=== PATIENT | female | born 1945 | race Caucasian/White ===

== ENCOUNTER 2019-06-29 14:08 | Outpatient (CLI) | payer OTHER, SELFPAY ==
--- NOTE | ~2019-06-29 | MM_ITS ---
EXAMINATION: MM screening ankit BI w alisia HISTORY: Screening mammogram TECHNIQUE: Craniocaudal and mediolateral oblique 3-D tomosynthesis images were obtained and synthetic 2-D images were generated. CAD analysis was submitted and interpreted. COMPARISON: 06/22/2018, 06/20/2017, 06/20/2016 bilateral digital screening mammogram examinations BREAST PARENCHYMAL COMPOSITION: The breasts are almost entirely fatty. FINDINGS: Occasional bilateral benign calcifications. There is no evidence of suspicious mass, calcif ication, or architectural distortion to suggest malignancy in either breast. There has been no suspic ious interval change. IMPRESSION: 1. No mammographic evidence of malignancy. 2. Recommend routine screening mammography in one year. BI-RADS Category 1: Negative Reviewed, dictated and finalized at location A. ETING CLERK
== END 2019-06-29 14:09 | disposition home or self-care (01) ==
PROVIDERS: PCP Internal Medicine; Visit Provider Obstetrics & Gynecology
DX: Z12.31 Encounter for screening mammogram for malignant neoplasm of breast (principal)
CPT/HCPCS: 77063; 77067

== ENCOUNTER 2019-11-02 15:13 | Outpatient (CLI) | payer OTHER, SELFPAY ==
[2019-11-02 15:29] LABS: Basophils Percent Auto 0.2 % (0.2-1.2); Eosinophils Absolute Auto 0.2 K/mm3 (0-0.3); Eosinophils Percent Auto 2.1 % (0-4.4); Hematocrit 37.5 % (37.0-47.0); Immature Granulocyte Absolute 0.04 K/mm3 (0.00-0.031); Immature Granulocyte Percent A 0.4 % (0-0.5); Lymphocytes Absolute Auto 2.04 K/mm3 (0.9-3.2); Lymphocytes Percent Auto 22.6 % (18.3-44.2); Mean Corpuscular Hemoglobin 31.2 pg (26-34); Mean Corpuscular Volume 97.4 fl (80-100); Mean Platelet Volume 9.9 fl (7.4-10.4); Monocytes Absolute Auto 0.6 K/mm3 (0.1-0.6); Monocytes Percent Auto 6.1 % (2.6-8.5); Neutrophils Absolute Auto 6.2 K/mm3 (1.3-6.7); Neutrophils Percent Auto 68.6 % (45.5-73.1); Platelet Count Result 246 k/mm3 (150-375); Red Blood Count 3.85 M/mm3 (4.2-5.4); Red Cell Distribution Width 12.4 % (11.5-14.5)
[2019-11-02 15:42] LABS: Blood Urea Nitrogen 18 mg/dL (7-17); Calcium 10.6 mg/dL (8.4-10.2); Carbon Dioxide 30 mmol/L (22-30); Chloride 101 mmol/L (98-107); Cholesterol 143 mg/dL (0-200); Estimated Glomerular Filt Rate 40; Glucose 100 mg/dL (65-105); HDL Direct 57 mg/dL; Potassium 4.7 mmol/L (3.4-5.0); Sodium 139 mmol/L (137-145); Triglycerides 192 mg/dL (<150)
[2019-11-02 15:53] LABS: LDL Cholesterol Direct 47 mg/dL
[2019-11-02 16:13] LABS: Thyroid Stimulating Hormone 0.069 uIU/mL (0.465-4.680)
[2019-11-02 16:50] LABS: Free T4 Free Thyroxine 1.29 ng/mL (0.78-2.19)
== END 2019-11-02 15:14 | disposition home or self-care (01) ==
PROVIDERS: PCP Internal Medicine; Visit Provider Internal Medicine
DX: E78.2 Mixed hyperlipidemia (principal); E03.9 Hypothyroidism, unspecified; I10 Essential (primary) hypertension
CPT/HCPCS: 36415; 80048; 80061; 84439; 84443; 85025

== ENCOUNTER 2020-03-03 08:06 | Outpatient (CLI) | payer OTHER, SELFPAY ==
[2020-03-03 08:58] LABS: Appearance Urine Clear (Clear); Bilirubin Urine Negative (Negative); Blood Urine Negative (Negative); Color Urine Yellow (Yellow); Glucose Urine UA Negative (Negative); Ketones Urine Negative (Negative); Leukocyte Esterase Ur 1+ LEU/UL (NEGATIVE); Nitrate Urine Negative (Negative); Protein Urine Negative (Negative); Urobilinogen Urine 0.2 mg/dL (<2.0)
[2020-03-03 09:00] LABS: Alanine Aminotransferase 12 U/L (4-35); Albumin Level 4.5 g/dL (3.5-5.1); Alkaline Phosphatase 80 U/L (38-126); Anion Gap 8 mmol/L (8-16); Aspartate Amino Transferase 27 U/L (14-36); Bilirubin,Total 0.6 mg/dL (0.2-1.3); Blood Urea Nitrogen 15 mg/dL (7-17); Calcium 10.1 mg/dL (8.4-10.2); Carbon Dioxide 31 mmol/L (22-30); Chloride 102 mmol/L (98-107); Estimated Glomerular Filt Rate 44; Glucose 117 mg/dL (65-105); Potassium 4.4 mmol/L (3.4-5.0); Sodium 141 mmol/L (137-145)
[2020-03-03 09:11] LABS: RBC Urine 0-2 /hpf (0-2); WBC Urine 0-3 /hpf (0-3)
[2020-03-03 09:29] LABS: Add Urine Microscopic? YES
[2020-03-03 09:30] LABS: Thyroid Stimulating Hormone 0.238 uIU/mL (0.465-4.680)
[2020-03-03 09:38] LABS: Free T4 Free Thyroxine 1.33 ng/mL (0.78-2.19)
[2020-03-03 09:55] LABS: Hemoglobin A1C 5.5 % (<5.7)
== END 2020-03-03 08:07 | disposition home or self-care (01) ==
PROVIDERS: PCP Internal Medicine; Visit Provider Internal Medicine
DX: R73.09 Other abnormal glucose (principal); Z79.899 Other long term (current) drug therapy; I10 Essential (primary) hypertension; E03.9 Hypothyroidism, unspecified
CPT/HCPCS: 36415; 80053; 81001; 83036; 84439; 84443

== ENCOUNTER 2020-07-06 14:27 | Outpatient (CLI) | payer OTHER, SELFPAY ==
--- NOTE | ~2020-07-06 | MM_ITS ---
EXAMINATION: MM screening [facility] BI w alisia HISTORY: Screening mammogram TECHNIQUE: Craniocaudal and mediolateral oblique 3-D tomosynthesis images were obtained and synthetic 2-D images were generated. CAD analysis was submitted and interpreted. COMPARISON: 06/29/2019, 06/22/2018, 06/20/2017 BREAST PARENCHYMAL COMPOSITION: The breasts are almost entirely fatty. FINDINGS: Scattered benign-appearing calcifications are present. There is no evidence of suspicious m ass, calcification, or architectural distortion to suggest malignancy in either breast. There has bee n no suspicious interval change. IMPRESSION: 1. No mammographic evidence of malignancy. 2. Recommend routine screening mammography in one year. BI-RADS Category 2: Benign finding(s). Reviewed, dictated and finalized at location A. FICIAL MARBLE WORKER
== END 2020-07-06 14:28 | disposition home or self-care (01) ==
LOC: ANHIMG 14:29
PROVIDERS: PCP Internal Medicine; Visit Provider Obstetrics & Gynecology
DX: Z12.31 Encounter for screening mammogram for malignant neoplasm of breast (principal)
CPT/HCPCS: 77063; 77067

== ENCOUNTER 2020-07-13 07:45 | Outpatient (CLI) | payer OTHER, SELFPAY ==
[2020-07-13 08:12] LABS: Basophils Percent Auto 0.2 % (0.2-1.2); Eosinophils Absolute Auto 0.2 K/mm3 (0-0.3); Eosinophils Percent Auto 2.1 % (0-4.4); Hematocrit 39.1 % (37.0-47.0); Hemoglobin 12.4 g/dL (12.0-15.0); Immature Granulocyte Absolute 0.03 K/mm3 (0.00-0.031); Immature Granulocyte Percent A 0.3 % (0-0.5); Lymphocytes Absolute Auto 1.72 K/mm3 (0.9-3.2); Lymphocytes Percent Auto 18.5 % (18.3-44.2); Mean Corpuscular HGB Conc 31.7 g/dl (32-36); Mean Corpuscular Hemoglobin 31.1 pg (26-34); Mean Platelet Volume 9.9 fl (7.4-10.4); Monocytes Absolute Auto 0.5 K/mm3 (0.1-0.6); Monocytes Percent Auto 5.8 % (2.6-8.5); Neutrophils Absolute Auto 6.8 K/mm3 (1.3-6.7); Neutrophils Percent Auto 73.1 % (45.5-73.1); Platelet Count Result 217 k/mm3 (150-375); Red Blood Count 3.99 M/mm3 (4.2-5.4); Red Cell Distribution Width 12.4 % (11.5-14.5); White Blood Count 9.3 K/mm3 (4.5-10.0)
[2020-07-13 08:20] LABS: Hemoglobin A1C 5.5 % (<5.7)
[2020-07-13 08:22] LABS: Cholesterol 147 mg/dL (0-200); HDL Direct 65 mg/dL; Triglycerides 140 mg/dL (<150)
[2020-07-13 08:33] LABS: LDL Cholesterol Direct 46 mg/dL
[2020-07-13 08:53] LABS: Thyroid Stimulating Hormone 0.124 uIU/mL (0.465-4.680)
[2020-07-13 10:13] LABS: Free T4 Free Thyroxine 1.28 ng/mL (0.78-2.19); Vitamin D 25 Hydroxy 51.1 ng/mL
== END 2020-07-13 07:46 | disposition home or self-care (01) ==
LOC: ANHLAB 07:47
PROVIDERS: PCP Internal Medicine; Visit Provider Internal Medicine
DX: R73.9 Hyperglycemia, unspecified (principal); D50.9 Iron deficiency anemia, unspecified; Z79.899 Other long term (current) drug therapy; E78.2 Mixed hyperlipidemia; E55.9 Vitamin D deficiency, unspecified; E03.9 Hypothyroidism, unspecified
CPT/HCPCS: 36415; 80061; 82306; 83036; 84439; 84443; 85025

== ENCOUNTER 2020-08-04 08:14 | Outpatient (CLI) | payer OTHER, SELFPAY | END 2020-08-04 08:15 | disposition home or self-care (01) | LOC: ANHCOVIDVC 08:14 | PROVIDERS: PCP Internal Medicine | DX: Z23 Encounter for immunization (principal) | CPT/HCPCS: 0001A; 91300 ==

== ENCOUNTER 2020-08-25 08:14 | Outpatient (CLI) | payer OTHER, SELFPAY | END 2020-08-25 08:15 | LOC: ANHCOVIDVC 08:15 | PROVIDERS: PCP Internal Medicine | DX: Z23 Encounter for immunization (principal) | CPT/HCPCS: 0002A; 91300 ==

== ENCOUNTER 2020-09-18 09:24 | Outpatient (CLI) | payer OTHER, SELFPAY ==
--- NOTE | ~2020-09-18 | NM_ITS ---
EXAMINATION: NM german stress w perfusion DATE: 09/18/2020 12:11 INDICATION: Dyspnea on exertion. TECHNIQUE: Rest images were obtained following intravenous administration of 9.31 mCi Tc99m tetrofosm in (Myoview). The patient was infused intravenously with Lexiscan (regadenoson). Then, 29.4 mCi Tc99m tetrofosmin (Myoview) was administered intravenously, and stress images were obtained. Data was eileen nstructed into short axis and horizontal and vertical long axis SPECT images. Gated SPECT images were also obtained. COMPARISON: Myocardial perfusion imaging 06/30/2017 FINDINGS: There is no definite reversible or fixed perfusion abnormality to suggest ischemia or infar ction. There is no segmental wall motion abnormality. Left ventricular ejection fraction measures 7 0%. IMPRESSION: 1. No definite ischemia or infarct. 2. Normal left ventricular ejection fraction measuring 70%. Reviewed, dictated and finalized at location B.
--- NOTE | 2020-09-18 09:48 | EST_ITS ---
Patient Info Name: Renay Collado Age: 74 years : 1945 Gender: Female Ht: 60 in Wt: 130 lbs BSA: 1.59 m2 Exam Date: 09/18/2020 10:33 AM Exam Location: [facility] Exam Room: [facility] Patient Status: Outpatient Admit Date: 09/18/2020 Staff Ordering Physician: Juan Adamson MD Attending Provider: Exercise Technologist: Merlene Douglas CT Exercise Physician: Beka Esquivel DO Exam Type: CA stress german w NM Study Info A nuclear stress test was performed. Summary 1. 1. Negative lexiscan stress test for ischemic ST changes by ECG criteria. 2. 2. Baseline hypertension. 3. 3. Nuclear scan to follow and will be reported separately. Please correlate with it. 4. 4. Patient informed of the above results. Protocol: Lexiscan Stress ECG Details Stage: REST Duration (min): 1 min : 33 sec HR (bpm): 95 SBP (mmHg): 167 DBP (mmHg): 93 Stage: REST Duration (min): 9 min : 54 sec HR (bpm): 94 SBP (mmHg): 167 DBP (mmHg): 93 Stage: STAGE 1 Duration (min): 0 min : 59 sec HR (bpm): 110 SBP (mmHg): 189 DBP (mmHg): 103 Stage: RECOVERY Duration (min): 1 min : 0 sec HR (bpm): 113 SBP (mmHg): 189 DBP (mmHg): 103 Stage: RECOVERY Duration (min): 2 min : 0 sec HR (bpm): 112 SBP (mmHg): 157 DBP (mmHg): 80 Stage: RECOVERY Duration (min): 2 min : 8 sec HR (bpm): 113 SBP (mmHg): 157 DBP (mmHg): 80 Rest HR: 94 bpm Peak HR: 114 bpm Rest Sys BP: 167 mmHg Peak Sys BP: 189 mmHg Max Pred HR: 148 bpm % Max Pred HR: 77 % Target HR: 126 bpm Max RPP: 21,546 bpm*mmHg Termination Reason: Completed protocol Cardiac Symptoms: Shortness of breath Total Time: 1 min : 0 sec Rest Lemos BP: 93 mmHg Peak Lemos BP: 103 mmHg Total Dose: 0.4 mg Resting ECG Sinus rhythm, RBBB, low voltage in precordial leads. Stress ECG No ST changes. Arrhythmias None. Report Signatures
== END 2020-09-18 09:25 | disposition home or self-care (01) ==
PROVIDERS: PCP Internal Medicine; Visit Provider Internal Medicine
DX: R06.02 Shortness of breath (principal); R79.9 Abnormal finding of blood chemistry, unspecified
CPT/HCPCS: 78452; 93017; A9502; J2785

== ENCOUNTER 2021-01-09 07:40 | Outpatient (CLI) | payer OTHER, SELFPAY ==
[2021-01-09 08:14] LABS: Add Urine Microscopic? YES; Appearance Urine Clear (Clear); Bilirubin Urine Negative (Negative); Blood Urine Negative (Negative); Color Urine Straw (Yellow); Glucose Urine UA Negative (Negative); Ketones Urine Negative (Negative); Leukocyte Esterase Ur 1+ LEU/UL (NEGATIVE); Nitrate Urine Negative (Negative); Protein Urine Negative (Negative); RBC Urine 0-2 /hpf (0-2); Specific Grav Ur 1.009 (1.001-1.035); Urobilinogen Urine Negative mg/dL (<2.0)
[2021-01-09 08:17] LABS: Alanine Aminotransferase 15 U/L (4-35); Albumin Level 4.4 g/dL (3.5-5.1); Alkaline Phosphatase 70 U/L (38-126); Anion Gap 8 mmol/L (8-16); Aspartate Amino Transferase 28 U/L (14-36); Bilirubin,Total 0.6 mg/dL (0.2-1.3); Blood Urea Nitrogen 25 mg/dL (7-17); Carbon Dioxide 28 mmol/L (22-30); Chloride 102 mmol/L (98-107); Cholesterol 146 mg/dL (0-200); Estimated Glomerular Filt Rate 37; Glucose 99 mg/dL (65-110); HDL Direct 56 mg/dL; Potassium 4.3 mmol/L (3.4-5.0); Sodium 138 mmol/L (137-145); Triglycerides 216 mg/dL (<150)
[2021-01-09 08:28] LABS: LDL Cholesterol Direct 52 mg/dL
[2021-01-09 09:30] LABS: Thyroid Stimulating Hormone 0.034 uIU/mL (0.465-4.680)
[2021-01-09 09:38] LABS: Hemoglobin A1C 5.6 % (<5.7)
[2021-01-09 10:17] LABS: Free T4 Free Thyroxine 1.26 ng/mL (0.78-2.19)
== END 2021-01-09 07:41 | disposition home or self-care (01) ==
LOC: ANHLAB 07:43
PROVIDERS: PCP Internal Medicine; Visit Provider Internal Medicine
DX: R73.09 Other abnormal glucose (principal); Z79.899 Other long term (current) drug therapy; I10 Essential (primary) hypertension; E03.9 Hypothyroidism, unspecified; E78.2 Mixed hyperlipidemia
CPT/HCPCS: 36415; 80053; 80061; 81001; 83036; 84439; 84443

== ENCOUNTER 2021-05-22 07:01 | Outpatient (CLI) | payer OTHER, SELFPAY ==
[2021-05-22 07:38] LABS: Hemoglobin A1C 5.7 % (<5.7)
[2021-05-22 07:41] LABS: Basophils Percent Auto 0.1 % (0.2-1.2); Eosinophils Absolute Auto 0.3 K/mm3 (0-0.3); Eosinophils Percent Auto 3.4 % (0-4.4); Hematocrit 38.8 % (37.0-47.0); Hemoglobin 12.5 g/dL (12.0-15.0); Immature Granulocyte Absolute 0.03 K/mm3 (0.00-0.031); Immature Granulocyte Percent A 0.3 % (0-0.5); Lymphocytes Absolute Auto 1.89 K/mm3 (0.9-3.2); Lymphocytes Percent Auto 20.6 % (18.3-44.2); Mean Corpuscular HGB Conc 32.2 g/dl (32-36); Mean Corpuscular Hemoglobin 31.1 pg (26-34); Mean Corpuscular Volume 96.5 fl (80-100); Mean Platelet Volume 10.2 fl (7.4-10.4); Monocytes Absolute Auto 0.6 K/mm3 (0.1-0.6); Monocytes Percent Auto 6.9 % (2.6-8.5); Neutrophils Absolute Auto 6.3 K/mm3 (1.3-6.7); Neutrophils Percent Auto 68.7 % (45.5-73.1); Platelet Count Result 191 k/mm3 (150-375); Red Blood Count 4.02 M/mm3 (4.2-5.4); Red Cell Distribution Width 12.5 % (11.5-14.5); White Blood Count 9.2 K/mm3 (4.5-10.0)
[2021-05-22 07:42] LABS: Alanine Aminotransferase 20 U/L (4-35); Albumin Level 4.8 g/dL (3.5-5.1); Alkaline Phosphatase 77 U/L (38-126); Anion Gap 10 mmol/L (8-16); Aspartate Amino Transferase 42 U/L (14-36); Bilirubin,Total 1.2 mg/dL (0.2-1.3); Blood Urea Nitrogen 17 mg/dL (7-17); Calcium 9.8 mg/dL (8.4-10.2); Carbon Dioxide 25 mmol/L (22-30); Chloride 102 mmol/L (98-107); Cholesterol 162 mg/dL (0-200); Estimated Glomerular Filt Rate 40; Glucose 117 mg/dL (65-110); HDL Direct 59 mg/dL; Potassium 4.6 mmol/L (3.4-5.0); Sodium 137 mmol/L (137-145); Triglycerides 219 mg/dL (<150)
[2021-05-22 07:45] LABS: LDL Cholesterol Direct 55 mg/dL
[2021-05-22 08:03] LABS: Thyroid Stimulating Hormone 0.056 uIU/mL (0.465-4.680)
[2021-05-22 11:22] LABS: Free T4 Free Thyroxine 1.45 ng/mL (0.78-2.19)
== END 2021-05-22 07:02 | disposition home or self-care (01) ==
LOC: ANHLAB 07:03
PROVIDERS: PCP Internal Medicine; Visit Provider Internal Medicine
DX: E03.9 Hypothyroidism, unspecified (principal); E78.2 Mixed hyperlipidemia; I10 Essential (primary) hypertension; Z79.899 Other long term (current) drug therapy; D50.9 Iron deficiency anemia, unspecified; I45.10 Unspecified right bundle-branch block; K21.9 Gastro-esophageal reflux disease without esophagitis
CPT/HCPCS: 36415; 80053; 80061; 82306; 83036; 84439; 84443; 85025

== ENCOUNTER 2021-05-31 11:32 | Outpatient (CLI) | payer OTHER, SELFPAY ==
[2021-06-05 19:59] LABS: Albumin 4.2 g/dL (3.8-4.8); Alpha 1 Globulin 0.4 g/dL (0.2-0.3); Alpha 2 Globulin 1.1 g/dL (0.5-0.9); Beta 1 Globulin 0.5 g/dL (0.4-0.6); Gamma Globulin 1.4 g/dL (0.8-1.7); Protein, Total 7.9 g/dL (6.1-8.1)
[2021-06-07 07:31] LABS: Creatinine, Random Urine 61 mg/dL (20-275); Total Protein/Creatinine Ratio 115 mg/g creat (21-161)
== END 2021-05-31 11:33 | disposition home or self-care (01) ==
LOC: ANHLAB 11:33
PROVIDERS: PCP Internal Medicine; Visit Provider Internal Medicine
DX: R77.9 Abnormality of plasma protein, unspecified (principal)
CPT/HCPCS: 36415; 82570; 84155; 84156; 84165; 84166

== ENCOUNTER 2021-07-10 09:23 | Outpatient (CLI) | payer OTHER, SELFPAY ==
--- NOTE | ~2021-07-10 | MM_ITS ---
EXAMINATION: MM screening ankit BI w alisia HISTORY: Screening TECHNIQUE: Craniocaudal and mediolateral oblique 3-D tomosynthesis images were obtained and synthetic 2-D images were generated. CAD analysis was submitted and interpreted. COMPARISON: Comparison to multiple prior studies sequentially, with oldest reviewed study dated 05/03. BREAST PARENCHYMAL COMPOSITION: There are scattered areas of fibroglandular density. FINDINGS: There is no evidence of suspicious mass, calcification, or architectural distortion to sugg est malignancy in either breast. There has been no suspicious interval change. IMPRESSION: 1. No mammographic evidence of malignancy. 2. Recommend routine screening mammography in one year. BI-RADS Category 1: Negative Reviewed, dictated and finalized at location A. HER THEATER ARTS
== END 2021-07-10 09:24 | disposition home or self-care (01) ==
LOC: ANHIMG 09:25
PROVIDERS: PCP Internal Medicine; Visit Provider Obstetrics & Gynecology
DX: Z12.31 Encounter for screening mammogram for malignant neoplasm of breast (principal)
CPT/HCPCS: 77063; 77067

== ENCOUNTER 2021-10-01 07:18 | Outpatient (CLI) | payer OTHER, SELFPAY ==
[2021-10-01 07:49] LABS: Basophils Percent Auto 0.1 % (0.2-1.2); Eosinophils Absolute Auto 0.2 K/mm3 (0-0.3); Eosinophils Percent Auto 2.4 % (0-4.4); Hematocrit 39.5 % (37.0-47.0); Hemoglobin 12.2 g/dL (12.0-15.0); Immature Granulocyte Absolute 0.04 K/mm3 (0.00-0.031); Immature Granulocyte Percent A 0.5 % (0-0.5); Lymphocytes Absolute Auto 1.91 K/mm3 (0.9-3.2); Lymphocytes Percent Auto 21.9 % (18.3-44.2); Mean Corpuscular HGB Conc 30.9 g/dl (32-36); Mean Corpuscular Hemoglobin 30.5 pg (26-34); Mean Corpuscular Volume 98.8 fl (80-100); Mean Platelet Volume 10.1 fl (7.4-10.4); Monocytes Absolute Auto 0.5 K/mm3 (0.1-0.6); Monocytes Percent Auto 6.2 % (2.6-8.5); Neutrophils Percent Auto 68.9 % (45.5-73.1); Platelet Count Result 177 k/mm3 (150-375); Red Cell Distribution Width 12.6 % (11.5-14.5); White Blood Count 8.7 K/mm3 (4.5-10.0)
[2021-10-01 07:59] LABS: Alanine Aminotransferase 20 U/L (4-35); Albumin Level 4.9 g/dL (3.5-5.1); Alkaline Phosphatase 86 U/L (38-126); Anion Gap 8 mmol/L (8-16); Aspartate Amino Transferase 35 U/L (14-36); Bilirubin,Total 1.2 mg/dL (0.2-1.3); Blood Urea Nitrogen 17 mg/dL (7-17); Calcium 9.7 mg/dL (8.4-10.2); Carbon Dioxide 26 mmol/L (22-30); Chloride 103 mmol/L (98-107); Cholesterol 162 mg/dL (0-200); Estimated Glomerular Filt Rate 40; Glucose 113 mg/dL (65-110); HDL Direct 66 mg/dL; Potassium 4.4 mmol/L (3.4-5.0); Sodium 137 mmol/L (137-145); Triglycerides 154 mg/dL (<150)
[2021-10-01 08:05] LABS: Hemoglobin A1C 5.6 % (<5.7)
[2021-10-01 08:10] LABS: LDL Cholesterol Direct 48 mg/dL
[2021-10-01 08:20] LABS: Free T4 Free Thyroxine 1.61 ng/mL (0.78-2.19)
[2021-10-01 08:28] LABS: Thyroid Stimulating Hormone < 0.015 uIU/mL (0.465-4.680)
== END 2021-10-01 07:19 | disposition home or self-care (01) ==
LOC: ANHLAB 07:20
PROVIDERS: PCP Internal Medicine; Visit Provider Internal Medicine
DX: R73.09 Other abnormal glucose (principal); I10 Essential (primary) hypertension; E03.9 Hypothyroidism, unspecified; E78.2 Mixed hyperlipidemia
CPT/HCPCS: 36415; 80053; 80061; 83036; 84439; 84443; 85025

== ENCOUNTER 2022-01-16 10:08 | Outpatient (CLI) | payer OTHER, SELFPAY ==
--- NOTE | ~2022-01-16 | XR_ITS ---
EXAMINATION: XR sinus min 3V INDICATION: Chronic sinus pain TECHNIQUE: Five views of the paranasal sinuses are obtained. COMPARISON: None available FINDINGS: The frontal sinuses are hypoplastic. The visualized paranasal sinuses appear to be well aer ated. The facial bones are unremarkable. Moderate to severe cervical spondylosis is noted. IMPRESSION: 1. Unremarkable sinus radiographs. If there is high clinical suspicion for sinus disease, consider si nus CT. Reviewed, dictated and finalized at location A. IMPRESSION: 1. Unremarkable sinus radiographs. If there is high clinical suspicion for sinu s disease, consider sinus CT.
== END 2022-01-16 10:09 | disposition home or self-care (01) ==
LOC: ANHIMG 10:12
PROVIDERS: PCP Internal Medicine; Visit Provider Internal Medicine
DX: R51.9 Headache, unspecified (principal); J34.89 Other specified disorders of nose and nasal sinuses
CPT/HCPCS: 70220

== ENCOUNTER 2022-01-29 13:45 | Outpatient (CLI) | payer OTHER, SELFPAY ==
--- NOTE | ~2022-01-29 | CT_ITS ---
EXAMINATION: CT sinus wo con DATE: 01/29/2022 14:05 INDICATION: Chronic sinus pain TECHNIQUE: Computed tomography (CT) of the paranasal sinuses was performed without contrast. Iterativ e reconstruction technique was employed. Exam dose: 272.65 mGy-cm total exam DLP. COMPARISON: 01/16/2022 sinuses FINDINGS: Midline nasal septum. Moderate symmetric prominence of the nasal turbinates. The ostiomeatal units are patent bilaterally. There is mild mucoperiosteal thickening of the lower aspect of the right sphenoid sinus but the paran anna sinuses and mastoid air cells are otherwise normally developed and aerated. IMPRESSION: Mild mucoperiosteal thickening of the lower aspect of the right sphenoid sinus; otherwis e patent paranasal sinuses, ostiomeatal units and paranasal sinuses Reviewed, dictated and finalized at Location A. Reviewed, dictated and finalized at location B. IMPRESSION: Mild mucoperiosteal thickening of the lower aspect of the right sp henoid sinus; otherwise patent paranasal sinuses, ostiomeatal units and paranas al sinuses
== END 2022-01-29 13:46 | disposition home or self-care (01) ==
PROVIDERS: PCP Internal Medicine; Visit Provider Internal Medicine
DX: R44.8 Other symptoms and signs involving general sensations and perceptions (principal); J34.89 Other specified disorders of nose and nasal sinuses
CPT/HCPCS: 70486

== ENCOUNTER 2022-02-26 07:31 | Outpatient (CLI) | payer OTHER, SELFPAY ==
[2022-02-26 08:00] LABS: Anion Gap 15 mmol/L (8-16); Blood Urea Nitrogen 19 mg/dL (7-17); Calcium 9.7 mg/dL (8.4-10.2); Carbon Dioxide 26 mmol/L (22-30); Chloride 100 mmol/L (98-107); Cholesterol 158 mg/dL (0-200); Estimated Glomerular Filt Rate 44; Glucose 131 mg/dL (65-110); HDL Direct 71 mg/dL; Potassium 3.9 mmol/L (3.4-5.0); Sodium 141 mmol/L (137-145); Triglycerides 128 mg/dL (<150)
[2022-02-26 08:05] LABS: Hemoglobin A1C 5.5 % (<5.7)
[2022-02-26 08:11] LABS: LDL Cholesterol Direct 46 mg/dL
[2022-02-26 08:21] LABS: Basophils Percent Auto 0.2 % (0.2-1.2); Eosinophils Absolute Auto 0.1 K/mm3 (0-0.3); Eosinophils Percent Auto 1.3 % (0-4.4); Hematocrit 38.6 % (37.0-47.0); Hemoglobin 11.9 g/dL (12.0-15.0); Immature Granulocyte Absolute 0.05 K/mm3 (0.00-0.031); Immature Granulocyte Percent A 0.5 % (0-0.5); Mean Corpuscular HGB Conc 30.8 g/dl (32-36); Mean Corpuscular Hemoglobin 30.4 pg (26-34); Mean Corpuscular Volume 98.7 fl (80-100); Mean Platelet Volume 10.1 fl (7.4-10.4); Monocytes Absolute Auto 0.6 K/mm3 (0.1-0.6); Monocytes Percent Auto 6.3 % (2.6-8.5); Neutrophils Absolute Auto 5.9 K/mm3 (1.3-6.7); Neutrophils Percent Auto 63.7 % (45.5-73.1); Platelet Count Result 229 k/mm3 (150-375); Red Blood Count 3.91 M/mm3 (4.2-5.4); Red Cell Distribution Width 13.2 % (11.5-14.5); White Blood Count 9.3 K/mm3 (4.5-10.0)
[2022-02-26 08:31] LABS: Thyroid Stimulating Hormone < 0.015 uIU/mL (0.465-4.680)
== END 2022-02-26 07:32 | disposition home or self-care (01) ==
LOC: ANHLAB 07:33
PROVIDERS: PCP Internal Medicine; Visit Provider Internal Medicine
DX: I10 Essential (primary) hypertension (principal); R73.09 Other abnormal glucose; E78.2 Mixed hyperlipidemia; E03.9 Hypothyroidism, unspecified
CPT/HCPCS: 36415; 80048; 80061; 83036; 84439; 84443; 85025

== ENCOUNTER 2022-05-06 10:07 | Outpatient (CLI) | payer OTHER, SELFPAY ==
--- NOTE | 2022-05-06 10:25 | ECG_ITS ---
Measurements Intervals [place] Rate: 90 P: -7 ID: [id number] QRS: -28 QRSD: 121 T: -5 QT: 345 QTc: 424 Interpretive Statements SINUS RHYTHM BASELINE ARTIFACT PRESENT RIGHT BUNDLE BRANCH BLOCK [120+ ms QRS DURATION, UPRIGHT V1, 40+ ms S IN I/aVL/V4/V5/V6] POSSIBLE ANTERIOR MYOCARDIAL INFARCTION [30 ms Q WAVE IN V3/V4, OR R < 0.2 mV IN V4], OF INDETERMINATE AGE NO PREVIOUS ECG AVAILABLE FOR COMPARISON Electronically Signed On 05-06-2022 11:26:53 BITUMASTIC APPLIER by Vladislav Hernandez M.D.
[2022-05-06 10:52] LABS: Hematocrit 37.4 % (37.0-47.0); Hemoglobin 11.7 g/dL (12.0-15.0)
[2022-05-06 11:03] LABS: Anion Gap 9 mmol/L (8-16); Blood Urea Nitrogen 20 mg/dL (7-17); Calcium 9.7 mg/dL (8.4-10.2); Carbon Dioxide 26 mmol/L (22-30); Chloride 100 mmol/L (98-107); Estimated Glomerular Filt Rate 49; Glucose 119 mg/dL (65-110); Potassium 4.3 mmol/L (3.4-5.0); Prothrombin Time 12.7 Seconds (11.1-14.7); Sodium 135 mmol/L (137-145)
[2022-05-06 11:04] LABS: Partial Thromboplastin Time 27.1 SECONDS (22.3-36.8)
== END 2022-05-06 10:08 | disposition home or self-care (01) ==
PROVIDERS: Anesthesiology; PCP Internal Medicine; Visit Provider Otolaryngology
DX: Z01.818 Encounter for other preprocedural examination (principal); D50.9 Iron deficiency anemia, unspecified; I12.9 Hypertensive chronic kidney disease with stage 1 through stage 4 chronic kidney disease, or unspecified chronic kidney disease; R94.31 Abnormal electrocardiogram [ECG] [EKG]; I45.10 Unspecified right bundle-branch block
CPT/HCPCS: 36415; 80048; 85014; 85018; 85610; 85730; 93005

== ENCOUNTER 2022-05-10 01:01 | Day surgery (SDC) | payer OTHER, SELFPAY ==
--- NOTE | 2022-05-02 13:29 | PC.NURSE ---
Report to the Outpatient Waiting Room, entrance under the green pavilion located off [facility], at time ___10:15AM____ on date __05/10/22 . Planned Procedure Time: __12:15PM . Time changes happen often and if your time is changed the preop area will call you the afternoon before. - You and your visitor will be asked to self-screen and do not enter if you have any COVID symptoms. - Only one visitor is requested with a max of two and NO children visitors are allowed at this time. - The patient visitor may be requested to leave or wait in car when not with patient due to distancing restrictions. - A mask is optional within the hospital. Patients may have clear liquids (water, carbonated beverages, clear teas, apple juice) until 3 hours prior to surgery with a maximum of 20 ounces. - No food from midnight until time of surgery ed. Take the following medications with a SIP of water the morning of surgery: ____LEVOTHYROXINE Medications to discontinue per physician HOLD ALL VITAMINS/SUPPLEMENTS 3 DAYS PRE-OP Date to take last dose 05/06/22 Please no make-up, nail beninese, hairspray, perfume, deodorant, or body powder the day of surgery. No jewelry (including any body piercings) or valuables the day of surgery, leave them at home. Please take a shower or bath the night before, or the morning of, surgery with an antibacterial soap. Wear comfortable, loose fitting clothing. Children are encouraged to wear pajamas. - Jewelry must be removed prior to entering the operating room. Rings and piercings that are not removed may be cut off. - The hospital will not accept responsibility for valuables. - Please leave all valuables, including medications, at home the day of surgery. If you are going home after surgery, a licensed backhaul driver must drive you home. - NO public transportation without another adult if you receive anesthesia. - We recommend that an adult stay with you for 24 hours following discharge. - We also recommend that you do not drive, make important decision, drink alcoholic beverages, or take any drugs that were not prescribed by your health care provider for at least 24 hours after your discharge time. Follow any additional instructions given to you from your surgeon. If you or anyone in your household have experienced Covid symptoms in the past week, please notify your surgeon or the nurse liaison at the phone number below for possible testing. Telephone instructions given to __PATIENT and asked if any additional questions and then verbalized understanding. Patient advised to call surgeon office or pre surgery nurse liaison [phone] if any additional questions.
[2022-05-02 13:30] VITALS: BMI 23.6
--- NOTE | 2022-05-09 12:55 | PM.IMHP ---
H&P: HPI History of Present Illness Date/Time: 05/09/22 12:55 Chief Complaint: chronic sinusitis fungal sinusitis facial pain postnasal drainage [facility] Past Medical History Medical History Abnormal EKG Abnormal finding of blood chemistry, unspecified Acute maxillary sinusitis Anemia of chronic renal failure, stage 4 (severe) Benign essential hypertension BMI 23.0-23.9, adult BMI 24.0-24.9, adult BMI 25.0-25.9,adult Cellulitis of sidewall of nose Chronic sinusitis CKD (chronic kidney disease) Clogged ear JUAREZ (dyspnea on exertion) Elevated glucose Elevated serum protein level Encounter for Medicare annual wellness exam Encounter for preventive health examination Encounter for routine adult health examination without abnormal findings Fever and chills FHx: diabetes mellitus GERD (gastroesophageal reflux disease) Hearing loss Hospital discharge follow-up Hyperlipidemia Hypertension Hypothyroidism (acquired) Impaired glucose tolerance (oral) Intestinal malabsorption Iron deficiency anemia Need for shingles vaccine 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 Persistent cough RBBB (right bundle branch block) Reactive airway disease Seasonal allergies Sinus pain SOB (shortness of breath) Unintentional weight loss Surgical History Surgical History History of hysteroscopy 05/27/03 hscope d&c/polypectomy--postmenopausal bleeding-benign History of ovarian cystectomy 1991 History of tonsillectomy 1975 Status post anal fissurectomy 1973 Family History Family History Father Diabetes mellitus Family history of cardiovascular disease Family history of diabetes mellitus in first degree relative Family history of heart disease in male family member before age 55 Cancer Hypertension Cerebrovascular accident Mother Family history of Alzheimer's disease Diabetes mellitus Hypertension Social History Social History (Updated 05/01/22 @ 08:07 by Nurys Hedrick CMA) Smoking status: Never smoker Second hand tobacco smoke exposure: No Alcohol intake: never Substance use: never Substance use type: does not use Lack of Transportation: No Lack of Food: Never True Current Housing: I Have Housing Concerned About Future Housing: No Difficulty Paying Gas/Electric Bills: No Difficulty Paying for Meds: No Currently Unemployed: No Education: Bachelor's Degree Difficulty w/ Childcare or Family Care: No Additional living arrangements comments: single 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 Gender identity (if verbalized by the patient): Female Sexual Orientation (if Verbalized by the Patient): Straight or Heterosexual Spiritual care concerns: No Meds Home Medications and Allergies Home Medications Medication Instructions Recorded Confirmed Type [id number]-[id number]-Y-Mn-boron 1 tablet PO BID 03/19/19 05/02/22 History 750 mg-600 mg-30 mg-1mg-1.5mg tablet iron polysaccharide complex-iron 1 tablet PO BID 03/19/19 05/02/22 History heme polypeptide 28 mg tablet lutein 25 mg-zeaxanthin 5 mg 1 cap PO DAILY 03/19/19 05/02/22 History capsule multivitamin 1 tablet PO DAILY 03/19/19 05/02/22 History mecobalamin (vitamin B12) 1,000 1,000 mcg sublingual DAILY 06/29/19 05/02/22 History mcg disintegrating tablet,sublingual omega-3 fatty acids 1,000 mg 1,000 mg PO DAILY 03/08/20 05/02/22 History capsule (Fish Oil Concentrate) niacin 500 mg tablet,extended 500 mg PO QAM 09/01/20 05/02/22 History release (Slo-Niacin) fluticasone propionate 50 2 spray intranasal DAILY 01/16/22 05/02/22 History mcg/actuation nasal spray,suspension azelastine 137 mcg (0.1 %) nasal See Rx Instructions .Route 03/07/22 05/02/22 Rx spray aerosol .COMPLEX #90 mL mupirocin 2 % topical ointment 1 applic topi
[2022-05-10] VITALS (8 sets, daily range): BP systolic 126–176; BP diastolic 50–92; PULSE 65–99; RESP 14–22; TEMP 36.8–36.9; O2SAT 100
--- NOTE | 2022-05-10 07:16 | WPDHPUPDATE1 ---
History and Physical Update Update Date/Time: 05/10/22 07:16 History and Physical has been reviewed, including an updated exam of the patient. There are NO changes in the patient's condition. Risks, benefits, and alternatives have been discussed and questions answered. Patient agrees to proceed with procedure.
[2022-05-10] MEDS: ACETAMINOPHEN 500 MG TABLET 1000 MG PO (09:58)
--- NOTE | 2022-05-10 10:07 | WPDANESEPPF ---
Anes - Initial Pre Proc Eval Procedure: Operation Date: 05/10/22 11:15 Proposed Procedures p Image Guided Right Sphenoidotomy with Tissue Removal, Right Frontal Sinusotomy, Right Endoscopic Total Ethmoidectomy, Right Maxillary Antrostomy without Tissue Removal - Jass Velásquez MD s Endoscopic Septoplasty - Jass Velásquez MD Date/Time: 05/10/22 10:07 Surgeon: Jass Velásquez MD Pre Op Diagnosis: Chronic Sinusitis Patient Data Age: 76 Gender: F Height: 1.52 m Weight: 52 kg Last Vital Signs Temp 36.9 C 05/10/22 09:54 Pulse 99 05/10/22 09:54 Resp 14 05/10/22 09:54 BP 126/76 05/10/22 09:54 Allergies Allergy/AdvReac Type Severity Reaction Status Date / Time Sulfa (Sulfonamide Allergy Unknown Unknown Verified 05/10/22 10:01 Antibiotics) Home Medications Medication Instructions Recorded Confirmed Type ujblatmgdtn-schfzxowf-K-Mn-boron 1 tablet PO BID 03/19/19 05/02/22 History 750 mg-600 mg-30 mg-1mg-1.5mg tablet iron polysaccharide complex-iron 1 tablet PO BID 03/19/19 05/02/22 History heme polypeptide 28 mg tablet lutein 25 mg-zeaxanthin 5 mg 1 cap PO DAILY 03/19/19 05/02/22 History capsule multivitamin 1 tablet PO DAILY 03/19/19 05/02/22 History mecobalamin (vitamin B12) 1,000 1,000 mcg sublingual DAILY 06/29/19 05/02/22 History mcg disintegrating tablet,sublingual omega-3 fatty acids 1,000 mg 1,000 mg PO DAILY 03/08/20 05/02/22 History capsule (Fish Oil Concentrate) niacin 500 mg tablet,extended 500 mg PO QAM 09/01/20 05/02/22 History release (Slo-Niacin) fluticasone propionate 50 2 spray intranasal DAILY 01/16/22 05/02/22 History mcg/actuation nasal spray,suspension azelastine 137 mcg (0.1 %) nasal See Rx Instructions .Route 03/07/22 05/02/22 Rx spray aerosol .COMPLEX #90 mL mupirocin 2 % topical ointment 1 applic topical BID #22 grams 05/01/22 05/02/22 Rx biotin 5,000 mcg disintegrating 5,000 mcg PO DAILY 05/02/22 05/02/22 History tablet folic acid 1 mg tablet 1 mcg PO DAILY 05/02/22 05/02/22 History levothyroxine 75 mcg tablet 75 mcg PO QAM 05/02/22 05/02/22 History lisinopril 20 mg tablet 20 mg PO QAM 05/02/22 05/02/22 History simvastatin 40 mg tablet 40 mg PO DAILY 05/02/22 05/02/22 History Patient hx anesthesia problems: none Family hx anesthesia problems: none Results Review: All pre-operative results and documents have been reviewed as part of the pre-operative evaluation. [facility] Past Medical History Medical History Abnormal EKG Abnormal finding of blood chemistry, unspecified Acute maxillary sinusitis Anemia of chronic renal failure, stage 4 (severe) Benign essential hypertension BMI 23.0-23.9, adult BMI 24.0-24.9, adult BMI 25.0-25.9,adult Cellulitis of sidewall of nose Chronic sinusitis CKD (chronic kidney disease) Clogged ear JUAREZ (dyspnea on exertion) Elevated glucose Elevated serum protein level Encounter for Medicare annual wellness exam Encounter for preventive health examination Encounter for routine adult health examination without abnormal findings Fever and chills FHx: diabetes mellitus GERD (gastroesophageal reflux disease) Hearing loss Hospital discharge follow-up Hyperlipidemia Hypertension Hypothyroidism (acquired) Impaired glucose tolerance (oral) Intestinal malabsorption Iron deficiency anemia Need for shingles vaccine 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
--- NOTE | 2022-05-10 11:19 | SUR.PREOP ---
MODIFIED CONSENT FORM. DR, RN AND PT ALL INITIALED.
[2022-05-10] MEDS: LACTATED RINGERS 1,000 ML 30 ML IV CONT ×2 (11:21→12:19)
[2022-05-10] MEDS: ceFAZolin 2 GM/D5W 50 ML 2 GM/50 ML BAG IVPB (11:22)
[2022-05-10] MEDS: OXYMETAZOLINE HCL 0.05% NAS 15 ML BTL (*BKC) 1 SPRAY NASAL (11:41)
--- NOTE | 2022-05-10 12:37 | P.OP_ITS ---
Procedure Note - Detailed Date of Procedure 05/10/22 Pre-op Diagnosis Chronic Sinusitis,fungal sinusitis, facial pain Post-op Diagnosis Same Procedure Performed image guided right-sided sphenoidotomy with tissue removal, right-sided frontal sinusotomy, right-sided anterior ethmoidectomy Surgeon Jass Velásquez MD Anesthesia General Indications see above Findings diseased tissue within the operated sinus fungal debris in the right sphenoid Description of Procedure patient identified consent verified. Patient brought operating. Time-out performed. General anesthesia induced endotracheal tube secured. Patient prepped draped image guidance confirmed. Second time-out performed. Afrin- soaked pledgets placed in the right side removed after 5 minutes. 0 degree endoscope utilized transnasal sphenoidotomy performed image guidance utilized right middle turbinate lateralized superior turbinate trimmed to the bottom 3rd sphenoid sinus located with image guidance opened with 1 Kerrison as well as sphenoid punch as well as microdebrider to remove mucosa. Fungal tissue irrigated out and suctioned out. Sphenoid sinus was clean after procedure. Middle turbinate medialized. Anterior ethmoids removed combination Kerrison microdebrider. Frontal sinus frontal sinusotomy performed using image guidance frontal sinus suction and Cobra. Was opened widely. Bleeding was controlled with the intermittent application of Afrin-soaked pledgets. Nova pack placed against both sinuses following the procedure. Blood loss only about 10 cc. I performed all dictated portions the procedure. There were no immediate complications. Patient taken to PACU. Estimated Blood Loss 10 Drains No Packing Yes (Novapak) Pathology None sent Complications No immediate complications Condition Stable Disposition PACU
== END 2022-05-10 14:07 | disposition home or self-care (01) ==
PROVIDERS: PCP Internal Medicine; Visit Provider Otolaryngology
PROC: (CPT 31254; principal; 2022-05-10 11:15)
DX: J32.9 Chronic sinusitis, unspecified (principal); B48.8 Other specified mycoses; R51.9 Headache, unspecified; L73.9 Follicular disorder, unspecified; R09.82 Postnasal drip; I12.9 Hypertensive chronic kidney disease with stage 1 through stage 4 chronic kidney disease, or unspecified chronic kidney disease; N18.4 Chronic kidney disease, stage 4 (severe); D63.1 Anemia in chronic kidney disease; K21.9 Gastro-esophageal reflux disease without esophagitis; E78.5 Hyperlipidemia, unspecified; E03.9 Hypothyroidism, unspecified
CPT/HCPCS: 31254; 31288; 31276; 61782; A9270; J0330; J0690; J1100; J2405; J2704; J3010; J7120

== ENCOUNTER 2022-07-16 07:01 | Outpatient (CLI) | payer OTHER, SELFPAY ==
[2022-07-16 07:29] LABS: Anion Gap 8 mmol/L (8-16); Blood Urea Nitrogen 15 mg/dL (7-17); Calcium 9.6 mg/dL (8.4-10.2); Carbon Dioxide 28 mmol/L (22-30); Chloride 101 mmol/L (98-107); Cholesterol 238 mg/dL (0-200); Estimated Glomerular Filt Rate 54; Glucose 144 mg/dL (65-110); HDL Direct 75 mg/dL; Potassium 3.8 mmol/L (3.4-5.0); Sodium 137 mmol/L (137-145); Triglycerides 134 mg/dL (<150)
[2022-07-16 07:30] LABS: Basophils Percent Auto 0.1 % (0.2-1.2); Eosinophils Absolute Auto 0.1 K/mm3 (0-0.3); Eosinophils Percent Auto 0.5 % (0-4.4); Hemoglobin 11.9 g/dL (12.0-15.0); Immature Granulocyte Absolute 0.06 K/mm3 (0.00-0.031); Immature Granulocyte Percent A 0.4 % (0-0.5); Lymphocytes Absolute Auto 1.64 K/mm3 (0.9-3.2); Lymphocytes Percent Auto 12.3 % (18.3-44.2); Mean Corpuscular HGB Conc 32.2 g/dl (32-36); Mean Corpuscular Hemoglobin 31.7 pg (26-34); Mean Corpuscular Volume 98.7 fl (80-100); Mean Platelet Volume 9.9 fl (7.4-10.4); Monocytes Percent Auto 7.3 % (2.6-8.5); Neutrophils Absolute Auto 10.6 K/mm3 (1.3-6.7); Neutrophils Percent Auto 79.4 % (45.5-73.1); Platelet Count Result 312 k/mm3 (150-375); Red Blood Count 3.75 M/mm3 (4.2-5.4); Red Cell Distribution Width 13.2 % (11.5-14.5); White Blood Count 13.3 K/mm3 (4.5-10.0)
[2022-07-16 07:40] LABS: LDL Cholesterol Direct 98 mg/dL
[2022-07-16 07:58] LABS: Iron 28 ug/dL (37-170)
[2022-07-16 08:00] LABS: Thyroid Stimulating Hormone < 0.015 uIU/mL (0.465-4.680)
[2022-07-16 08:08] LABS: Percent Iron Saturation 15 % (20-50)
[2022-07-16 08:16] LABS: Free T4 Free Thyroxine 1.77 ng/mL (0.78-2.19)
[2022-07-16 08:21] LABS: Hemoglobin A1C 5.4 % (<5.7)
== END 2022-07-16 07:02 | disposition home or self-care (01) ==
LOC: ANHLAB 07:02
PROVIDERS: PCP Internal Medicine; Visit Provider Internal Medicine
DX: D50.9 Iron deficiency anemia, unspecified (principal); R73.09 Other abnormal glucose; E78.2 Mixed hyperlipidemia; I10 Essential (primary) hypertension; E03.9 Hypothyroidism, unspecified
CPT/HCPCS: 36415; 80048; 80061; 82728; 83036; 83540; 83550; 84439; 84443; 85025

== ENCOUNTER 2022-08-02 10:23 | Observation (INO) | payer OTHER, SELFPAY ==
--- NOTE | ~2022-08-02 | MR_ITS ---
EXAMINATION: MR brain/brain stem wo/w con DATE: 08/04/2022 09:02 INDICATION: Delirium. TECHNIQUE: Magnetic resonance imaging (MRI) of the brain and brainstem was performed without and with 10 mL MultiHance intravenous contrast. COMPARISON: Head CT 08/02/2022 FINDINGS: There is no acute ischemic infarct. There is a 2.4 x 0.7 cm enhancing mass in the fourth ve ntricle and left foramen of Luschka that demonstrates decreased T2*weighted signal intensity suggesti ng internal blood products. There is increased T2-weighted signal intensity in the adjacent left cere bellum and left middle cerebellar peduncle. There is a enhancing mass involving the sella, suprasella r cistern, and prepontine cistern. The mass measures 2.8 x 0.8 x 2.0 cm. There is no acute ischemic i nfarct. There are scattered areas of nonspecific increased T2-weighted signal intensity in the cerebr al white matter, which is within normal limits for the patient's age. The ventricles are normal in si ze. The orbits are normal. There is mild mucosal thickening in the paranasal sinuses. The mastoid air cells are normal. IMPRESSION: 1. 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 The differential diagnosis includes metasta tic disease and hemangioblastoma. 2. Mass involving the sella, suprasellar cistern, and prepontine cistern. The differential diagnosis includes metastatic disease, meningioma, and pituitary macroadenoma. 3. Consider chest CT to screen for a primary malignancy. Reviewed, dictated and finalized at location A. MOTIVE SALES EXECUTIVE IMPRESSION: 1. 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 The differential diagnosis includes metastatic disease and hemangioblastoma. 2. Mass involving the sella, suprasellar cistern, and prepontine cistern. The d ifferential diagnosis includes metastatic disease, meningioma, and pituitary ma croadenoma. 3. Consider chest CT to screen for a primary malignancy.
--- NOTE | ~2022-08-02 | CT_ITS ---
EXAMINATION: CT abdomen pelvis w con DATE: 08/03/2022 09:12 INDICATION: Decreased appetite. TECHNIQUE: Computed tomography (CT) of the abdomen and pelvis was performed with 100 mL Omnipaque 350 intravenous contrast. Automated exposure control and iterative reconstruction technique were employe d. The dose-length product was 284.71 mGy-cm. COMPARISON: CT abdomen and pelvis 11/21/2017 FINDINGS: The visualized portions of the lung bases demonstrate mild atelectasis. No pleural effusion . The heart size is normal. No pericardial effusion. The liver demonstrates focal steatosis adjacent to the falciform ligament. There are gallstones in the gallbladder, which is normal in size. The sple en and pancreas are normal. There is chronic thickening of the adrenal glands, likely benign. There a re cysts in the kidneys measuring up to 1.9 cm on the right. There is cortical thinning of the kidney s. There is a left inguinal hernia containing fat. There are no dilated loops of bowel. The appendix is not visualized. There is calcified atherosclerosis of the aorta and many of the other arteries. Th ere are no pathologically enlarged lymph nodes. There is no free intraperitoneal fluid. There is a ch ronic compression fracture of L2. There is a hemangioma in T12 vertebral body. IMPRESSION: 1. Left inguinal hernia containing fat. 2. Cholelithiasis. No evidence of acute cholecystitis. Reviewed, dictated and finalized at location A. ETIZER
--- NOTE | ~2022-08-02 | CT_ITS ---
EXAMINATION: CT diagnostic chest w con DATE: 08/04/2022 18:20 INDICATION: Intracranial masses TECHNIQUE: Transaxial computed tomographic images of the chest were obtained after the administration of 75 cc of Omnipaque 350 intravenous contrast. The dose-length product (DLP) was 133.74 mGy-cm. Ite rative reconstruction was used. COMPARISON: None FINDINGS: There is mild dependent atelectasis. No pleural effusion or pneumothorax. No pathologically enlarged thoracic lymph nodes are identified. The heart size is normal. There is mild thoracic spond ylosis. There is severe lower cervical spondylosis. There are multiple areas of cortical scarring of the kidneys. There is focal hypoattenuation of the liver adjacent to the ligamentum teres, likely foc al fatty infiltration. IMPRESSION: 1. Mild atelectasis. No source for intracranial masses identified. Reviewed, dictated and finalized at location F. REEL OPERATOR
--- NOTE | ~2022-08-02 | CT_ITS ---
EXAMINATION: CT brain wo con DATE: 08/02/2022 12:27 INDICATION: Weakness. Falls. TECHNIQUE: Computed tomography (CT) of the head was performed without intravenous contrast. The mA wa s adjusted according to patient size. Iterative reconstruction technique was employed. The dose-lengt h product was 605.33 mGy-cm. COMPARISON: None FINDINGS: There are scattered areas of low attenuation in the cerebral white matter, which is within normal limits for the patient's age. There is no intracranial hemorrhage, acute infarction, or abnorm al intracranial mass lesion. The ventricles are normal in size. There is left posterior scalp soft ti ssue swelling. There is mucosal thickening in the paranasal sinuses. There is sclerosis of the lucero of right sphenoid sinus, consistent with chronic sinusitis. The orbits are normal. The mastoid air ce lls are normal. IMPRESSION: 1. Normal aging brain. Reviewed, dictated and finalized at location A. LE CLEANER IMPRESSION: 1. Normal aging brain.
--- NOTE | ~2022-08-02 | XR_ITS ---
EXAMINATION: XR humerus RT INDICATION: Right arm pain TECHNIQUE: Two views of the right humerus are obtained. COMPARISON: None available FINDINGS: There is cranial migration of the humeral head with respect to the glenoid, suggestive of r otator cuff tear. There is moderate osteoarthritis of the acromioclavicular joint. There is remodelin g of the undersurface of the acromion related to impingement by the humeral head. No fracture is iden tified. The soft tissues are unremarkable. IMPRESSION: 1. No acute osseous abnormality. Probable chronic rotator cuff tear. Reviewed, dictated and finalized at location F. ING ASSOC
--- NOTE | ~2022-08-02 | US_ITS ---
EXAMINATION: US carotid duplex BI DATE: 08/03/2022 14:51 INDICATION: Syncope and collapse. TECHNIQUE: Grayscale, color Doppler, and pulsed Doppler images of the cervical carotid arteries were obtained. The degree of vessel stenosis is placed in one of the following categories: normal, <50%, 5 0-69%, >=70% but less than near-occlusion, near-occlusion, or total occlusion. Note that percent sten osis relative to normal distal artery lumen diameter is indirectly measured from velocity measurement s as described by Khalif, et al. Radiology 2003; 229:340-346. COMPARISON: None. FINDINGS: RIGHT: The right common carotid artery (CCA) peak systolic velocity (PSV) is 70 cm/s. The right internal car otid artery (ICA) PSV is 113 cm/s. The right ICA end-diastolic velocity (EDV) is 18 cm/s. The right I CA/CCA PSV ratio is 1.6. Grayscale and color Doppler images yield an estimate of <50% diameter reduct ion from plaque in the ICA. There is antegrade flow in the right vertebral artery. LEFT: The left CCA PSV is 51 cm/s. The left ICA PSV is 75 cm/s. The left ICA EDV is 18 cm/s. The left ICA/C CA PSV ratio is 1.5. Grayscale and color Doppler images yield an estimate of <50% diameter reduction from plaque in the ICA. There is antegrade flow in the left vertebral artery. IMPRESSION: 1. <50% stenosis in the right internal carotid artery. 2. <50% stenosis in the left internal carotid artery. Reviewed, dictated and finalized at location A. LING MACHINE RUNNER
--- NOTE | ~2022-08-02 | XR_ITS ---
EXAMINATION: XR chest 2V 08/02/2022 11:42 INDICATION: Weakness. Dyspnea. PROCEDURE: 2 view chest COMPARISON: 05/09/2017 FINDINGS: The lungs are clear. The cardiomediastinal silhouette is within normal limits. There are no pleural effusions. There is no pneumothorax suspected. IMPRESSION: 1: NO ACUTE CARDIOPULMONARY DISEASE. Reviewed, dictated and finalized at location B. ABILITY TECHNOLOGIST
[2022-08-02 10:44] VITALS: BP 108/91; PULSE 100; RESP 15; TEMP 36.7; O2SAT 100
--- NOTE | 2022-08-02 10:48 | ECG_ITS ---
Measurements Intervals [place] Rate: 93 P: 3 AL: 162 QRS: -45 QRSD: 125 T: -9 QT: 348 QTc: 433 Interpretive Statements SINUS RHYTHM LEFT AXIS DEVIATION RIGHT BUNDLE BRANCH BLOCK INFERIOR INFARCT, AGE INDETERMINATE ABNORMAL ECG COMPARED TO ECG 05/06/2022 10:48:56 NO SIGNIFICANT CHANGES Electronically Signed On 08-02-2022 11:13:36 ESCALATOR SERVICE MECHANIC by Beka Esquivel D.O.
[2022-08-02 11:17] LABS: Basophils Percent Auto 0.2 % (0.2-1.2); Eosinophils Percent Auto 0.3 % (0-4.4); Hematocrit 37.7 % (37.0-47.0); Hemoglobin 12.3 g/dL (12.0-15.0); Immature Granulocyte Absolute 0.06 K/mm3 (0.00-0.031); Immature Granulocyte Percent A 0.6 % (0-0.5); Lymphocytes Absolute Auto 0.98 K/mm3 (0.9-3.2); Mean Corpuscular HGB Conc 32.6 g/dl (32-36); Mean Corpuscular Hemoglobin 31.6 pg (26-34); Mean Corpuscular Volume 96.9 fl (80-100); Mean Platelet Volume 9.9 fl (7.4-10.4); Monocytes Absolute Auto 0.6 K/mm3 (0.1-0.6); Monocytes Percent Auto 5.8 % (2.6-8.5); Neutrophils Absolute Auto 8.1 K/mm3 (1.3-6.7); Neutrophils Percent Auto 83.1 % (45.5-73.1); Platelet Count Result 371 k/mm3 (150-375); Red Blood Count 3.89 M/mm3 (4.2-5.4); Red Cell Distribution Width 13.1 % (11.5-14.5); White Blood Count 9.8 K/mm3 (4.5-10.0)
[2022-08-02 11:22] LABS: Alanine Aminotransferase 27 U/L (6-35); Albumin Level 4.6 g/dL (3.5-5.1); Alkaline Phosphatase 88 U/L (38-126); Anion Gap 6 mmol/L (8-16); Aspartate Amino Transferase 40 U/L (14-36); Bilirubin,Total 1.1 mg/dL (0.2-1.3); Blood Urea Nitrogen 17 mg/dL (7-17); Calcium 9.6 mg/dL (8.4-10.2); Carbon Dioxide 27 mmol/L (22-30); Chloride 95 mmol/L (98-107); Estimated CRCL calculation 34 ml/min; Estimated Glomerular Filt Rate 54; Glucose 140 mg/dL (65-110); Potassium 4.3 mmol/L (3.4-5.0); Sodium 128 mmol/L (137-145)
[2022-08-02 11:26] LABS: Appearance Urine Clear (Clear); Bilirubin Urine Negative (Negative); Blood Urine Trace-intact (Negative); Color Urine Yellow (Yellow); Glucose Urine UA Negative (Negative); Ketones Urine Negative (Negative); Leukocyte Esterase Ur Negative LEU/UL (Negative); Nitrate Urine Negative (Negative); Protein Urine Negative (Negative); Specific Grav Ur 1.015 (1.001-1.035); Urobilinogen Urine 0.2 mg/dL (<2.0)
[2022-08-02 11:32] LABS: Bacteria Urine None Seen /hpf; Non Pathogenic Casts 0-2; Squamous Epithelial Cell Urine None seen /hpf (Few); WBC Urine 0-5 /hpf
[2022-08-02 11:34] LABS: Add Urine Microscopic? YES
--- NOTE | 2022-08-02 12:15 | ED.WEAKNESS ---
HPI - Weakness General Chief complaint: Weakness Stated complaint: WEAKNESS,NEAR SYNCOPE Time Seen by Provider: 08/02/22 12:07 History of Present Illness HPI Narrative: Patient is a 76-year-old female with a history of hypothyroidism, hypertension, hyperlipidemia presenting with generalized weakness. Patient lives alone. Her neighbor is at bedside and helps with the history. Sounds like she has been having multiple falls over the last week or 2. Today she did not show up to [employer] as expected so her neighbor went to check on her and found her on the ground by her bed. The patient was too weak to get into bed so they called EMS. Patient states that she has not been eating or drinking much due to poor appetite. States her PCP has tried to get her to drink 2 boosts per day. She denies any pain. No fevers or chills, headache, numbness or weakness, chest pain, shortness of breath, cough, abdominal pain, vomiting, diarrhea, dysuria, leg swelling. Related Data Home Medications Medication Instructions Recorded Confirmed hixnyuojxih-[id number]-C-Mn-boron 1 tablet PO BID 03/19/19 07/23/22 750 mg-600 mg-30 mg-1mg-1.5mg tablet iron polysaccharide complex-iron 1 tablet PO BID 03/19/19 07/23/22 heme polypeptide 28 mg tablet lutein 25 mg-zeaxanthin 5 mg 1 cap PO DAILY 03/19/19 07/23/22 capsule multivitamin 1 tablet PO DAILY 03/19/19 07/23/22 mecobalamin (vitamin B12) 1,000 1,000 mcg sublingual DAILY 06/29/19 07/23/22 mcg disintegrating tablet,sublingual omega-3 fatty acids 1,000 mg 1,000 mg PO DAILY 03/08/20 07/23/22 capsule (Fish Oil Concentrate) niacin 500 mg tablet,extended 500 mg PO QAM 09/01/20 07/23/22 release (Slo-Niacin) fluticasone propionate 50 2 spray intranasal DAILY 01/16/22 07/23/22 mcg/actuation nasal spray,suspension biotin 5,000 mcg disintegrating 5,000 mcg PO DAILY 05/02/22 07/23/22 tablet folic acid 1 mg tablet 1 mcg PO DAILY 05/02/22 08/02/22 lisinopril 20 mg tablet 20 mg PO QAM 05/02/22 08/02/22 Allergies Allergy/AdvReac Type Severity Reaction Status Date / Time Sulfa (Sulfonamide Allergy Unknown Unknown Verified 08/02/22 15:07 Antibiotics) Review of Systems Review of Systems: All systems reviewed & are unremarkable except as noted in HPI and below PMFSH Past Medical History Medical History Abnormal EKG Abnormal finding of blood chemistry, unspecified Acute maxillary sinusitis Anemia of chronic renal failure, stage 4 (severe) Benign essential hypertension BMI 21.0-21.9, adult BMI 23.0-23.9, adult BMI 24.0-24.9, adult BMI 25.0-25.9,adult Cellulitis of sidewall of nose Chronic sinusitis CKD (chronic kidney disease) Clogged ear JUAREZ (dyspnea on exertion) Elevated glucose Elevated serum protein level Encounter for Medicare annual wellness exam Encounter for preventive health examination Encounter for routine adult health examination without abnormal findings Fever and chills FHx: diabetes mellitus GERD (gastroesophageal reflux disease) Hearing loss Hospital discharge follow-up Hyperlipidemia Hypertension Hypothyroidism (acquired) Impaired glucose tolerance (oral) Intestinal malabsorption Iron deficiency anemia Need for shingles vaccine On preflight 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
[2022-08-02] MEDS: SODIUM CHLORIDE 0.9% IV 1,000 ML 999 ML IV CONT (12:54)
[2022-08-02 12:58] VITALS: PULSE 82
[2022-08-02 13:31] LABS: Creatine Kinase 124 U/L (30-135)
--- NOTE | 2022-08-02 15:12 | ADMGEN ---
This patient, Renay Collado, was admitted to [facility] Surg Room 322-01. Patient/family oriented to hospital policies and general routines including ID bracelet, bed and alarms, visiting hours, pain management, procedures, bathroom and other care routines, personal items, smoking policy, room service/diet, and visiting hours. Information on how to activate the Rapid Response Team has been discussed. Patient/Family are encouraged to report perceived risks to care and to ask questions if they do not understand what they are told or what they should do.
[2022-08-02 15:15] VITALS: BMI 20.1
--- NOTE | 2022-08-02 15:22 | PC.NURSE ---
Patient states that her POA paperwork is at a lock box at a bank. Patient gave verbal consent to share medical information with her friend that is with her. Patient is A & O x2. Will call pharmacy to get med list.
--- NOTE | 2022-08-02 15:43 | PCDIET ---
Brief nutrition note: Screened for MST 4. Per review of EMR pt lost -11 lb/6 months, 9%/6 months weight loss. Not quite meeting criteria for malnutrition. Ordering Ensure Enlive TID. Pt is still in the process of being admitted. Further assessment to follow. Jessica Arias RD LDN
[2022-08-02 19:47] VITALS: BP 146/66; PULSE 80; RESP 16; TEMP 36.7; O2SAT 100
--- NOTE | 2022-08-02 20:52 | PM.IMHP ---
H&P: HPI History of Present Illness Date/Time: 08/02/22 20:52 Chief Complaint: weakness Narrative: this is a 76-year-old female patient who resides home alone. She has a history of hypothyroidism, hypertension and hyperlipidemia. The patient came to the emergency room complaining of generalized weakness. The patient has been having multiple falls over the last week or 2. 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 Her neighbor went to check on her and found her on the ground by her bed. The patient had been too weak to call EMS herself. The patient stated she is not having much appetite and has not been eating or drinking very well. Her primary care doctor told her to drink 2 beers per day. Patient has no discomfort. She has no fever chills. Her head CT shows normal aging brain. Chest x-ray shows no acute cardiopulmonary disease. Her white count is normal. Her sodium is 123. She is not on any diuretics however the patient has decreased appetite. The patient is being admitted to observation status on the date of service of 08/02/2022 Review of Systems Review of Systems: see HPI All systems reviewed & are unremarkable except as noted in HPI and below Constitutional: Constitutional: Reports as per HPI and Reports no additional constitutional complaints Eyes: Eyes: Reports as per HPI and Reports no additional eye complaints ENT: Reports system reviewed and no additional complaints, except as documented and Reports Normal hearing present Cardiovascular: Cardiovascular: Reports no additional cardiovascular complaints Respiratory: Respiratory: Reports no additional respiratory complaints and Reports no additional respiratory complaints Gastrointestinal: Gastrointestinal: Reports as per HPI and Reports no additional gastrointestinal complaints Musculoskeletal: Musculoskeletal: Reports no additional musculoskeletal complaints Integumentary/Breasts: Skin/Breast: Reports system reviewed and no additional complaints, except as docu and Reports as per HPI Neurologic: Reports system reviewed and no additional complaints, except as documented, Reports as per HPI and Reports Normal hearing present Psychiatric: Psychiatric: Reports no additional psychiatric complaints and Reports as per HPI Endocrine: Endocrine: Reports no additional endocrine complaints Hematologic/Lymphatic: Hematologic/Lymphatic: Reports no additional hematologic/lymphatic complaints Allergic/Immunologic: Allergic/Immunologic: Reports no additional allergic/immunologic complaints PMFSH Past Medical History Medical History Abnormal EKG Abnormal finding of blood chemistry, unspecified Acute maxillary sinusitis Anemia of chronic renal failure, stage 4 (severe) Benign essential hypertension BMI 21.0-21.9, adult BMI 23.0-23.9, adult BMI 24.0-24.9, adult BMI 25.0-25.9,adult Cellulitis of sidewall of nose Chronic sinusitis CKD (chronic kidney disease) Clogged ear JUAREZ (dyspnea on exertion) Elevated glucose Elevated serum protein level Encounter for Medicare annual wellness exam Encounter for preventive health examination Encounter for routine adult health examination without abnormal findings Fever and chills FHx: diabetes mellitus GERD (gastroesophageal reflux disease) Hearing loss Hospital discharge follow-up Hyperlipidemia Hypertension Hypothyroidism (acquired) Impaired glucose tolerance (oral) Intestinal malabsorption Iron deficiency anemia Need for shingles vaccine On manager terminal drug therapy Persistent cough RBBB (right bundle branch block) Reactive airway disease Seasonal allergies Sinus pain SOB (shortness of breath) Unintentional weight loss Unintentional weight loss Surgical History Surgical History History of hysteroscopy 05/27/03 hscope d&c/polypectomy--postmenopausal bleeding
--- NOTE | 2022-08-03 | ECHO_ITS ---
Patient Info Name: Renay Collado Age: 76 years : 1945 Gender: Female Ht: 62 in Wt: 110 lbs BSA: 1.48 m2 HR: 75 bpm BP: 111 / 46 mmHg Technical Quality: Fair Exam Date: 08/03/2022 1:04 PM Exam Location: [facility] Patient Status: Inpatient Admit Date: 08/02/2022 Staff Ordering Physician: Callie Hopkins PA-C Personal Financial Representative: Lilia Asher RDCS Attending Provider: Babs Guerra MD Referring Physician: Sandeep ZAIDI; Exam Type: CA echo dop bubble study w con Study Info Complete two-dimentional, color flow and Doppler transthoracic echocardiogram is performed with agitated saline and with contrast to opacify the left ventricle and to improve the delineation of the left ventricle endocardial borders. Complete two-dimensional, color flow and Doppler transthoracic echocardiogram is performed with agitated saline. Contrast/Agitated Saline Contrast/Ag. Saline: Agitated Saline Amount: 4.00 ml Amount: 10.00 ml Summary 1. Left ventricular chamber dimension is normal. 2. Definity contrast administered improved wall motion interpretation. 3. Left ventricular systolic function is mildly reduced, estimated at 45-50%. 4. The left ventricular diastolic function is grade I diastolic dysfunction. 5. E/e' 10 is mildly elevated. 6. There is mild aortic valve sclerosis. 7. There is mild to moderate aortic valve regurgitation. 8. The mitral valve has mildly calcified annulus. 9. No pulmonary hypertension, estimated pulmonary arterial systolic pressure is 15 mmHg. 10. There is mild pulmonic regurgitation. Left Ventricle Definity contrast administered improved wall motion interpretation. E/e' 10 is mildly elevated. Left ventricular chamber dimension is normal. Left ventricular systolic function is mildly reduced, estimated at 45-50%. The left ventricular diastolic function is grade I diastolic dysfunction. Right Ventricle Right ventricular chamber dimension is normal. Right ventricular systolic function is normal. Left Atria Left atrial chamber dimension is normal. Right Atria Right atrial chamber dimension is normal. Atrial Septum Agitated saline injection with and without valsalva maneuver opacified right side cardiac chambers without shunt to left side cardiac chambers. Intact interatrial septum visualized by 2D and agitated saline imaging. Aortic Valve The aortic valve is trileaflet. There is mild aortic valve sclerosis. There is no aortic valve stenosis. There is mild to moderate aortic valve regurgitation. Pulmonic Valve There is mild pulmonic regurgitation. Mitral Valve The mitral valve has mildly calcified annulus. There is no mitral valve stenosis. There is no mitral valve regurgitation. Tricuspid Valve There is no tricuspid valve regurgitation. No pulmonary hypertension, estimated pulmonary arterial systolic pressure is 15 mmHg. Pericardium/Pleural There is no pericardial effusion. Inferior Vena Cava Normal inferior vena cava with >50% collapse upon inspiration consistent with normal right atrial pressure, 5 mmHg. Aorta The aortic root size at the sinus of Valsalva is normal. Left Ventricular Outflow Tract Name Value Normal LVOT 2D
[2022-08-03] MEDS: SODIUM CHLORIDE 0.9% IV 1,000 ML 100 ML IV CONT ×3 (01:31→22:46)
[2022-08-03 02:49] LABS: Anion Gap 9 mmol/L (8-16); Blood Urea Nitrogen 12 mg/dL (7-17); Calcium 9.1 mg/dL (8.4-10.2); Carbon Dioxide 23 mmol/L (22-30); Chloride 97 mmol/L (98-107); Estimated CRCL calculation 38 ml/min; Estimated Glomerular Filt Rate > 60; Glucose 85 mg/dL (65-110); Sodium 129 mmol/L (137-145)
[2022-08-03 06:00] VITALS: BP 111/46; PULSE 97; RESP 20; TEMP 35.8; O2SAT 98
[2022-08-03] MEDS: LEVOTHYROXINE SODIUM 50 MCG TABLET BY MOUTH (06:14)
[2022-08-03 07:08] LABS: Basophils Percent Auto 0.3 % (0.2-1.2); Eosinophils Absolute Auto 0.1 K/mm3 (0-0.3); Eosinophils Percent Auto 1.4 % (0-4.4); Hematocrit 32.3 % (37.0-47.0); Hemoglobin 10.4 g/dL (12.0-15.0); Immature Granulocyte Absolute 0.05 K/mm3 (0.00-0.031); Immature Granulocyte Percent A 0.7 % (0-0.5); Lymphocytes Absolute Auto 1.18 K/mm3 (0.9-3.2); Lymphocytes Percent Auto 16.6 % (18.3-44.2); Mean Corpuscular HGB Conc 32.2 g/dl (32-36); Mean Corpuscular Hemoglobin 31.5 pg (26-34); Mean Corpuscular Volume 97.9 fl (80-100); Mean Platelet Volume 10.1 fl (7.4-10.4); Monocytes Absolute Auto 0.5 K/mm3 (0.1-0.6); Monocytes Percent Auto 7.5 % (2.6-8.5); Neutrophils Absolute Auto 5.2 K/mm3 (1.3-6.7); Neutrophils Percent Auto 73.5 % (45.5-73.1); Platelet Count Result 282 k/mm3 (150-375); Red Cell Distribution Width 13.1 % (11.5-14.5); White Blood Count 7.1 K/mm3 (4.5-10.0)
[2022-08-03 07:22] LABS: Lactic Acid Reflex 0.9 mmol/L (0.7-2.0)
[2022-08-03 07:25] LABS: Alanine Aminotransferase 21 U/L (6-35); Albumin Level 3.7 g/dL (3.5-5.1); Alkaline Phosphatase 71 U/L (38-126); Anion Gap 6 mmol/L (8-16); Aspartate Amino Transferase 34 U/L (14-36); Bilirubin,Total 1.1 mg/dL (0.2-1.3); Blood Urea Nitrogen 11 mg/dL (7-17); Calcium 8.7 mg/dL (8.4-10.2); Carbon Dioxide 22 mmol/L (22-30); Chloride 99 mmol/L (98-107); Estimated CRCL calculation 42 ml/min; Estimated Glomerular Filt Rate > 60; Glucose 83 mg/dL (65-110); Lipase 147 U/L (23-300); Magnesium 1.8 mg/dL (1.6-2.3); Potassium 4.2 mmol/L (3.4-5.0); Sodium 127 mmol/L (137-145)
[2022-08-03 08:59] LABS: Thyroid Stimulating Hormone Reflex 0.138 uIU/mL (0.465-4.68)
[2022-08-03] MEDS: lisinopriL 20 MG TABLET PO (09:38)
[2022-08-03] MEDS: PANTOPRAZOLE SODIUM IV 40 MG VIAL IV PUSH ×2 (09:38→20:40)
[2022-08-03 10:17] LABS: Creatine Kinase 206 U/L (30-135)
[2022-08-03 11:17] LABS: Iron 32 ug/dL (37-170)
[2022-08-03 11:27] LABS: Percent Iron Saturation 17 % (20-50)
[2022-08-03 12:05] LABS: Transferrin 127 mg/dL (206-381)
[2022-08-03 12:07] LABS: Free T4 Free Thyroxine Reflex 0.68 ng/dL (0.78-2.19)
[2022-08-03 13:02] LABS: Folic Acid > 20.0 ng/mL (2.76->20)
[2022-08-03] MEDS: PERFLUTREN LIPID MICROSPHERES 1.5 ML VIAL DILUTED TO 10 ML TOTAL VOLUME IV PUSH (13:04)
[2022-08-03 14:00] VITALS: BP 119/66; BP 119/70; BP 138/65; PULSE 75; RESP 18; TEMP 36.6; O2SAT 99
--- NOTE | 2022-08-03 14:18 | P.PNIM_ITS ---
Progress Note: A&P Assessment and Plan (1) Delirium: Code(s): R41.0 - Disorientation, unspecified Status: Acute Assessment and Plan: Patient presented to ED on 08/02/2022 with complaints of generalized weakness. Patient has a multiple falls over the last week or 2. When seeing patient patient was alert oriented to self, situation and place but unable to answer the year. Patient cannot recall the events leading up to the fall she was only able to state that her neighbor found her on the ground. It was difficult to decipher what the patient actually new verses what she has been told by [employer] friends. * CT head negative for acute intracranial process * CT abdomen pelvis normal * UA revealed no acute infection * B12 and folate normal * Patient does have anemia and given ferrous sulfate b.i.d. * MRI Ordered * Echocardiogram ordered * Ammonia level, CRP, ESR, tox screen and vitamin-D ordered (2) Dehydration: Code(s): E86.0 - Dehydration Status: Acute Assessment and Plan: Patient found to have a sodium of 128 in the ED. * The patient has had a poor oral intake with early satiety, possible malnutrition and weight loss. * Dietary supplements have been ordered * Dietary consulted * Patient receiving IV fluids (3) Hyponatremia: Code(s): E87.1 - Hypo-osmolality and hyponatremia Status: Acute Assessment and Plan: * Continue to gently hydrate. Continue to monitor sodium. * Urine osmolality and urine sodium (4) Falls: Code(s): W19.XXXA - Unspecified fall, initial encounter Status: Acute Assessment and Plan: * PT OT evaluation * May be related to her hyponatremia and weight loss. She is also dehydrated in frail * severity of illness coordinator has been consulted for possible rehab (5) Unintentional weight loss: Code(s): R63.4 - Abnormal weight loss Status: Acute Assessment and Plan: * The patient will need nutritional supplement. * CT of the abdomen has been ordered. Patient has no complaints of any discomfort but is very frail and has poor oral intake. * Dietary seeing patient. (6) Gastroesophageal reflux disease without esophagitis: Code(s): K21.9 - Gastro-esophageal reflux disease without esophagitis Status: Acute Assessment and Plan: Protonix IV (7) CKD (chronic kidney disease): Qualifiers: Chronic kidney disease stage: stage 2 (mild) Qualified Code(s): N18.2 - Chronic kidney disease, stage 2 (mild) Code(s): N18.9 - Chronic kidney disease, unspecified Status: Acute Assessment and Plan: She has had a baseline (8) Thyroid disorder: Code(s): E07.9 - Disorder of thyroid, unspecified Status: Acute Assessment and Plan: Continue with Synthroid Check thyroid level (9) Benign essential hypertension: Code(s): I10 - Essential (primary) hypertension Status: Acute Assessment and Plan: Continue lisinopril Subjective Date/time seen: 08/03/22 14:18 Interval history: Patient in chair with taoist friends around her. Patient gave permission to call talk freely in front of her friends. She is alert to person, place and situation but unable to answer the year or president. patient unable to tell me why she had fallen. Patient st
--- NOTE | 2022-08-03 14:18 | PM.IMPN ---
Progress Note: A&P Assessment and Plan (1) Delirium: Code(s): R41.0 - Disorientation, unspecified Status: Acute Assessment and Plan: Patient presented to ED on 08/02/2022 with complaints of generalized weakness. Patient has a multiple falls over the last week or 2. When seeing patient patient was alert oriented to self, situation and place but unable to answer the year. Patient cannot recall the events leading up to the fall she was only able to state that her neighbor found her on the ground. It was difficult to decipher what the patient actually new verses what she has been told by [employer] friends. CT head negative for acute intracranial process CT abdomen pelvis normal UA revealed no acute infection B12 and folate normal Patient does have anemia and given ferrous sulfate b.i.d. MRI Ordered Echocardiogram ordered Ammonia level, CRP, ESR, tox screen and vitamin-D ordered (2) Dehydration: Code(s): E86.0 - Dehydration Status: Acute Assessment and Plan: Patient found to have a sodium of 128 in the ED. The patient has had a poor oral intake with early satiety, possible malnutrition and weight loss. Dietary supplements have been ordered Dietary consulted Patient receiving IV fluids (3) Hyponatremia: Code(s): E87.1 - Hypo-osmolality and hyponatremia Status: Acute Assessment and Plan: Continue to gently hydrate. Continue to monitor sodium. Urine osmolality and urine sodium (4) Falls: Code(s): W19.XXXA - Unspecified fall, initial encounter Status: Acute Assessment and Plan: PT OT evaluation May be related to her hyponatremia and weight loss. She is also dehydrated in frail tutor coordinator has been consulted for possible rehab (5) Unintentional weight loss: Code(s): R63.4 - Abnormal weight loss Status: Acute Assessment and Plan: The patient will need nutritional supplement. CT of the abdomen has been ordered. Patient has no complaints of any discomfort but is very frail and has poor oral intake. Dietary seeing patient. (6) Gastroesophageal reflux disease without esophagitis: Code(s): K21.9 - Gastro-esophageal reflux disease without esophagitis Status: Acute Assessment and Plan: Protonix IV (7) CKD (chronic kidney disease): Qualifiers: Chronic kidney disease stage: stage 2 (mild) Qualified Code(s): N18.2 - Chronic kidney disease, stage 2 (mild) Code(s): N18.9 - Chronic kidney disease, unspecified Status: Acute Assessment and Plan: She has had a baseline (8) Thyroid disorder: Code(s): E07.9 - Disorder of thyroid, unspecified Status: Acute Assessment and Plan: Continue with Synthroid Check thyroid level (9) Benign essential hypertension: Code(s): I10 - Essential (primary) hypertension Status: Acute Assessment and Plan: Continue lisinopril Subjective Date/time seen: 08/03/22 14:18 Interval history: Patient in chair with adventism friends around her. Patient gave permission to call talk freely in front of her friends. She is alert to person, place and situation but unable to answer the year or president. patient unable to tell me why she had fallen. Patient states that she has been more fatigued and weak over past 3 months with a unintentional weight loss. Along with unintentional weight loss patient has early satiety. Patient having difficulty recalling certain things such as who is her power of personal injury attorney. She denies headache, dizziness, chest pain, shortness a breath, fever, chills, body aches, nausea, vomiting and diarrhea. Review of Systems Review of Systems: All systems reviewed & are unremarkable except as noted in HPI and below Exam Narrative: GENERAL: Comfortable, no acute distress HENMT: moist mucous m
[2022-08-03 16:31] LABS: Ammonia < 9 umol/L (9-30)
[2022-08-03 16:44] LABS: CRP 14.3 mg/dL (<1.0)
[2022-08-03 16:47] LABS: Vitamin D 25 Hydroxy 46.7 ng/mL
[2022-08-03 16:50] LABS: Erythrocyte Sedimentation Rate 138 mm/hr (0-20)
[2022-08-03] MEDS: FERROUS SULFATE 324 MG TABLET PO (16:56)
[2022-08-03 18:20] LABS: Lactate Dehydrogenase 204 U/L (120-246)
[2022-08-03 18:23] LABS: Rheumatoid Factor 12.4 IU/ML (<12)
[2022-08-03 20:00] VITALS: BP 119/66; PULSE 75; RESP 18; TEMP 36.6; O2SAT 99
[2022-08-03 21:33] VITALS: BP 111/68; PULSE 69; RESP 20; TEMP 36.1; O2SAT 99
[2022-08-03 21:35] VITALS: BP 103/54; BP 105/57; PULSE 75; PULSE 79; RESP 20; O2SAT 100
[2022-08-03 22:00] VITALS: BP 111/68; PULSE 69; RESP 20; TEMP 36.1; O2SAT 99
[2022-08-04] VITALS (9 sets, daily range): BP systolic 109–143; BP diastolic 43–75; PULSE 59–81; RESP 14–18; TEMP 35.8–36.6; O2SAT 100
[2022-08-04] MEDS: LEVOTHYROXINE SODIUM 50 MCG TABLET BY MOUTH (05:42)
[2022-08-04 06:16] LABS: Basophils Percent Auto 0.2 % (0.2-1.2); Eosinophils Absolute Auto 0.2 K/mm3 (0-0.3); Eosinophils Percent Auto 2.9 % (0-4.4); Hematocrit 28.4 % (37.0-47.0); Hemoglobin 9.1 g/dL (12.0-15.0); Immature Granulocyte Absolute 0.03 K/mm3 (0.00-0.031); Immature Granulocyte Percent A 0.6 % (0-0.5); Lymphocytes Absolute Auto 0.81 K/mm3 (0.9-3.2); Lymphocytes Percent Auto 15.6 % (18.3-44.2); Mean Corpuscular Hemoglobin 31.8 pg (26-34); Mean Corpuscular Volume 99.3 fl (80-100); Mean Platelet Volume 10.1 fl (7.4-10.4); Monocytes Absolute Auto 0.4 K/mm3 (0.1-0.6); Monocytes Percent Auto 6.9 % (2.6-8.5); Neutrophils Absolute Auto 3.8 K/mm3 (1.3-6.7); Neutrophils Percent Auto 73.8 % (45.5-73.1); Platelet Count Result 254 k/mm3 (150-375); Red Blood Count 2.86 M/mm3 (4.2-5.4); Red Cell Distribution Width 13.2 % (11.5-14.5); White Blood Count 5.2 K/mm3 (4.5-10.0)
[2022-08-04 06:29] LABS: Alanine Aminotransferase 18 U/L (6-35); Albumin Level 3.3 g/dL (3.5-5.1); Alkaline Phosphatase 56 U/L (38-126); Anion Gap 2 mmol/L (8-16); Aspartate Amino Transferase 27 U/L (14-36); Bilirubin,Total 0.8 mg/dL (0.2-1.3); Blood Urea Nitrogen 8 mg/dL (7-17); CRP 6.7 mg/dL (<1.0); Calcium 8.5 mg/dL (8.4-10.2); Carbon Dioxide 23 mmol/L (22-30); Chloride 108 mmol/L (98-107); Estimated CRCL calculation 38 ml/min; Estimated Glomerular Filt Rate > 60; Glucose 83 mg/dL (65-110); Potassium 4.3 mmol/L (3.4-5.0); Sodium 133 mmol/L (137-145)
[2022-08-04] MEDS: PANTOPRAZOLE SODIUM IV 40 MG VIAL IV PUSH ×2 (09:34→20:22)
[2022-08-04] MEDS: CYANOCOBALAMIN 1,000 MCG TABLET 1000 MCG PO (09:34)
[2022-08-04] MEDS: lisinopriL 20 MG TABLET PO (09:34)
[2022-08-04] MEDS: FERROUS SULFATE 324 MG TABLET PO ×2 (09:34→16:43)
[2022-08-04] MEDS: SODIUM CHLORIDE 0.9% IV 1,000 ML 100 ML IV CONT (09:37)
--- NOTE | 2022-08-04 14:26 | P.PNIM_ITS ---
Progress Note: A&P Assessment and Plan (1) Delirium: Code(s): R41.0 - Disorientation, unspecified Status: Acute Assessment and Plan: Patient presented to ED on 08/02/2022 with complaints of generalized weakness. Patient has a multiple falls over the last week or 2. When seeing patient patient was alert oriented to self, situation and place but unable to answer the year. Patient cannot recall the events leading up to the fall she was only able to state that her neighbor found her on the ground. It was difficult to decipher what the patient actually new verses what she has been told by Pent[employer] friends. * CT head negative for acute intracranial process * CT abdomen pelvis normal * UA revealed no acute infection * B12 and folate normal * Patient does have anemia and given ferrous sulfate b.i.d. * MRI suspicious for metastatic disease. There is a mass the in the 4th ventricle with differential of metastatic disease and hemangioblastoma. Mass involving the sella, suprasellar cistern and prepontine cistern with differential of metastatic disease, meningioma and pituitary macroadenoma. There was recommendation for CT chest to screen for primary malignancy. * CT Chest ordered. * Echocardiogram ordered * Ammonia level, tox screen and vitamin-D normal * ESR and CRP elevated. (2) Dehydration: Code(s): E86.0 - Dehydration Status: Acute Assessment and Plan: Patient found to have a sodium of 128 in the ED. * The patient has had a poor oral intake with early satiety, possible malnutrition and weight loss. * Dietary supplements have been ordered * Dietary consulted * Patient receiving IV fluids (3) Hyponatremia: Code(s): E87.1 - Hypo-osmolality and hyponatremia Status: Acute Assessment and Plan: * Continue to gently hydrate. Continue to monitor sodium. * Urine osmolality and urine sodium (4) Falls: Code(s): W19.XXXA - Unspecified fall, initial encounter Status: Acute Assessment and Plan: * PT OT evaluation * May be related to her hyponatremia and weight loss. She is also dehydrated in frail * mission coordinator has been consulted for possible rehab (5) Unintentional weight loss: Code(s): R63.4 - Abnormal weight loss Status: Acute Assessment and Plan: * The patient will need nutritional supplement. * CT of the abdomen has been ordered. Patient has no complaints of any discomfort but is very frail and has poor oral intake. * Dietary seeing patient. (6) Gastroesophageal reflux disease without esophagitis: Code(s): K21.9 - Gastro-esophageal reflux disease without esophagitis Status: Acute Assessment and Plan: Protonix IV (7) CKD (chronic kidney disease): Qualifiers: Chronic kidney disease stage: stage 2 (mild) Qualified Code(s): N18.2 - Chronic kidney disease, stage 2 (mild) Code(s): N18.9 - Chronic kidney disease, unspecified Status: Acute Assessment and Plan: She has had a baseline (8) Thyroid disorder: Code(s): E07.9 - Disorder of thyroid, unspecified Status: Acute Assessment and Plan: Continue with Synthroid Check thyroid level (9) Benign essential hypertension: Code(s): I10 - Essential (primary) hypertension Status: Acute Assessment and Plan: Continue l
--- NOTE | 2022-08-04 14:26 | PM.IMPN ---
Progress Note: A&P Assessment and Plan (1) Delirium: Code(s): R41.0 - Disorientation, unspecified Status: Acute Assessment and Plan: Patient presented to ED on 08/02/2022 with complaints of generalized weakness. Patient has a multiple falls over the last week or 2. When seeing patient patient was alert oriented to self, situation and place but unable to answer the year. Patient cannot recall the events leading up to the fall she was only able to state that her neighbor found her on the ground. It was difficult to decipher what the patient actually new verses what she has been told by [employer] friends. CT head negative for acute intracranial process CT abdomen pelvis normal UA revealed no acute infection B12 and folate normal Patient does have anemia and given ferrous sulfate b.i.d. MRI suspicious for metastatic disease. There is a mass the in the 4th ventricle with differential of metastatic disease and hemangioblastoma. Mass involving the sella, suprasellar cistern and prepontine cistern with differential of metastatic disease, meningioma and pituitary macroadenoma. There was recommendation for CT chest to screen for primary malignancy. CT Chest ordered. Echocardiogram ordered Ammonia level, tox screen and vitamin-D normal ESR and CRP elevated. (2) Dehydration: Code(s): E86.0 - Dehydration Status: Acute Assessment and Plan: Patient found to have a sodium of 128 in the ED. The patient has had a poor oral intake with early satiety, possible malnutrition and weight loss. Dietary supplements have been ordered Dietary consulted Patient receiving IV fluids (3) Hyponatremia: Code(s): E87.1 - Hypo-osmolality and hyponatremia Status: Acute Assessment and Plan: Continue to gently hydrate. Continue to monitor sodium. Urine osmolality and urine sodium (4) Falls: Code(s): W19.XXXA - Unspecified fall, initial encounter Status: Acute Assessment and Plan: PT OT evaluation May be related to her hyponatremia and weight loss. She is also dehydrated in frail nursing staffing coordinator has been consulted for possible rehab (5) Unintentional weight loss: Code(s): R63.4 - Abnormal weight loss Status: Acute Assessment and Plan: The patient will need nutritional supplement. CT of the abdomen has been ordered. Patient has no complaints of any discomfort but is very frail and has poor oral intake. Dietary seeing patient. (6) Gastroesophageal reflux disease without esophagitis: Code(s): K21.9 - Gastro-esophageal reflux disease without esophagitis Status: Acute Assessment and Plan: Protonix IV (7) CKD (chronic kidney disease): Qualifiers: Chronic kidney disease stage: stage 2 (mild) Qualified Code(s): N18.2 - Chronic kidney disease, stage 2 (mild) Code(s): N18.9 - Chronic kidney disease, unspecified Status: Acute Assessment and Plan: She has had a baseline (8) Thyroid disorder: Code(s): E07.9 - Disorder of thyroid, unspecified Status: Acute Assessment and Plan: Continue with Synthroid Check thyroid level (9) Benign essential hypertension: Code(s): I10 - Essential (primary) hypertension Status: Acute Assessment and Plan: Continue lisinopril Subjective Date/time seen: 08/04/22 14:26 Interval history: Patient sitting on side of the bed having lunch. I had had discussion with the patient today about having 2 different masses in her brain and we are unsure if they are primary or secondary cancer. Discussed with patient the importance of appointing a POA. Discussed code status with her and she does not wish to have lifesaving measures done to her and gave me permission to change her code status to DNR. Patient has had unintentional weight loss of 20 l
[2022-08-05 05:37] VITALS: BP 110/56; PULSE 67; RESP 18; TEMP 37.2; O2SAT 100
[2022-08-05] MEDS: LEVOTHYROXINE SODIUM 50 MCG TABLET BY MOUTH (06:07)
[2022-08-05 06:31] LABS: Basophils Percent Auto 0.3 % (0.2-1.2); Eosinophils Absolute Auto 0.2 K/mm3 (0-0.3); Eosinophils Percent Auto 3.2 % (0-4.4); Hematocrit 29.9 % (37.0-47.0); Hemoglobin 9.3 g/dL (12.0-15.0); Immature Granulocyte Absolute 0.03 K/mm3 (0.00-0.031); Immature Granulocyte Percent A 0.5 % (0-0.5); Lymphocytes Absolute Auto 1.37 K/mm3 (0.9-3.2); Mean Corpuscular HGB Conc 31.1 g/dl (32-36); Mean Corpuscular Hemoglobin 31.5 pg (26-34); Mean Corpuscular Volume 101.4 fl (80-100); Mean Platelet Volume 10.1 fl (7.4-10.4); Monocytes Absolute Auto 0.5 K/mm3 (0.1-0.6); Monocytes Percent Auto 8.4 % (2.6-8.5); Neutrophils Absolute Auto 3.8 K/mm3 (1.3-6.7); Neutrophils Percent Auto 64.6 % (45.5-73.1); Platelet Count Result 263 k/mm3 (150-375); Red Blood Count 2.95 M/mm3 (4.2-5.4); Red Cell Distribution Width 13.5 % (11.5-14.5)
[2022-08-05 06:47] LABS: Alanine Aminotransferase 19 U/L (6-35); Albumin Level 3.4 g/dL (3.5-5.1); Alkaline Phosphatase 58 U/L (38-126); Anion Gap 4 mmol/L (8-16); Aspartate Amino Transferase 27 U/L (14-36); Bilirubin,Total 0.6 mg/dL (0.2-1.3); Blood Urea Nitrogen 7 mg/dL (7-17); Carbon Dioxide 24 mmol/L (22-30); Chloride 106 mmol/L (98-107); Estimated CRCL calculation 38 ml/min; Estimated Glomerular Filt Rate > 60; Glucose 78 mg/dL (65-110); Potassium 4.1 mmol/L (3.4-5.0); Sodium 134 mmol/L (137-145)
[2022-08-05] MEDS: lisinopriL 20 MG TABLET PO (09:35)
[2022-08-05] MEDS: CYANOCOBALAMIN 1,000 MCG TABLET 1000 MCG PO (09:35)
[2022-08-05] MEDS: PANTOPRAZOLE SODIUM IV 40 MG VIAL IV PUSH ×2 (09:35→21:33)
[2022-08-05] MEDS: FERROUS SULFATE 324 MG TABLET PO ×2 (09:35→18:16)
--- NOTE | 2022-08-05 12:54 | PDONCCN ---
HPI - Date of Consult Date/Time: 08/05/22 12:54 Requesting Physician: Babs Guerra MD Primary Care Provider: Juan Adamosn MD - Consult Narrative Reason for consult: Brain mass Narrative: Renay Collado is a 76 year old female with history of anemia chronic kidney disease, hypothyroidism, hypertension and hyperlipidemia came into the ER with generalized weakness. Patient had recent recurrent falls. She denies any previous history of malignancy. Denies any history of smoking. There is a family history of colon cancer in the grandparents. Patient was last seen in the office on July 02 for anemia of chronic kidney disease. Patient had brain MRI done on August 02 that showed enhancing mass in the 4th ventricle and differential diagnosis include metastatic disease and hemangioblastoma. There was a mass involving the sella, suprasellar cistern and prepontine cistern. Differential diagnosis include metastatic disease, meningioma and pituitary macroadenoma. CT chest showed no evidence of malignancy. CT abdomen and pelvis also showed no evidence of malignancy other than left inguinal hernia and cholelithiasis without acute cholecystitis. She denies any recent weight loss. There is no history of smoking. Her last colonoscopy was almost 10 years ago. She denies any melena hematochezia. Review of Systems - Review of Systems All systems reviewed & are unremarkable except as noted in HPI and bel - Neurologic Reports system reviewed and no additional complaints, except as documented, Reports hearing normal [facility] Medical History: Medical History (Last Reviewed 08/03/22 @ 01:15 by Katheryn Corrales NP) Abnormal EKG Abnormal finding of blood chemistry, unspecified Acute maxillary sinusitis Anemia of chronic renal failure, stage 4 (severe) Benign essential hypertension BMI 21.0-21.9, adult BMI 23.0-23.9, adult BMI 24.0-24.9, adult BMI 25.0-25.9,adult Cellulitis of sidewall of nose Chronic sinusitis CKD (chronic kidney disease) Clogged ear JUAREZ (dyspnea on exertion) Elevated glucose Elevated serum protein level Encounter for Medicare annual wellness exam Encounter for preventive health examination Encounter for routine adult health examination without abnormal findings Fever and chills FHx: diabetes mellitus GERD (gastroesophageal reflux disease) Hearing loss Hospital discharge follow-up Hyperlipidemia Hypertension Hypothyroidism (acquired) Impaired glucose tolerance (oral) Intestinal malabsorption Iron deficiency anemia Need for shingles vaccine On fci drug therapy Persistent cough RBBB (right bundle branch block) Reactive airway disease Seasonal allergies Sinus pain SOB (shortness of breath) Unintentional weight loss Unintentional weight loss Surgical History: Surgical History (Last Reviewed 08/03/22 @ 01:15 by Katheryn Corrales NP) History of hysteroscopy 05/27/03 hscope d&c/polypectomy--postmenopausal bleeding-benign History of ovarian cystectomy 1991 History of tonsillectomy 1975 Status post anal fissurectomy 1973 Family History: Family History (Last Reviewed 08/03/22 @ 01:15 by Katheryn Corrales NP) Father Diabetes mellitus Family history of cardiovascular disease Family history of diabetes mellitus in first degree relative Family history of heart disease in male family member before age 55 Cancer Hypertension Cerebrovascular accident Mother Family history of Alzheimer's disease Diabetes mellitus Hypertension - Social History Social History: Social History (Last Updated 08/03/22 @ 01:16 by Katheryn Corrales NP) Gender Identity: Gender identity (if verbalized by the patient): Female Sexual Orientation: Sexual Orientation (if Verbalized by the Patient): Straight or Heterosexual Alcohol Use: Alcohol intake: never Substance Use: Substance use: never Substance use type: does not use Others: Spiritual care concerns
[2022-08-05 14:00] VITALS: BP 121/52; PULSE 81; RESP 16; TEMP 36.3; O2SAT 100
--- NOTE | 2022-08-05 14:19 | P.PNIM_ITS ---
Progress Note: A&P Assessment and Plan (1) Delirium: Code(s): R41.0 - Disorientation, unspecified Status: Acute Assessment and Plan: Patient presented to ED on 08/02/2022 with complaints of generalized weakness. Patient has a multiple falls over the last week or 2. When seeing patient patient was alert oriented to self, situation and place but unable to answer the year. Patient cannot recall the events leading up to the fall she was only able to state that her neighbor found her on the ground. It was difficult to decipher what the patient actually new verses what she has been told by Christian friends. * CT head negative for acute intracranial process * CT abdomen pelvis normal * UA revealed no acute infection * B12 and folate normal * Patient does have anemia and given ferrous sulfate b.i.d. * MRI suspicious for metastatic disease. There is a mass the in the 4th ventricle with differential of metastatic disease and hemangioblastoma. Mass involving the sella, suprasellar cistern and prepontine cistern with differential of metastatic disease, meningioma and pituitary macroadenoma. There was recommendation for CT chest to screen for primary malignancy. * CT Chest negative for acute process and malignancy * Echocardiogram with EF of 45-50%, mild valvular disease, no pulmonary hypertension, grade 1 diastolic dysfunction; EF is the same as it was in 2020 but valve disease and diastolic dysfunction are new. * Ammonia level, tox screen and vitamin-D normal * ESR and CRP elevated. Delirium most likely related to dehydration and fall likely related to brain mass. (2) Brain mass: Code(s): G93.89 - Other specified disorders of brain Status: Acute Assessment and Plan: Patient underwent MRI on 08/04/2022. MRI suspicious for metastatic disease. There is a mass the in the 4th ventricle with differential of metastatic disease and hemangioblastoma. Mass involving the sella, suprasellar cistern and prepontine cistern with differential of metastatic disease, meningioma and pituitary macroadenoma. There was recommendation for CT chest to screen for primary malignancy. * Patient with history of 20 lb unintentional weight loss in the past 3 months, progressive weakness, diplopia, and disequilibrium * CT chest negative for malignancy. * CT abdomen and pelvis no evidence of metastatic disease. * Oncology consulted and plans to follow patient in the office * Oncology recommended neuro surgery consultation for workup of possible biopsy. * Neurosurgery consulted (3) Dehydration: Code(s): E86.0 - Dehydration Status: Acute Assessment and Plan: Patient found to have a sodium of 128 in the ED. * The patient has had a poor oral intake with early satiety, possible malnutrit ion and weight loss. * Dietary supplements have been ordered * Dietary consulted * Patient receiving IV fluids (4) Hyponatremia: Code(s): E87.1 - Hypo-osmolality and hyponatremia Status: Acute Assessment and Plan: * Continue to gently hydrate. Continue to monitor sodium. * Urine osmolality and urine sodium (5) Falls: Code(s): W19.XXXA - Unspecified fall, initial encounter Status: Acute Assessment and Plan: * PT OT evaluation * May be related to her hyponatremia and weight loss. She is also dehydrated in frail * brand marketing coordinator has been consulted for possible rehab (6) Unintentional weight loss: Code(s): R63.4 - Abnormal
--- NOTE | 2022-08-05 14:19 | PM.IMPN ---
Progress Note: A&P Assessment and Plan (1) Delirium: Code(s): R41.0 - Disorientation, unspecified Status: Acute Assessment and Plan: Patient presented to ED on 08/02/2022 with complaints of generalized weakness. Patient has a multiple falls over the last week or 2. When seeing patient patient was alert oriented to self, situation and place but unable to answer the year. Patient cannot recall the events leading up to the fall she was only able to state that her neighbor found her on the ground. It was difficult to decipher what the patient actually new verses what she has been told by [employer] friends. CT head negative for acute intracranial process CT abdomen pelvis normal UA revealed no acute infection B12 and folate normal Patient does have anemia and given ferrous sulfate b.i.d. MRI suspicious for metastatic disease. There is a mass the in the 4th ventricle with differential of metastatic disease and hemangioblastoma. Mass involving the sella, suprasellar cistern and prepontine cistern with differential of metastatic disease, meningioma and pituitary macroadenoma. There was recommendation for CT chest to screen for primary malignancy. CT Chest negative for acute process and malignancy Echocardiogram with EF of 45-50%, mild valvular disease, no pulmonary hypertension, grade 1 diastolic dysfunction; EF is the same as it was in 2020 but valve disease and diastolic dysfunction are new. Ammonia level, tox screen and vitamin-D normal ESR and CRP elevated. Delirium most likely related to dehydration and fall likely related to brain mass. (2) Brain mass: Code(s): G93.89 - Other specified disorders of brain Status: Acute Assessment and Plan: Patient underwent MRI on 08/04/2022. MRI suspicious for metastatic disease. There is a mass the in the 4th ventricle with differential of metastatic disease and hemangioblastoma. Mass involving the sella, suprasellar cistern and prepontine cistern with differential of metastatic disease, meningioma and pituitary macroadenoma. There was recommendation for CT chest to screen for primary malignancy. Patient with history of 20 lb unintentional weight loss in the past 3 months, progressive weakness, diplopia, and disequilibrium CT chest negative for malignancy. CT abdomen and pelvis no evidence of metastatic disease. Oncology consulted and plans to follow patient in the office Oncology recommended neuro surgery consultation for workup of possible biopsy. Neurosurgery consulted (3) Dehydration: Code(s): E86.0 - Dehydration Status: Acute Assessment and Plan: Patient found to have a sodium of 128 in the ED. The patient has had a poor oral intake with early satiety, possible malnutrition and weight loss. Dietary supplements have been ordered Dietary consulted Patient receiving IV fluids (4) Hyponatremia: Code(s): E87.1 - Hypo-osmolality and hyponatremia Status: Acute Assessment and Plan: Continue to gently hydrate. Continue to monitor sodium. Urine osmolality and urine sodium (5) Falls: Code(s): W19.XXXA - Unspecified fall, initial encounter Status: Acute Assessment and Plan: PT OT evaluation May be related to her hyponatremia and weight loss. She is also dehydrated in frail faculty support coordinator has been consulted for possible rehab (6) Unintentional weight loss: Code(s): R63.4 - Abnormal weight loss Status: Acute Assessment and Plan: The patient will need nutritional supplement. CT of the abdomen has been ordered. Patient has no complaints of any discomfort but is very frail and has poor oral intake. Dietary seeing patient. (7) Gastroesophageal reflux disease without esophagitis: Code(s): K21.9 - Gastro-esophageal reflux disease without esophagitis Status: Acute Assessment and Plan
[2022-08-05 14:22] VITALS: BMI 20.1
--- NOTE | 2022-08-05 17:23 | PM.TDS ---
Transfer Discharge Sum: Prov Provider Date of admission: 08/02/22 12:25 Primary care physician: Juan Adamson MD Admitting clinician: Babs Guerra MD Attending physician on admission: Babs Guerra Consults: 08/03/22 Care Coordination Consult Routine Comment: Reason for Consult:: Acute Rehab Consult Consult to Dietitian Routine Reason for Consult:: weight loss 08/04/22 13:21 Consult to Physician Routine Comment: Spoke to 3..23 @1533---/us Consulting Provider: Davy Pruitt call center trainer/MD group to consult: Oncology Reason for consultation: 2 Brain masses Has provider been notified: Yes 08/05/22 14:20 Consult to Physician Routine Comment: Spoke w/office 08/05 [id number] (, [place]) Consulting Provider: Heidi Hawkins call center trainer/MD group to consult: neurosurgery Reason for consultation: Brain Mass Has provider been notified: Yes Attending physician on discharge: Inocencio Mcdaniels Discharging clinician: Callie Hopkins Anticipated date of transfer: 08/05/22 Receiving physician/facility: [facility] DS: Admitting Diagnosis Discharge Date 08/05/22 Admitting Diagnosis Weakness, fall DS: Discharge Diagnosis Discharge Diagnosis (1) Delirium: Code(s): R41.0 - Disorientation, unspecified Status: Acute Assessment and Plan: Patient presented to ED on 08/02/2022 with complaints of generalized weakness. Patient has a multiple falls over the last week or 2. When seeing patient patient was alert oriented to self, situation and place but unable to answer the year. Patient cannot recall the events leading up to the fall she was only able to state that her neighbor found her on the ground. It was difficult to decipher what the patient actually new verses what she has been told by Scientologist friends. CT head negative for acute intracranial process CT abdomen pelvis normal UA revealed no acute infection B12 and folate normal Patient does have anemia and given ferrous sulfate b.i.d. MRI suspicious for metastatic disease. There is a mass the in the 4th ventricle with differential of metastatic disease and hemangioblastoma. Mass involving the sella, suprasellar cistern and prepontine cistern with differential of metastatic disease, meningioma and pituitary macroadenoma. There was recommendation for CT chest to screen for primary malignancy. CT Chest negative for acute process and malignancy Echocardiogram with EF of 45-50%, mild valvular disease, no pulmonary hypertension, grade 1 diastolic dysfunction; EF is the same as it was in 2020 but valve disease and diastolic dysfunction are new. Ammonia level, tox screen and vitamin-D normal ESR and CRP elevated. Delirium most likely related to dehydration and fall likely related to brain mass. (2) Brain mass: Code(s): G93.89 - Other specified disorders of brain Status: Acute Assessment and Plan: Patient underwent MRI on 08/04/2022. MRI suspicious for metastatic disease. There is a mass the in the 4th ventricle with differential of metastatic disease and hemangioblastoma. Mass involving the sella, suprasellar cistern and prepontine cistern with differential of metastatic disease, meningioma and pituitary macroadenoma. There was recommendation for CT chest to screen for primary malignancy. Patient with history of 20 lb unintentional weight loss in the past 3 months, progressive weakness, diplopia, and disequilibrium CT chest negative for malignancy. CT abdomen and pelvis no evidence of metastatic disease. Oncology consulted and plans to follow patient in the office Oncology recommended neuro surgery consultation for workup of possible biopsy. Neurosurgery consulted And recommended patient be transferred due to the complexity of the case and inability to perform cranial procedures at [facility]. (3) Dehydration: Code(s): E86.0 - Dehydration Status: Acute Assessmen
[2022-08-05 20:00] VITALS: BP 115/76; PULSE 86; RESP 21; TEMP 36.3; O2SAT 100
[2022-08-05 20:05] VITALS: BP 162/71; PULSE 84; RESP 21; TEMP 36.4; O2SAT 100
[2022-08-05 20:10] VITALS: BP 164/70; PULSE 87; RESP 21; TEMP 36.2; O2SAT 100
[2022-08-05 20:43] VITALS: BP 115/76; PULSE 86; RESP 21; TEMP 36.3; O2SAT 100
[2022-08-07 14:14] LABS: Anti Nuclear Antibody Pattern Nuclear, Nucleolar
== END 2022-08-05 23:53 | disposition short-term general hospital (02) ==
LOC: ANHED 12:16 → ANH3MEDSUR 15:44
PROVIDERS: Emergency Medicine; Nurse Practitioner; Admitting Provider Hospitalist; Emergency Provider Emergency Medicine; PCP Internal Medicine; Visit Provider Internal Medicine Critical Care Medicine
DX: R41.0 Disorientation, unspecified (principal); G93.9 Disorder of brain, unspecified; E86.0 Dehydration; E87.1 Hypo-osmolality and hyponatremia; W19.XXXA Unspecified fall, initial encounter; R63.4 Abnormal weight loss; Z68.20 Body mass index [BMI] 20.0-20.9, adult; K21.9 Gastro-esophageal reflux disease without esophagitis; I12.9 Hypertensive chronic kidney disease with stage 1 through stage 4 chronic kidney disease, or unspecified chronic kidney disease; N18.4 Chronic kidney disease, stage 4 (severe); D63.1 Anemia in chronic kidney disease; E46 Unspecified protein-calorie malnutrition; E07.9 Disorder of thyroid, unspecified; R53.1 Weakness; R29.6 Repeated falls; R63.0 Anorexia; E03.9 Hypothyroidism, unspecified; J01.00 Acute maxillary sinusitis, unspecified; E78.5 Hyperlipidemia, unspecified; K80.20 Calculus of gallbladder without cholecystitis without obstruction; I08.3 Combined rheumatic disorders of mitral, aortic and tricuspid valves; R94.31 Abnormal electrocardiogram [ECG] [EKG]; H91.90 Unspecified hearing loss, unspecified ear; I45.10 Unspecified right bundle-branch block; J98.11 Atelectasis; K40.90 Unilateral inguinal hernia, without obstruction or gangrene, not specified as recurrent; Z79.899 Other long term (current) drug therapy; Z82.49 Family history of ischemic heart disease and other diseases of the circulatory system
CPT/HCPCS: 36415; 70450; 70551; 70553; 71046; 71260; 73060; 74177; 80048; 80053; 81001; 82140; 82306; 82533; 82550; 82607; 82728; 82746; 83540; 83550; 83605; 83615; 83690; 83735; 84439; 84443; 84466; 85025; 85652; 86038; 86039; 86140; 86430; 93005; 93880; 96360; 96361; 96374; 96375; 96376; 97116; 97161; 97165; 97530; 97535; 99285; A9270; A9577; C8929; C9113; G0378; J7030; Q9957; Q9967

== ENCOUNTER 2022-10-01 12:14 | Outpatient (CLI) | payer OTHER, SELFPAY ==
[2022-10-01 13:54] LABS: Free T4 Free Thyroxine 1.03 ng/mL (0.78-2.19)
== END 2022-10-01 12:15 | disposition home or self-care (01) ==
PROVIDERS: PCP Internal Medicine; Visit Provider Internal Medicine
DX: E07.9 Disorder of thyroid, unspecified (principal); E03.9 Hypothyroidism, unspecified
CPT/HCPCS: 36415; 84439; 84443

== ENCOUNTER 2023-04-07 05:54 | Observation (INO) | payer OTHER, SELFPAY ==
[2023-04-07] VITALS (24 sets, daily range): BP systolic 80–113; BP diastolic 42–67; PULSE 70–87; RESP 12–22; TEMP 36.6–37.1; O2SAT 91–100; BMI 19.5
--- NOTE | ~2023-04-07 | US_ITS ---
EXAMINATION: US renal BI DATE: 04/07/2023 20:53 INDICATION: acute kidney injury TECHNIQUE: Multiple grayscale and Doppler ultrasound images of the kidneys were obtained. COMPARISON: CT abdomen pelvis 08/03/2022 FINDINGS: The right kidney measures 8.0 x 3.8 x 3.6 cm. The left kidney measures 8.4 x 4.6 x 4.3 cm. The kidney s demonstrate normal parenchymal echogenicity. Bilateral simple cysts. There is no hydronephrosis. Th e bladder is decompressed by Olmedo catheter. IMPRESSION: Unremarkable renal sonogram findings. Reviewed, dictated and finalized at location [facility]
--- NOTE | ~2023-04-07 | XR_ITS ---
Clinical Indication: Weakness AP and lateral views of the chest: Comparison: 08/02/2022 Findings: The lungs are clear, without evidence of focal consolidation or pleural effusion. Cardiome diastinal silhouette is within normal limits. Bones and soft tissues are unremarkable. Impression: Normal chest. Reviewed, dictated and finalized at [facility]. RDS ASSISTANT Impression: Normal chest.
--- NOTE | ~2023-04-07 | CT_ITS ---
Non-contrast Head CT History: Weakness, mass COMPARISON: 08/02/2022 Technique: Axial non-contrast imaging of the brain was performed. Dose reduction technique was used on this scan by utilizing automated exposure control and iterative reconstruction technique. The dose -length product (DLP) was 605.33 mGy-cm. Findings: Probable small hyperdense mass present at the left cerebellopontine angle with extension to the fourth ventricle, similar appearance to prior exam. Probable streak artifact resulting in areas of hyperdensity in the superior frontal lobes. The ventricles and subarachnoid spaces are normal in s ize. The calvarium appears normal. The visualized paranasal sinuses and mastoid air cells are clear . Impression: Mass lesion at the fourth ventricle extending to the left CP angle region, similar to prior exam. Reviewed, dictated and finalized at location . [facility] MBA Impression: Mass lesion at the fourth ventricle extending to the left CP angle region, meseret lar to prior exam.
[2023-04-07 06:01] LABS: Glucose Point of Care 118 mg/dl (65-105)
--- NOTE | 2023-04-07 06:03 | ECG_ITS ---
Measurements Intervals [place] Rate: 78 P: 8 [place]: 135 QRS: -30 QRSD: 134 T: 35 QT: 364 QTc: 417 Interpretive Statements SINUS RHYTHM LEFT AXIS DEVIATION RIGHT BUNDLE BRANCH BLOCK LOW VOLTAGE- PRECORDIAL LEADS CONSIDER INFERIOR INFARCT, AGE INDETERMINATE BASELINE ARTIFACT- I, II, III, AVR, AVL, AVF, V1-V6 ABNORMAL ECG COMPARED TO ECG 08/02/2022 10:55:02 NO SIGNIFICANT CHANGES Electronically Signed On 04-07-2023 6:56:55 TABLE SETTER by Beka Esquivel D.O.
[2023-04-07 06:24] LABS: Basophils Percent Auto 0.3 % (0.2-1.2); Eosinophils Absolute Auto 0.3 K/mm3 (0-0.3); Eosinophils Percent Auto 2.7 % (0-4.4); Hematocrit 37.7 % (37.0-47.0); Hemoglobin 11.9 g/dL (12.0-15.0); Immature Granulocyte Absolute 0.04 K/mm3 (0.00-0.031); Immature Granulocyte Percent A 0.3 % (0-0.5); Lymphocytes Absolute Auto 1.65 K/mm3 (0.9-3.2); Lymphocytes Percent Auto 14.1 % (18.3-44.2); Mean Corpuscular HGB Conc 31.6 g/dl (32-36); Mean Corpuscular Hemoglobin 30.9 pg (26-34); Mean Corpuscular Volume 97.9 fl (80-100); Mean Platelet Volume 11.4 fl (7.4-10.4); Monocytes Absolute Auto 0.6 K/mm3 (0.1-0.6); Neutrophils Absolute Auto 9.1 K/mm3 (1.3-6.7); Neutrophils Percent Auto 77.6 % (45.5-73.1); Platelet Count Result 277 k/mm3 (150-375); Red Blood Count 3.85 M/mm3 (4.2-5.4); Red Cell Distribution Width 15.2 % (11.5-14.5); White Blood Count 11.7 K/mm3 (4.5-10.0)
--- NOTE | 2023-04-07 06:43 | ED.GENADULT ---
HPI - General Adult General Chief complaint: Weakness Stated complaint: weakness Time Seen by Provider: 04/07/23 06:05 History of Present Illness HPI narrative: Patient brought to the emergency department by her neighbor. Concern for increasing weakness. She was diagnosed with brain masses in July 2022. Since then she has had intermittent episodes of weakness. Her neighbor states that over the past week she has been persistently weak and at times falling out of her chair. Neighbor states that every morning she was a check on her and she is laying on the ground. Patient denies any particular complaints currently. Related Data Home Medications Medication Instructions Recorded Confirmed cpktujocxgm-lydzfutbc-M-Mn-boron 1 tablet PO BID 03/19/19 04/07/23 750 mg-600 mg-30 mg-1mg-1.5mg tablet lutein 25 mg-zeaxanthin 5 mg 1 cap PO DAILY 03/19/19 04/07/23 capsule multivitamin 1 tablet PO DAILY 03/19/19 04/07/23 omega-3 fatty acids 1,000 mg 1,000 mg PO DAILY 03/08/20 04/07/23 capsule (Fish Oil Concentrate) levothyroxine 50 mcg tablet 50 mcg PO DAILY 04/07/23 04/07/23 Allergies Allergy/AdvReac Type Severity Reaction Status Date / Time Sulfa (Sulfonamide Allergy Unknown Unknown Verified 04/07/23 10:45 Antibiotics) Review of Systems Constitutional: Comments: Negative except for what is documented in the HPI [facility] Past Medical History Medical History (Updated 04/14/23 @ 19:53 by India Greer MD) Benign essential hypertension Chronic anemia Chronic kidney disease Chronic sinusitis Gastroesophageal reflux disease Hearing loss Hyperlipidemia Hypertension Hypothyroidism Impaired glucose tolerance (oral) Iron deficiency anemia Osteoarthritis Reactive airway disease Seasonal allergies Surgical History Surgical History (Updated 04/07/23 @ 14:10 by Gracie Salomon PA-C) History of colonoscopy with polypectomy History of hysteroscopy (05/2003) With D&C and polypectomy for postmenopausal bleeding, pathology benign. History of ovarian cystectomy (1991) History of tonsillectomy (1974) Status post anal fissurectomy (1972) Family History Family History Father Diabetes mellitus Family history of cardiovascular disease Family history of diabetes mellitus in first degree relative Family history of heart disease in male family member before age 55 Cancer Hypertension Cerebrovascular accident Mother Family history of Alzheimer's disease Diabetes mellitus Hypertension Social History Social History (Updated 04/07/23 @ 23:36 by Gracie Salomon PA-C) Social History: Healthcare power of insurance defense attorney: Cathy Gray, friend. Code status: Full code. Smoking status: Never smoker Second hand tobacco smoke exposure: No Alcohol intake: never Substance use: never Substance use type: does not use Lack of Transportation: No Lack of Food: Never True Current Housing: I Have Housing Concerned About Future Housing: No Difficulty Paying Gas/Electric Bills: No Difficulty Paying for Meds: No Currently Unemployed: No Education: Bachelor's Degree Difficulty w/ Childcare or Family Care: No Living arrangements: alone Additional living arrangements comments: Single, never with no children. [place]. 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 Spiritual care concerns: No Exam Narrative: GENERAL: Well-appearing, well-nourished, and in no acute distress. Patient lays with eyes closed HEAD: Normocephalic, atraumatic. EYES: PERRLA and EOMI. ENT: Nares clear, no rhinorrhea or epistaxis. Mucous membranes moist. NECK: Supple. CHEST: Clear to auscultation. No respiratory distress. HEART: Regular rate and rhythm. ABDOMEN: Soft, nontender, nondistended. EXTREMITIES: Normal range of motion. No edema. SKIN: Warm, dry,
[2023-04-07 07:25] LABS: Alanine Aminotransferase 22 U/L (6-35); Albumin Level 3.8 g/dL (3.5-5.1); Alkaline Phosphatase 64 U/L (38-126); Anion Gap 9 mmol/L (8-16); Aspartate Amino Transferase 37 U/L (14-36); Bilirubin,Total 0.6 mg/dL (0.2-1.3); Blood Urea Nitrogen 36 mg/dL (7-17); Calcium 9.7 mg/dL (8.4-10.2); Carbon Dioxide 25 mmol/L (22-30); Chloride 98 mmol/L (98-107); Estimated CRCL calculation 11 ml/min; Estimated Glomerular Filt Rate 14; Glucose 97 mg/dL (65-110); Potassium 3.7 mmol/L (3.4-5.0); Sodium 132 mmol/L (137-145)
[2023-04-07] MEDS: SODIUM CHLORIDE 0.9% IV 1,000 ML 999 ML IV CONT ×2 (07:48→11:12)
[2023-04-07 07:58] LABS: Appearance Urine Cloudy (Clear); Bilirubin Urine 1+ (Negative); Blood Urine Negative (Negative); Color Urine Dark Yellow (Yellow); Glucose Urine UA Negative (Negative); Ketones Urine Trace mg/dL (Negative); Leukocyte Esterase Ur Trace LEU/UL (Negative); Nitrate Urine Negative (Negative); Protein Urine Trace mg/dL (Negative); Specific Grav Ur 1.017 (1.001-1.035)
[2023-04-07 08:20] LABS: Add Urine Microscopic? YES; RBC Urine 0-2 /hpf (0-2)
[2023-04-07 08:21] LABS: Squamous Epithelial Cell Urine Few /hpf (Few)
[2023-04-07 08:29] LABS: Bacteria Urine 1+ /hpf
--- NOTE | 2023-04-07 08:51 | PC.NURSE ---
Pt had total of 1500ml of IV fluids infused per EDP order.
--- NOTE | 2023-04-07 09:50 | ADMGEN ---
This patient, Renay Collado, was admitted to [facility] Surg Room 321-01. Patient/family oriented to hospital policies and general routines including ID bracelet, bed and alarms, visiting hours, pain management, procedures, bathroom and other care routines, personal items, smoking policy, room service/diet, and visiting hours. Information on how to activate the Rapid Response Team has been discussed. Patient/Family are encouraged to report perceived risks to care and to ask questions if they do not understand what they are told or what they should do.
[2023-04-07] MEDS: SODIUM CHLORIDE 0.9% IV 1,000 ML 125 ML IV CONT (11:13)
--- NOTE | 2023-04-07 14:06 | PM.IMHP ---
H&P: HPI History of Present Illness Date/Time: 04/07/23 14:45 Chief Complaint: Frequent falls and weakness. Narrative: This is a 77-year-old female with hypertension, hyperlipidemia, and hypothyroidism who presented to the emergency department via EMS for evaluation of frequent falls and weakness. The patient provides the following history. She was diagnosed with a brain mass in July 2022 and was referred to [facility] at that time. She cannot unable tell me what was done at that facility and she has no knowledge as to a working diagnosis. Since that time however she tells me she has intermittent episodes of weakness which has been much worse the past 7 to 10 days. She has difficulties getting out of her chair and has had several falls and she believes that she had brief syncope on a couple of occasions with reports of lightheadedness and dizziness upon standing. Her neighbors check on her daily and they frequently find her on the ground. This morning EMS was called for lift assist and she was brought in for evaluation. Blood pressure was as low as 80/53 in the ED but it has responded to IV fluids. Her labs were significant for a WBC count of 11.7, stable anemia, and acute kidney injury with a creatinine of 3.20. Urine is positive for trace ketones, trace leukocyte esterase, 4 to 6 WBC, and 1+ bacteria. Brain CT showed a mass lesion at the 4th ventricle extending to the left CP angle region which is similar to prior exam. Chest x-ray was normal. EKG did not show any acute changes compared to prior tracings. She received a 30 mL/kg bolus of normal saline and 1 g ceftriaxone and she is being admitted in this setting for further treatment and evaluation of acute on chronic kidney injury. At the time my evaluation she is somnolent but arousable. She does not put much effort into answering my questions are participating the exam however and tells me that she just wants to sleep. She denies fever, chills, sweats, headache, sinus congestion, sore throat, cough, chest pain, shortness a breath, abdominal pain, nausea, vomiting, diarrhea, and dysuria. Review of Systems Review of Systems: Unable to obtain accurately as she does not participate much as detailed above. [facility] Past Medical History Medical History (Updated 04/07/23 @ 14:15 by Gracie Salomon PA-C) Benign essential hypertension Chronic anemia Chronic kidney disease Chronic sinusitis Gastroesophageal reflux disease Hearing loss Hyperlipidemia Hypertension Hypothyroidism Impaired glucose tolerance (oral) Iron deficiency anemia Osteoarthritis Reactive airway disease Seasonal allergies Surgical History Surgical History (Updated 04/07/23 @ 14:10 by Gracie Salomon PA-C) History of colonoscopy with polypectomy History of hysteroscopy (05/2003) With D&C and polypectomy for postmenopausal bleeding, pathology benign. History of ovarian cystectomy (1991) History of tonsillectomy (1974) Status post anal fissurectomy (1972) Family History Family History Father Diabetes mellitus Family history of cardiovascular disease Family history of diabetes mellitus in first degree relative Family history of heart disease in male family member before age 55 Cancer Hypertension Cerebrovascular accident Mother Family history of Alzheimer's disease Diabetes mellitus Hypertension Social History Social History (Updated 04/07/23 @ 23:36 by Gracie Salomon PA-C) Social History: Healthcare power of assistant prosecuting attorney: Cathy Gray, friend. Code status: Full code. Smoking status: Never smoker Second hand tobacco smoke exposure: No Alcohol intake: never Substance use: never Substance use type: does not use Lack of Transportation: No Lack of Food: Never True Current Housing: I Have Housing Concerned About Future Housing: No Difficulty Paying Gas/Electric Bills: No Difficulty Paying for Me
[2023-04-07] MEDS: SODIUM CHLORIDE 0.9% IV 1,000 ML 100 ML IV CONT (20:48)
[2023-04-08 06:00] VITALS: BP 107/50; PULSE 73; RESP 16; TEMP 36.4; O2SAT 99
[2023-04-08] MEDS: LEVOTHYROXINE SODIUM 50 MCG TABLET PO (06:26)
[2023-04-08] MEDS: SODIUM CHLORIDE 0.9% IV 1,000 ML 100 ML IV CONT ×2 (06:28→23:25)
[2023-04-08 07:15] LABS: Hematocrit 32.7 % (37.0-47.0); Hemoglobin 9.9 g/dL (12.0-15.0); Mean Corpuscular HGB Conc 30.3 g/dl (32-36); Mean Corpuscular Hemoglobin 30.7 pg (26-34); Mean Corpuscular Volume 101.6 fl (80-100); Platelet Count Result 234 k/mm3 (150-375); Red Blood Count 3.22 M/mm3 (4.2-5.4); Red Cell Distribution Width 15.6 % (11.5-14.5); White Blood Count 6.7 K/mm3 (4.5-10.0)
[2023-04-08 07:32] LABS: Alanine Aminotransferase 16 U/L (6-35); Albumin Level 2.8 g/dL (3.5-5.1); Alkaline Phosphatase 58 U/L (38-126); Anion Gap 6 mmol/L (8-16); Aspartate Amino Transferase 38 U/L (14-36); Bilirubin,Total 0.5 mg/dL (0.2-1.3); Blood Urea Nitrogen 21 mg/dL (7-17); Calcium 8.2 mg/dL (8.4-10.2); Carbon Dioxide 17 mmol/L (22-30); Chloride 113 mmol/L (98-107); Estimated CRCL calculation 18 ml/min; Estimated Glomerular Filt Rate 27; Magnesium 1.5 mg/dL (1.6-2.3); Potassium 3.7 mmol/L (3.4-5.0); Sodium 136 mmol/L (137-145)
[2023-04-08 07:40] LABS: Creatine Kinase 290 U/L (30-135); Glucose 61 mg/dL (65-110)
[2023-04-08 10:21] LABS: Free T4 Free Thyroxine Reflex 0.19 ng/dL (0.78-2.19)
[2023-04-08] MEDS: FOLIC ACID 1 MG TABLET BY MOUTH (10:39)
[2023-04-08] MEDS: MULTIVITAMINS THERAPEUTIC TAB (*BKC) 1 TABLET PO (10:39)
[2023-04-08] MEDS: OMEGA 3 POLYUNSAT FATTY ACIDS 1 GM CAP PO (10:39)
[2023-04-08 10:50] VITALS: BMI 20.6
--- NOTE | 2023-04-08 12:25 | PM.IMPN ---
Progress Note: A&P Assessment and Plan (1) Acute kidney injury superimposed on chronic kidney disease: Code(s): N17.9 - Acute kidney failure, unspecified; N18.9 - Chronic kidney disease, unspecified Status: Acute Assessment and Plan: Improving with IV fluids, continue this, anticipate discharge home soon (2) Frequent falls: Code(s): R29.6 - Repeated falls Status: Acute Assessment and Plan: Likely secondary to dehydration PT/OT (3) Abnormal urinalysis: Code(s): R82.90 - Unspecified abnormal findings in urine Status: Acute Assessment and Plan: Concern for UTI, Rocephin initiated 04/07 Follow-up urine culture (4) Generalized weakness: Code(s): R53.1 - Weakness Status: Acute Assessment and Plan: Multifactorial, as above (5) Brain mass: Code(s): G93.89 - Other specified disorders of brain Status: Acute (6) Chronic anemia: Code(s): D64.9 - Anemia, unspecified Status: Acute (7) Benign essential hypertension: Code(s): I10 - Essential (primary) hypertension Status: Acute Assessment and Plan: Blood pressure reviewed 04/08 Still on the low side, monitor, hold antihypertensives Check orthostatics (8) Hypothyroidism: Code(s): E03.9 - Hypothyroidism, unspecified Status: Acute Assessment and Plan: Check TSH, continue levothyroxine Plan DVT prophylaxis with SCDs GI prophylaxis not indicated Code status full code Subjective Date/time seen: 04/08/23 12:25 Interval history: 77-year-old female with hypertension, hyperlipidemia, and hypothyroidism who presented to the emergency department via EMS for evaluation of frequent falls and weakness is currently being treated for dehydration. No overnight events noted. No chest pain or shortness of breath. No nausea, vomiting or diarrhea. No fevers. She does feel chilled. Review of Systems Review of Systems: 12 point review of systems was assessed and was negative except as noted in the HPI Exam Narrative: General: No acute distress, alert and oriented per baseline HEENT: Atraumatic, normocephalic, mucous membranes moist CV: Regular rate and rhythm, S1, S2 Lungs: Clear to auscultation bilaterally, no rales or crackles noted, no wheezes, good air entry Abdomen: Soft, nontender, nondistended Extremities: Normal to inspection Skin: No rashes noted, no lesions or wounds seen Psych: Euthymic, normal affect Objective Data Vital Signs Vital Signs: Vital Signs - 24 hr 04/07/23 14:00 04/07/23 16:18 04/07/23 20:00 Temperature 98.7 F 98.7 F Pulse Rate 72 72 Respiratory Rate 12 12 Blood Pressure 102/50 L 102/50 L Pulse Oximetry 98 97 97 Oxygen Delivery Room Air 04/07/23 20:00 04/07/23 22:00 04/08/23 06:00 Temperature 98.5 F 97.6 F Pulse Rate 72 78 73 Respiratory Rate 12 16 16 Blood Pressure 99/42 L 107/50 L Pulse Oximetry 97 100 99 Oxygen Delivery Room Air Intake/Output Intake/Output: Intake & Output 04/06/23 04/06/23 04/07/23 04/08/23 00:59 23:59 23:59 23:59 Intake Total 2668 1440 Output Total 800 750 Balance 1868 690 Meds/Results Medications: Active Medications Generic Name Dose Route Start Last Admin Trade Name Ericq PRN Reason Stop Dose Admin Acetaminophen 650 mg 04/07/23 08:41 Acetaminophen 325 Mg Tablet PO Q4H PRN Mild Pain (1-3) or Fever Fish Oil 1 gm 04/08/23 09:00 04/08/23 10:39 [place] 3 Polyunsat Fatty Acids 1 Gm Cap PO 1 gm DAILY YIMI Administration Folic Acid 1 mg 04/08/23 09:00 04/08/23 10:39 Folic Acid 1 Mg Tablet BY MOUTH 1 mg DAILY YIMI Administration Sodium Chloride 1,000 mls @ 100 mls/hr 04/07/23 08:45 04/08/23 06:28 Normal Saline Iv IV CONT 100 mls/hr .Q10H YIMI Administration Ceftriaxone Sodium 1 gm in 50 mls @ 100 mls/hr 04/08/23 09:00 04/08/23 10:48 Rocephin 1 Gm/N
--- NOTE | 2023-04-08 12:45 | PCOTNOTE ---
Attempted to see patient for OT evaluation. Patient refused due to being too tired. Will continue to attempt.
[2023-04-08 14:00] VITALS: BP 110/53; PULSE 78; RESP 14; TEMP 36.6; O2SAT 99
[2023-04-08 20:00] VITALS: PULSE 78; RESP 14; O2SAT 99
--- NOTE | 2023-04-08 20:19 | PC.NURSE ---
Pt was active in bed today. Pt had multiple attempts at getting out of bed, but was redirected to sit back down in bed or back in chair when up in chair. Pt pulled out IV, and new IV was placed. Pt tolerated well. Pt was monitored for any changes in status this shift.
[2023-04-08 21:33] VITALS: BP 103/42; PULSE 73; RESP 14; TEMP 36.1; O2SAT 100
[2023-04-09 05:46] VITALS: BP 100/40; PULSE 63; RESP 13; TEMP 36.4; O2SAT 100
[2023-04-09 06:07] LABS: Basophils Percent Auto 0.8 % (0.2-1.2); Eosinophils Absolute Auto 0.3 K/mm3 (0-0.3); Eosinophils Percent Auto 6.3 % (0-4.4); Hematocrit 29.2 % (37.0-47.0); Hemoglobin 9.2 g/dL (12.0-15.0); Immature Granulocyte Absolute 0.02 K/mm3 (0.00-0.031); Immature Granulocyte Percent A 0.4 % (0-0.5); Immature Platelet Fraction Pct 6.2 % (0.9-11.2); Lymphocytes Percent Auto 34.8 % (18.3-44.2); Mean Corpuscular HGB Conc 31.5 g/dl (32-36); Mean Corpuscular Hemoglobin 30.9 pg (26-34); Mean Platelet Volume 12.1 fl (7.4-10.4); Monocytes Absolute Auto 0.6 K/mm3 (0.1-0.6); Monocytes Percent Auto 11.2 % (2.6-8.5); Neutrophils Absolute Auto 2.3 K/mm3 (1.3-6.7); Neutrophils Percent Auto 46.5 % (45.5-73.1); Platelet Count Result 190 k/mm3 (150-375); Red Blood Count 2.98 M/mm3 (4.2-5.4); Red Cell Distribution Width 15.6 % (11.5-14.5); White Blood Count 4.9 K/mm3 (4.5-10.0)
[2023-04-09] MEDS: LEVOTHYROXINE SODIUM 50 MCG TABLET PO (06:16)
[2023-04-09 06:26] LABS: Alanine Aminotransferase 16 U/L (6-35); Albumin Level 2.5 g/dL (3.5-5.1); Alkaline Phosphatase 40 U/L (38-126); Anion Gap 5 mmol/L (8-16); Aspartate Amino Transferase 44 U/L (14-36); Bilirubin,Total 0.7 mg/dL (0.2-1.3); Blood Urea Nitrogen 14 mg/dL (7-17); Calcium 7.7 mg/dL (8.4-10.2); Carbon Dioxide 19 mmol/L (22-30); Chloride 111 mmol/L (98-107); Estimated CRCL calculation 25 ml/min; Estimated Glomerular Filt Rate 40; Glucose 59 mg/dL (65-110); Potassium 4.3 mmol/L (3.4-5.0); Sodium 135 mmol/L (137-145)
[2023-04-09 06:55] LABS: Glucose Point of Care 79 mg/dl (65-105)
[2023-04-09 08:45] LABS: Glucose Point of Care 101 mg/dl (65-105)
[2023-04-09] MEDS: OMEGA 3 POLYUNSAT FATTY ACIDS 1 GM CAP PO (09:05)
[2023-04-09] MEDS: MULTIVITAMINS THERAPEUTIC TAB (*BKC) 1 TABLET PO (09:05)
[2023-04-09] MEDS: FOLIC ACID 1 MG TABLET BY MOUTH (09:05)
[2023-04-09] MEDS: SODIUM CHLORIDE 0.9% IV 1,000 ML 100 ML IV CONT (09:06)
[2023-04-09 10:32] LABS: Ovalocytes 1+ (NORMAL); Platelet Estimate Adequate (Adequate)
[2023-04-09 10:33] LABS: Burr Cells 1+ (NORMAL); Schistocytes None Seen (NORMAL)
[2023-04-09 11:38] LABS: Glucose Point of Care 95 mg/dl (65-105)
--- NOTE | 2023-04-09 11:52 | PM.IMPN ---
Progress Note: A&P Assessment and Plan (1) Acute kidney injury superimposed on chronic kidney disease: Code(s): N17.9 - Acute kidney failure, unspecified; N18.9 - Chronic kidney disease, unspecified Status: Acute Assessment and Plan: Cr elevated on admission to 3.2. Lisinopril held. Cr improving with IV fluids down to 1.3. Will stop IV fluids. BP soft this morning so will monitor closely. If BP remains stable, home tomorrow. (2) Frequent falls: Code(s): R29.6 - Repeated falls Status: Acute Assessment and Plan: Likely secondary to dehydration. Also has known brain mass. She is working with PT/OT She plans to go home after this (3) Abnormal urinalysis: Code(s): R82.90 - Unspecified abnormal findings in urine Status: Acute Assessment and Plan: UA concerning for UTI, Rocephin initiated 04/07 Follow-up urine culture negative Rocephin stopped UTI ruled out (4) Generalized weakness: Code(s): R53.1 - Weakness Status: Acute Assessment and Plan: Head CT showing mass lesion at the fourth ventricle extending to the left CP angle region without change. Tele showing run of NSVT but Mag low so will replace. B12/folate normal in July. TSH mildly elevated here. Suspect weakness in multifactorial from above Better with therapy. (5) Brain mass: Code(s): G93.89 - Other specified disorders of brain Status: Acute Assessment and Plan: As above (6) Chronic anemia: Code(s): D64.9 - Anemia, unspecified Status: Acute Assessment and Plan: Iron studies in July showing anemia of chronic disease. Hgb low in the 9 range. Follow (7) Benign essential hypertension: Code(s): I10 - Essential (primary) hypertension Status: Acute Assessment and Plan: Blood pressure reviewed 04/08 Still on the low side, monitor, hold antihypertensives (8) Hypothyroidism: Code(s): E03.9 - Hypothyroidism, unspecified Status: Acute Assessment and Plan: TSH slightly elevated at 9.3 but will hold of on adjusting meds. Defer to PCP. Continue levothyroxine Plan Hypoglyceia - glucose was down to 59 today. Better with treatment. COntinue hypoglycemia protocol. Not on glucose lowering medications. Appears to be eating. Follow. DVT prophylaxis with SCDs GI prophylaxis not indicated Code status full code Subjective Date/time seen: 04/09/23 11:52 Interval history: 77-year-old female with hypertension, hyperlipidemia, and hypothyroidism who presented to the emergency department via EMS for evaluation of frequent falls and weakness is currently being treated for dehydration. Assuming care. Chart reviewed. Feels better overall but not feeling well today. Walking in halls. No lightheadedness with standing. No CP. No SOB. Not on abx prior to admission Exam Narrative: AF 97.6 100/40 63 13 100% Gen - NARD Chest - CTA bilaterally, nml RR CV - RRR S1/S2. Tele showing PACs and 8b run NSVT Abd - Soft, ND, denies tenderness but with guarding - Olmedo secured draining clear yellow urine. Ext - No pedal edema Psych - Nml mood and affect Skin - Warm and dry Objective Data Vital Signs Vital Signs: Vital Signs - 24 hr 04/08/23 14:00 04/08/23 20:00 04/08/23 21:33 Temperature 97.8 F 97.0 F L Pulse Rate 78 78 73 Respiratory Rate 14 14 14 Blood Pressure 110/53 L 103/42 L Pulse Oximetry 99 99 100 Oxygen Delivery Room Air 04/09/23 05:46 Temperature 97.6 F Pulse Rate 63 Respiratory Rate 13 Blood Pressure 100/40 L Pulse Oximetry 100 Oxygen Delivery Intake/Output Intake/Output: Intake & Output 04/06/23 04/07/23 04/08/23 04/09/23 23:59 23:59 23:59 23:59 Intake Total 1507 1110 9226 Output Total 474 2525 650 Balance 1868 1175 1086 Meds/Results Medications: Active Medications Generic Name Dose Route Start Last Admin Trade Name Freq PRN
[2023-04-09 12:31] LABS: Magnesium 1.2 mg/dL (1.6-2.3)
[2023-04-09 13:00] VITALS: BP 120/55
[2023-04-09 13:05] VITALS: BP 120/63
[2023-04-09 13:10] VITALS: BP 123/54
[2023-04-09 14:00] VITALS: BP 120/55; PULSE 78; RESP 20; TEMP 36.7; O2SAT 97
[2023-04-09 17:02] LABS: Glucose Point of Care 103 mg/dl (65-105)
[2023-04-09] MEDS: MAGNESIUM SULF 2 GM/WATER 50ML 2 GM/50 ML BAG IVPB (18:53)
[2023-04-09 21:53] VITALS: BP 100/45; PULSE 65; RESP 16; TEMP 36.2; O2SAT 98
[2023-04-09 22:52] LABS: Glucose Point of Care 91 mg/dl (65-105)
[2023-04-10 06:00] VITALS: BP 102/46; PULSE 65; RESP 18; TEMP 36; O2SAT 99
[2023-04-10 06:16] LABS: Basophils Percent Auto 0.8 % (0.2-1.2); Eosinophils Absolute Auto 0.2 K/mm3 (0-0.3); Eosinophils Percent Auto 5.7 % (0-4.4); Hemoglobin 9.4 g/dL (12.0-15.0); Immature Granulocyte Absolute 0.02 K/mm3 (0.00-0.031); Immature Granulocyte Percent A 0.5 % (0-0.5); Lymphocytes Percent Auto 28.5 % (18.3-44.2); Mean Corpuscular HGB Conc 32.4 g/dl (32-36); Mean Corpuscular Hemoglobin 31.4 pg (26-34); Mean Platelet Volume 12.1 fl (7.4-10.4); Monocytes Absolute Auto 0.5 K/mm3 (0.1-0.6); Neutrophils Percent Auto 51.5 % (45.5-73.1); Platelet Count Result 206 k/mm3 (150-375); Red Blood Count 2.99 M/mm3 (4.2-5.4); Red Cell Distribution Width 15.7 % (11.5-14.5); White Blood Count 3.9 K/mm3 (4.5-10.0)
[2023-04-10 06:20] LABS: Alanine Aminotransferase 17 U/L (6-35); Albumin Level 2.8 g/dL (3.5-5.1); Alkaline Phosphatase 55 U/L (38-126); Anion Gap 6 mmol/L (8-16); Aspartate Amino Transferase 42 U/L (14-36); Bilirubin,Total 0.5 mg/dL (0.2-1.3); Blood Urea Nitrogen 8 mg/dL (7-17); Calcium 7.9 mg/dL (8.4-10.2); Carbon Dioxide 18 mmol/L (22-30); Chloride 110 mmol/L (98-107); Estimated CRCL calculation 32 ml/min; Estimated Glomerular Filt Rate 54; Glucose 73 mg/dL (65-110); Potassium 4.2 mmol/L (3.4-5.0); Sodium 134 mmol/L (137-145)
[2023-04-10] MEDS: LEVOTHYROXINE SODIUM 50 MCG TABLET PO (07:07)
[2023-04-10 08:00] VITALS: BP 137/68; PULSE 78; RESP 18; TEMP 36.5; O2SAT 100
[2023-04-10] MEDS: MULTIVITAMINS THERAPEUTIC TAB (*BKC) 1 TABLET PO (08:40)
[2023-04-10] MEDS: FOLIC ACID 1 MG TABLET BY MOUTH (08:40)
[2023-04-10] MEDS: OMEGA 3 POLYUNSAT FATTY ACIDS 1 GM CAP PO (08:40)
[2023-04-10 10:59] VITALS: BP 110/61; BP 130/71; PULSE 81; RESP 18; TEMP 36.5; O2SAT 98
--- NOTE | 2023-04-10 15:20 | PM.DS ---
DS: Admitting Diagnosis Discharge Date 04/10/23 Admitting Diagnosis Falls DS: Discharge Diagnosis Discharge Diagnosis (1) Acute kidney injury superimposed on chronic kidney disease: Code(s): N17.9 - Acute kidney failure, unspecified; N18.9 - Chronic kidney disease, unspecified Status: Acute (2) Frequent falls: Code(s): R29.6 - Repeated falls Status: Acute (3) Abnormal urinalysis: Code(s): R82.90 - Unspecified abnormal findings in urine Status: Acute (4) Generalized weakness: Code(s): R53.1 - Weakness Status: Acute (5) Brain mass: Code(s): G93.89 - Other specified disorders of brain Status: Acute (6) Chronic anemia: Code(s): D64.9 - Anemia, unspecified Status: Acute (7) Benign essential hypertension: Code(s): I10 - Essential (primary) hypertension Status: Acute (8) Hypothyroidism: Code(s): E03.9 - Hypothyroidism, unspecified Status: Acute DS: Summary Hospital Course Reason for hospitalization: 77-year-old female with known brain mass, hypertension, hyperlipidemia, and hypothyroidism who presented to the emergency department via EMS for evaluation of frequent falls and weakness is currently being treated for dehydration. Please see H&P for details. Hospital Course: Cr was elevated on admission to 3.2. Lisinopril was held. Cr improving with IV fluids down to 1.3. IV fluids stopped and Cr was 1.0 at time of discharge. BP was soft at times but improved overall. It ws felt her falls likely secondary to dehydration and/or related to her known brain mass. She worked with PT/OT and did well. UA was concerning for UTI but urine culture negative. Head CT showing mass lesion at the fourth ventricle extending to the left CP angle region without change. B12/folate normal in July. TSH slightly elevated at 9.3 but held off on adjusting meds. She has a chronic anemia with Hgb low in the 9 range. Iron studies in July showing anemia of chronic disease. Hgb was stable here. She had clinical improvement. She was able to be discharged home on 04/10/23 with home health. Discharge instructions discussed with the patient and her friend (with patient permission). Status at Discharge Cognitive/behavioral status at discharge: Stable Time Spent with Patient Time attestation: Total time spent providing and/or coordinating discharge services: 35 minutes Time spent: Greater than 30 minutes Exam Narrative: AF 97.7 110/61 81 18 98% ra Gen - NARD Chest - CTA bilaterally, nml RR CV - RRR S1/S2 Abd - Soft, NT/ND Ext - No pedal edema Psych - Nml mood and affect Skin - Warm and dry DS: Data Data Completed and Pending Labs on day of discharge: Labs from last 24 hours 04/10/23 04/09/23 04/09/23 05:36 22:33 16:42 WBC 3.9 L RBC 2.99 L Hgb 9.4 L Hct 29.0 L MCV 97.0 MCH 31.4 MCHC 32.4 RDW 15.7 H Plt Count 206 MPV 12.1 H Immature Gran % (Auto) 0.5 Neut % (Auto) 51.5 Lymph % (Auto) 28.5 Maury % (Auto) 13.0 H Eos % (Auto) 5.7 H Baso % (Auto) 0.8 Lymph # (Auto) 1.10 Maury # (Auto) 0.5 Eos # (Auto) 0.2 Baso # (Auto) 0.0 Abs Immat Gran (auto) 0.02 Absolute Neuts (auto) 2.0 Absolute Nucleated RBC 0.0 Nucleated RBC % 0.0 Sodium 134 L Potassium 4.2 Chloride 110 H Carbon Dioxide 18 L Anion Gap 6 L BUN 8 D Creatinine 1.00 Estim Creat Clear Calc 32 Estimated GFR 54 L Glucose 73 POC Capillary Glucose 91 103 Calcium 7.9 L Magnesium 2.0 Total Bilirubin 0.5 AST 42 H ALT 17 Alkaline Phosphatase 55 Total Protein 6.0 L Albumin 2.8 L Discharge Plan Discharge Attending physician on discharge: Inocencio Mcdaniels Discharging Clinician: Inocencio Mcdaniels Anticipated Discharge Date/Time: 04/10/23 15:32 Patient Disposition: Home Health Service Activity: as tolerat
== END 2023-04-10 16:10 | disposition home health service (06) ==
LOC: ANHED 07:12 → ANH3MEDSUR 09:36
PROVIDERS: Emergency Medicine; Physician Assistant; Student in an Organized Health Care Education/Training Program; Admitting Provider Hospitalist; Emergency Provider Emergency Medicine; PCP Internal Medicine; Visit Provider Hospitalist
DX: N17.9 Acute kidney failure, unspecified (principal); R29.6 Repeated falls; R82.90 Unspecified abnormal findings in urine; R53.1 Weakness; G93.89 Other specified disorders of brain; D64.9 Anemia, unspecified; E03.9 Hypothyroidism, unspecified; I12.9 Hypertensive chronic kidney disease with stage 1 through stage 4 chronic kidney disease, or unspecified chronic kidney disease; N18.9 Chronic kidney disease, unspecified; J32.9 Chronic sinusitis, unspecified; K21.9 Gastro-esophageal reflux disease without esophagitis; E78.5 Hyperlipidemia, unspecified; H91.90 Unspecified hearing loss, unspecified ear; R94.31 Abnormal electrocardiogram [ECG] [EKG]; D50.9 Iron deficiency anemia, unspecified; R73.02 Impaired glucose tolerance (oral); M19.90 Unspecified osteoarthritis, unspecified site; J45.909 Unspecified asthma, uncomplicated; Z79.899 Other long term (current) drug therapy; Z83.3 Family history of diabetes mellitus; Z82.49 Family history of ischemic heart disease and other diseases of the circulatory system
CPT/HCPCS: 36415; 70450; 71046; 76775; 80053; 81001; 82550; 82948; 83735; 84439; 84443; 85025; 85027; 85055; 87086; 93005; 96365; 96374; 96375; 97110; 97161; 97165; 97530; 97535; 99285; A9270; G0378; J0696; J3475; J7030; J7040

== ENCOUNTER 2023-04-17 11:21 | Inpatient (IN) | payer OTHER, SELFPAY ==
[2023-04-17] VITALS (9 sets, daily range): BP systolic 114–129; BP diastolic 65–72; PULSE 78–89; RESP 12–20; TEMP 36.4–36.8; O2SAT 97–100; BMI 20.3
--- NOTE | ~2023-04-17 | XR_ITS ---
EXAMINATION: XR chest 2V DATE: 04/17/2023 12:31 INDICATION: Weakness. TECHNIQUE: Frontal and lateral views of the chest were obtained. COMPARISON: Chest 2 views 04/07/2023, chest CT 08/04/2022 FINDINGS: There is mild atelectasis in the lower lung zones. No pleural effusion or pneumothorax. The heart size is normal. IMPRESSION: 1. Mild atelectasis in the lower lung zones. Reviewed, dictated and finalized at location A. OR WATER RESOURCES ENGINEER
--- NOTE | 2023-04-17 11:27 | ECG_ITS ---
Measurements Intervals [place] Rate: 78 P: -8 CT: 148 QRS: -28 QRSD: 77 T: 150 QT: 439 QTc: 501 Interpretive Statements SINUS RHYTHM LOW QRS VOLTAGE IN PRECORDIAL LEADS INFERIOR INFARCT, AGE INDETERMINATE ST-T WAVE ABNORMALITY IN ANTEROLAT/HIGH LAT LEADS- CONSIDER ISCHEMIA BASELINE ARTIFACT- II, III, AVF, V2 ABNORMAL ECG COMPARED TO ECG 04/07/2023 05:57:42 ST (T WAVE) DEVIATION NOW PRESENT Electronically Signed On 04-17-2023 11:40:36 SECURITY CONTROL ASSESSOR by Beka Esquivel D.O.
[2023-04-17 12:06] LABS: Basophils Percent Auto 0.6 % (0.2-1.2); Eosinophils Absolute Auto 0.3 K/mm3 (0-0.3); Hematocrit 30.8 % (37.0-47.0); Hemoglobin 9.8 g/dL (12.0-15.0); Immature Granulocyte Absolute 0.03 K/mm3 (0.00-0.031); Immature Granulocyte Percent A 0.6 % (0-0.5); Lymphocytes Absolute Auto 1.64 K/mm3 (0.9-3.2); Lymphocytes Percent Auto 32.6 % (18.3-44.2); Mean Corpuscular HGB Conc 31.8 g/dl (32-36); Mean Corpuscular Hemoglobin 30.7 pg (26-34); Mean Corpuscular Volume 96.6 fl (80-100); Mean Platelet Volume 11.8 fl (7.4-10.4); Monocytes Absolute Auto 0.4 K/mm3 (0.1-0.6); Monocytes Percent Auto 8.3 % (2.6-8.5); Neutrophils Absolute Auto 2.7 K/mm3 (1.3-6.7); Neutrophils Percent Auto 52.9 % (45.5-73.1); Platelet Count Result 228 k/mm3 (150-375); Red Blood Count 3.19 M/mm3 (4.2-5.4); Red Cell Distribution Width 15.4 % (11.5-14.5)
[2023-04-17 12:13] LABS: Appearance Urine Clear (Clear); Bilirubin Urine Negative (Negative); Blood Urine Negative (Negative); Color Urine Yellow (Yellow); Glucose Urine UA Negative (Negative); Ketones Urine Negative (Negative); Leukocyte Esterase Ur Negative LEU/UL (Negative); Nitrate Urine Negative (Negative); Protein Urine Negative (Negative); Specific Grav Ur 1.014 (1.001-1.035); Urobilinogen Urine 0.2 mg/dL (<2.0); pH Urine 7.5 (5.0-9.0)
[2023-04-17 12:14] LABS: Add Urine Microscopic? NO
[2023-04-17 12:20] LABS: Alanine Aminotransferase 15 U/L (6-35); Albumin Level 3.3 g/dL (3.5-5.1); Alkaline Phosphatase 56 U/L (38-126); Anion Gap 7 mmol/L (8-16); Aspartate Amino Transferase 35 U/L (14-36); Bilirubin,Total 0.7 mg/dL (0.2-1.3); Blood Urea Nitrogen 8 mg/dL (7-17); Calcium 8.7 mg/dL (8.4-10.2); Carbon Dioxide 27 mmol/L (22-30); Chloride 95 mmol/L (98-107); Estimated CRCL calculation 34 ml/min; Estimated Glomerular Filt Rate 54; Glucose 88 mg/dL (65-110); Potassium 4.3 mmol/L (3.4-5.0); Sodium 129 mmol/L (137-145)
--- NOTE | 2023-04-17 12:27 | ED.GENADULT ---
HPI - General Adult General Chief complaint: Weakness Stated complaint: gen. weak x 1 week Time Seen by Provider: 04/17/23 12:00 History of Present Illness HPI narrative: Patient is 77-year-old female who presents to the emergency department at this afternoon accompanied by her friend and caregiver due to generalized weakness, loss of appetite, and inability to perform her activities of daily living. Patient's POA states that the patient was diagnosed with brain tumors, 2 of them, this past July and ever since then she has been gradually declining. Patient had a transsphenoidal removal of the frontal tumor at [facility], and has a scheduled MRI on May 17. Patient lives at home alone, and both her and her POA believe that she can no longer take care of herself and she does not have any 24 hour care which she needs. They are both open to options for chcf at this time. Patient denies any chest pain, shortness of breath, nausea, vomiting, abdominal pain, dysuria, hematuria, constipation, diarrhea, melena, hematochezia, fevers or chills. He also denies any headaches, dizziness, lightheadedness, blurry visions, dizziness, focal weakness, numbness and or tingling. There are no other modifying, alleviating, or precipitating factors at this time. Related Data Home Medications Medication Instructions Recorded Confirmed [id number] 1 tablet PO BID 03/19/19 04/07/23 750 mg-600 mg-30 mg-1mg-1.5mg tablet lutein 25 mg-zeaxanthin 5 mg 1 cap PO DAILY 03/19/19 04/07/23 capsule multivitamin 1 tablet PO DAILY 03/19/19 04/07/23 omega-3 fatty acids 1,000 mg 1,000 mg PO DAILY 03/08/20 04/07/23 capsule (Fish Oil Concentrate) levothyroxine 50 mcg tablet 50 mcg PO DAILY 04/07/23 04/07/23 Allergies Allergy/AdvReac Type Severity Reaction Status Date / Time Sulfa (Sulfonamide Allergy Unknown Unknown Verified 04/07/23 10:45 Antibiotics) Review of Systems Review of Systems: All systems are reviewed and are negative unless stated otherwise in the HPI. [facility] Past Medical History Medical History Benign essential hypertension Chronic anemia Chronic kidney disease Chronic sinusitis Gastroesophageal reflux disease Hearing loss Hyperlipidemia Hypertension Hypothyroidism Impaired glucose tolerance (oral) Iron deficiency anemia Osteoarthritis Reactive airway disease Seasonal allergies Surgical History Surgical History History of colonoscopy with polypectomy History of hysteroscopy (05/2003) With D&C and polypectomy for postmenopausal bleeding, pathology benign. History of ovarian cystectomy (1991) History of tonsillectomy (1974) Status post anal fissurectomy (1972) Family History Family History Father Diabetes mellitus Family history of cardiovascular disease Family history of diabetes mellitus in first degree relative Family history of heart disease in male family member before age 55 Cancer Hypertension Cerebrovascular accident Mother Family history of Alzheimer's disease Diabetes mellitus Hypertension Social History Social History Social History: Healthcare power of business attorney: Cathy Gray, friend. Code status: Full code. Smoking status: Never smoker Second hand tobacco smoke exposure: No Alcohol intake: never Substance use: never Substance use type: does not use Lack of Transportation: No Lack of Food: Never True Current Housing: I Have Housing Concerned About Future Housing: No Difficulty Paying Gas/Electric Bills: No Difficulty Paying for Meds: No Currently Unemployed: No Education: Bachelor's Degree Difficulty w/ Childcare or Family Care: No Living arrangements: alone Additional radha
[2023-04-17 13:24] LABS: T4 Thyroxine 1.92 ug/dL (5.53-11.0)
[2023-04-17 13:26] LABS: Influenza A QL RT-PCR Negative (Negative); Influenza B QL RT-PCR Negative (Negative); SARS-CoV-2 RNA PCR Negative (Negative)
--- NOTE | 2023-04-17 16:39 | PCCCNOTE ---
Request received that I speak with pt an POA regarding placement for pt as she was admitted last week with HH but has steadily declined at home. SHe was also receiving 24/7 care with [facility] but they are not nurses. Ascencion CRUM saw pt today and recommended she be brought to ED today D/T the decline. Both pt and POA request [facility] as first choice and [facility] as second. Approached the possibility that insurance might not authorize due to her diagnosis and her POA thought pt would private pay if they did as pt is no longer safe at home. Initial referral faxed including face sheet, POA paperwork and ER documentation. Calls placed to [facility], message left, and [facility] and spoke with Merle. They will have to wait for rest of required documentation before they can accept or run insurance auth. POA informed and ED provider informed that pt will require H&P and therapy evaluations prior to insurance auth being initiated.
--- NOTE | 2023-04-17 16:58 | PM.IMHP ---
H&P: HPI History of Present Illness Date/Time: 04/17/23 16:58 Chief Complaint: Weakness, decreased appetite and fatigue Narrative: This is a very pleasant 77-year-old female patient with significant past medical history of hypertension, hyperlipidemia, hypothyroidism, brain masses status post transsphenoidal removal of the frontal mass in due for next MRI May 17, [address] [facility] where she is followed by Neurology and Neurosurgery, that is brought to the emergency room for evaluation by her family. Patient's family is at the bedside and endorses that since her diagnosis of her brain masses in July of this year she has been gradually declining and has been unable to care for herself anymore, requiring 24 hour care. Patient was recently hospitalized here from April 07 to April 10 with acute kidney injury, weakness, chronic anemia and repeated falls as well as hypotension. She required IV hydration and was evaluated by PT and OT and did quite well according to the POA who is at the bedside. Patient had favorable hospitalization and was discharged home now 1 week ago. Since being home her POA notes that she has once again declined, has become very weak, sleeps a lot and has been unable to participate in her own daily care. Workup was performed in the emergency room and is notable for hemoglobin of 9.8 which is indirect correlation with her anemia. She is noted to have a sodium level of 129. Chloride is also low at 95. Otherwise renal function is preserved with a creatinine of 1.0 and BUN of 8. Her albumin remains low at 3.3, however it is increased as compared to albumin of April 10 that was 2.8. White blood cell count is normal. Her TSH is noted to be elevated at 8.690. This is however lower than it was 8 days ago at 9.30 and yet lower than it was in September of this year when it was 10.7. Her T4 is correlating low at 1.92. Her urine does not reflect any acute infection nor is she positive for COVID and/or influenza. Her chest x-ray demonstrated mild atelectasis in lower lung zones. The emergency room physician has discussed with POA the desire for possible placement as patient has become a 24 hour need for chronic caregiving. She is agreeable to this at this time. The emergency room physician has spoken with care coordination who acknowledges patient will need to be admitted at this time. We will admit her and monitor her as well as replace her sodium slowly and ensure her hydration as well as provide PT and OT consult. Patient did have 1 episode of emesis while I was in the emergency room. This will be managed with antiemetics. Patient denies any current complaints of pain, dyspnea and no other issues to report at this time. Discussion has been had with power of attorney general and patient and patient she is to be a full code at this time. At the time of admission home medications had not yet been confirmed. Review of Systems Review of Systems: All systems reviewed & are unremarkable except as noted in HPI and below [facility] Past Medical History Medical History (Updated 04/17/23 @ 17:20 by KELLE Kaye) Abnormality of gait and mobility Benign essential hypertension Chronic anemia Chronic kidney disease Chronic sinusitis Gastroesophageal reflux disease Hearing loss Hyperlipidemia Hypertension Hypothyroidism Impaired glucose tolerance (oral) Iron deficiency anemia Osteoarthritis Reactive airway disease Seasonal allergies Surgical History Surgical History History of colonoscopy with polypectomy History of hysteroscopy (05/2003) With D&C and polypectomy for postmenopausal bleeding, pathology benign. History of ovarian cystectomy (1991) History of tonsillectomy (1974) Status post anal fissurectomy (1972) Family History Family History Father Diabetes mellitus Family history of cardiovascular dis
[2023-04-17] MEDS: ENOXAPARIN 40 MG/0.4 ML SYRINGE SUB-Q (17:49)
--- NOTE | 2023-04-17 17:53 | ECG_ITS ---
Measurements Intervals [place] Rate: 82 P: -1 OR: 155 QRS: -50 QRSD: 124 T: 153 QT: 419 QTc: 492 Interpretive Statements SINUS RHYTHM VENTRICULAR PREMATURE COMPLEX LEFT AXIS DEVIATION RIGHT BUNDLE BRANCH BLOCK LOW VOLTAGE IN PRECORDIAL LEADS INFERIOR INFARCT, AGE INDETERMINATE ST-T WAVE ABNORMALITY IN ANTEROLAT/HIGH LAT LEADS- CONSIDER ISCHEMIA BASELINE ARTIFACT- I, II, III, AVR, AVL, AVF, V1 ABNORMAL ECG COMPARED TO ECG 04/17/2023 11:32:32 LEFT-AXIS DEVIATION NOW PRESENT Electronically Signed On 04-18-2023 8:26:17 FORTUNE COOKIE MAKER by Beka Esquivel D.O.
[2023-04-17 18:06] LABS: Troponin I 0.184 ng/mL (0.000-0.034)
--- NOTE | 2023-04-17 18:18 | PC.NURSE ---
Hospitalist aware of patient's troponin level.
--- NOTE | 2023-04-17 18:46 | ADMGEN ---
This patient, Renay Collado, was admitted to [facility] Surg Room 321-01. Patient/family oriented to hospital policies and general routines including ID bracelet, bed and alarms, visiting hours, pain management, procedures, bathroom and other care routines, personal items, smoking policy, room service/diet, and visiting hours. Information on how to activate the Rapid Response Team has been discussed. Patient/Family are encouraged to report perceived risks to care and to ask questions if they do not understand what they are told or what they should do.
--- NOTE | 2023-04-17 19:04 | PC.NURSE ---
received report from Lara RN in Er at 181, she stated hospitalist was notified of trop level 0.184, patient arrived on the floor at 183, received phone call from Enedina Nye at 190 to inform of possible NSTEMI, hep gtt needs started, will likely go to cardiac cath 04/18. Gave report to Ami LEE at 190, she is aware of order for heparin gtt and trop levels.
[2023-04-17 19:21] LABS: Basophils Percent Auto 0.4 % (0.2-1.2); Eosinophils Absolute Auto 0.3 K/mm3 (0-0.3); Eosinophils Percent Auto 5.9 % (0-4.4); Hematocrit 28.8 % (37.0-47.0); Hemoglobin 9.1 g/dL (12.0-15.0); Immature Granulocyte Absolute 0.03 K/mm3 (0.00-0.031); Immature Granulocyte Percent A 0.5 % (0-0.5); Lymphocytes Percent Auto 31.9 % (18.3-44.2); Mean Corpuscular HGB Conc 31.6 g/dl (32-36); Mean Corpuscular Hemoglobin 30.6 pg (26-34); Mean Platelet Volume 12.6 fl (7.4-10.4); Monocytes Absolute Auto 0.5 K/mm3 (0.1-0.6); Monocytes Percent Auto 8.5 % (2.6-8.5); Neutrophils Percent Auto 52.8 % (45.5-73.1); Platelet Count Result 220 k/mm3 (150-375); Red Blood Count 2.97 M/mm3 (4.2-5.4); Red Cell Distribution Width 15.4 % (11.5-14.5); White Blood Count 5.6 K/mm3 (4.5-10.0)
[2023-04-17 19:31] LABS: Prothrombin Time 13.4 Seconds (11.1-14.7)
[2023-04-17] MEDS: HEPARIN SOD/D5W 100 UNITS/ML 25,000 UNITS/250 ML BAG 6 UNITS IV CONT (19:56)
--- NOTE | 2023-04-17 19:56 | ECG_ITS ---
Measurements Intervals [place] Rate: 86 P: -12 MA: 159 QRS: -66 QRSD: 83 T: 151 QT: 383 QTc: 461 Interpretive Statements SINUS RHYTHM LEFT AXIS DEVIATION LOW QRS VOLTAGE IN PRECORDIAL LEADS INFERIOR INFARCT, AGE INDETERMINATE ST-T WAVE ABNORMALITY IN ANTEROLAT/HIGH LAT LEADS- CONSIDER ISCHEMIA BASELINE ARTIFACT- I, II, III, AVR, AVL, AVF, V2, V4 ABNORMAL ECG COMPARED TO ECG 04/17/2023 11:32:32 NO SIGNIFICANT CHANGES Electronically Signed On 04-18-2023 5:53:22 LOADERS by Beka Esquivel D.O.
--- NOTE | 2023-04-17 20:05 | PC.NURSE ---
2 unsuccessful attempts at 2nd PIV Charge nurse to attempt
--- NOTE | 2023-04-17 21:00 | PC.NURSE ---
This patient, Renay Collado, was received from [[phone] ] on 04/17/23 at [id number]. Patient/family oriented to unit policies and routines
[2023-04-17] MEDS: SODIUM CHLORIDE 0.9% IV 1,000 ML 100 ML IV CONT (22:01)
[2023-04-17 22:17] LABS: Sodium Urine Random 186 meq/L
[2023-04-18] VITALS (14 sets, daily range): BP systolic 94–112; BP diastolic 56–64; PULSE 69–84; RESP 16–40; TEMP 35.9–36.5; O2SAT 96–100
--- NOTE | 2023-04-18 | ECHO_ITS ---
Patient Info Name: Renay Collado Age: 77 years : 1945 Gender: Female Ht: 62 in Wt: 111 lbs BSA: 1.48 m2 HR: 69 bpm BP: 100 / 56 mmHg Heart Rhythm: Sinus Rhythm Technical Quality: Good Exam Date: 04/18/2023 8:31 AM Exam Location: Echo Lab Patient Status: Inpatient Admit Date: 04/17/2023 Staff Ordering Physician: Enedina Andersen Community Development Planner: Olivia Arevalo RDCS Attending Provider: Kely Baron DO Referring Physician: Ganesh LIGHT; Exam Type: CA echo doppler color flow Study Info Indications - NSTEMI Complete two-dimensional, color flow and Doppler transthoracic echocardiogram is performed. Summary 1. Complete two-dimensional, color flow and Doppler transthoracic echocardiogram is performed. 2. Left ventricular hypertrophy with mild systolic dysfunction and grade 1 diastolic noncompliance. 3. Visually estimated ejection fraction about 40%. 4. Mildly sclerotic aortic valve with no stenosis and modest AI. 5. Compared with study from July of this year no significant change. Left Ventricle Left ventricular chamber dimension is normal. Left ventricular systolic function is mildly reduced, estimated at 40-45%. There is moderate concentric increased left ventricular wall thickness. The left ventricular diastolic function is grade I diastolic dysfunction. Right Ventricle Right ventricular chamber dimension is normal. Left Atria Left atrial chamber dimension is mildly enlarged. Right Atria Right atrial chamber dimension is normal. Aortic Valve The aortic valve is trileaflet. There is mild aortic valve sclerosis. There is mild aortic valve regurgitation. Pulmonic Valve The pulmonic valve is not well visualized. There is trace pulmonic regurgitation. Mitral Valve The mitral valve has normal leaflets. Tricuspid Valve The tricuspid valve leaflets are normal. There is trace tricuspid valve regurgitation. Pericardium/Pleural The pericardium appears normal. Aorta The aortic root size at the sinus of Valsalva is normal. Left Ventricular Outflow Tract Name Value Normal LVOT 2D LVOT Diameter 1.9 cm LVOT Doppler LVOT Peak Gradient 2 mmHg LVOT Mean Gradient 1 mmHg LVOT VTI 12 cm LVOT VTI/AV VTI Ratio 0.5 LVOT Stroke Volume 35 ml LVOT CO 2.7 l/min LVOT CI 1.8 l/min/m2 Pulmonic Valve Name Value Normal RVOT Doppler RVOT Peak Gradient 2 mmHg PV Doppler PV Peak Gradient 2 mmHg Mitral Valve Name Value Normal
[2023-04-18 03:17] LABS: Glucose Point of Care 76 mg/dl (65-105)
[2023-04-18 03:31] LABS: Partial Thromboplastin Time 183.8 SECONDS (22.3-36.8)
[2023-04-18 03:32] LABS: Anion Gap 6 mmol/L (8-16); Blood Urea Nitrogen 6 mg/dL (7-17); Carbon Dioxide 19 mmol/L (22-30); Chloride 99 mmol/L (98-107); Estimated CRCL calculation 42 ml/min; Estimated Glomerular Filt Rate > 60; Glucose 73 mg/dL (65-110); Potassium 3.9 mmol/L (3.4-5.0); Sodium 124 mmol/L (137-145)
[2023-04-18 03:49] LABS: Basophils Percent Auto 0.5 % (0.2-1.2); Eosinophils Absolute Auto 0.3 K/mm3 (0-0.3); Eosinophils Percent Auto 5.3 % (0-4.4); Hemoglobin 9.4 g/dL (12.0-15.0); Immature Granulocyte Absolute 0.03 K/mm3 (0.00-0.031); Immature Granulocyte Percent A 0.5 % (0-0.5); Lymphocytes Absolute Auto 2.08 K/mm3 (0.9-3.2); Mean Corpuscular HGB Conc 31.3 g/dl (32-36); Mean Platelet Volume 11.9 fl (7.4-10.4); Monocytes Absolute Auto 0.5 K/mm3 (0.1-0.6); Monocytes Percent Auto 8.6 % (2.6-8.5); Neutrophils Absolute Auto 2.6 K/mm3 (1.3-6.7); Neutrophils Percent Auto 47.1 % (45.5-73.1); Platelet Count Result 211 k/mm3 (150-375); Red Blood Count 3.03 M/mm3 (4.2-5.4); Red Cell Distribution Width 15.2 % (11.5-14.5); White Blood Count 5.5 K/mm3 (4.5-10.0)
--- NOTE | 2023-04-18 05:00 | ECG_ITS ---
Measurements Intervals [place] Rate: 85 P: -6 HI: 159 QRS: -66 QRSD: 80 T: 0 QT: 180 QTc: 214 Interpretive Statements SINUS RHYTHM INCOMPLETE RIGHT BUNDLE BRANCH BLOCK LOW QRS VOLTAGE IN PRECORDIAL LEADS INFERIOR INFARCT, AGE INDETERMINATE ANTEROSEPTAL INFARCT, AGE INDETERMINATE ST-T WAVE ABNORMALITY IN ANTEROLAT/HIGH LAT LEADS- CONSIDER ISCHEMIA BASELINE ARTIFACT- I, II, V1 ABNORMAL ECG COMPARED TO ECG 04/17/2023 20:47:27 NO SIGNIFICANT CHANGES Electronically Signed On 04-18-2023 11:44:54 WELLNESS SPA MANAGER by Beka Esquivel D.O.
--- NOTE | 2023-04-18 09:58 | PM.CNCAR ---
Assessment and Plan Assessment and plan (1) Brain mass: Code(s): G93.89 - Other specified disorders of brain Status: Chronic (2) ST segment changes on electrocardiogram: Code(s): R94.31 - Abnormal electrocardiogram [ECG] [EKG] Status: Acute Plan This is a 77-year-old lady presenting to the hospital with generalized weakness inability to ambulate and poor appetite and found to have anterior precordial T-wave inversions and a modestly elevated troponin which is flat. For these reasons she was labeled with the diagnosis of non ST elevation PA and apparently started on heparin. Without any clinical complaints or presentation compatible with ACS I am not sure that I would agree with the diagnosis of non ST elevation PA. it is possible that her T-wave abnormalities have to do with space-occupying lesion in the cranium. It is also a certain possibility that she could have an episode of takotsubo stress cardiomyopathy given her other significant illness that is been going on for about 6 months. She at this point in my opinion is not a patient that I would bring to the cardiac catheterization lab for angiographic assessment given her serious comorbidities. An echocardiogram will likely she had some light on this in terms of wall motion abnormalities that might be compatible with takotsubo. I will leave further recommendations after the echocardiographic findings have been reviewed. At this point I would discontinue IV heparin unless there is some noncardiac reason for her to be anticoagulated. Rodrigo Warren MD [facility] History of Present Illness History of Present Illness Consult date/time: 04/18/23 09:58 Reason For Visit: Inability to Ambulate,PT/OT Narrative: This is a 77-year-old woman I am seeing today at the request of the hospitalist with the stated reason for consultation being non ST-elevation PA. Patient has no history of cardiac disease and as best as I can tell no cardiovascular complaints. She came to the hospital yesterday because of generalized weakness, inability to stand and ambulate independently poor p.o. intake and extreme fatigue. The patient has been in poor health for the last 6-7 months it looks like earlier this year she was been found to have couple of brain masses. She came to this hospital and was transferred to [facility] to the neurosurgery service. She has been under the care physicians at [facility] since then. The patient's neighbor/power of employment law attorney who provides most of the history states that she had a transsphenoidal resection of a frontal brain mass back in July of this year. They can not tell me what the nature of the mass was and she also has apparently a posterior fossa mass as well. She has follow-up scheduled with neurosurgery next month for further consultation regarding that. She was hospitalized here just last week with symptoms of generalized weakness again she was felt to be dehydrated and possibly have a urinary tract infection she was rehydrated and treated with antibiotics and discharged late last week. She comes back to the hospital again yesterday with symptoms of worsening fatigue weakness as detailed above. She is not having any sense of chest pain pressure or heaviness there is no significant dyspnea or any event that would clinically sound like an acute coronary syndrome. Her electrocardiogram does show some significant changes she has a sinus rhythm with right bundle branch block as a baseline. She now has anterior precordial T-wave inversions which were not seen on previous ECG. Her troponin levels are sampled and they are slightly elevated but essentially flat at 0.2. In this setting she is being seen in consultation she is resting in her bed in room 200 and a heparin drip is running and there is no other pertinent history that I am aware of. An echocardiogram has been ordered by the primary team which has yet to be performed as of this consul
[2023-04-18 10:05] LABS: Partial Thromboplastin Time 68.1 SECONDS (22.3-36.8)
[2023-04-18 10:06] LABS: Anion Gap 9 mmol/L (8-16); Blood Urea Nitrogen 6 mg/dL (7-17); Carbon Dioxide 19 mmol/L (22-30); Chloride 98 mmol/L (98-107); Estimated CRCL calculation 42 ml/min; Estimated Glomerular Filt Rate > 60; Glucose 77 mg/dL (65-110); Sodium 126 mmol/L (137-145)
--- NOTE | 2023-04-18 11:50 | P.PNIM_ITS ---
Progress Note: A&P Assessment and Plan (1) Abnormality of gait and mobility: Code(s): R26.9 - Unspecified abnormalities of gait and mobility Status: Acute Assessment and Plan: * As evidenced by frequent falls in the setting of chronic weakness secondary to brain masses. * Fall precautions * Consult PT and OT * Care coordination consult for placement (2) Hyponatremia: Code(s): E87.1 - Hypo-osmolality and hyponatremia Status: Acute Assessment and Plan: * 04/18/2023 patient's sodium dropped to 124 and her IV fluids were discontinued. Repeat sodium of 126. * Patient may have regular diet. * Urine osmolalities and serum osmolality is ordered. * Urine sodium and creatinine ordered * Continue to trend sodium (3) ST segment changes on electrocardiogram: Code(s): R94.31 - Abnormal electrocardiogram [ECG] [EKG] Status: Acute Assessment and Plan: * Suggestion of new ST changes on EKG from today as compared to EKG from 1 week ago. Patient asymptomatic of any chest pain or other signs or symptoms of ACS. * Telemetry * Troponin came back elevated although remained flat. Cardiology consulted . * Patient was originally started on heparin but this has since been discontinued due to Cardiology recommendations. * Echocardiogram ordered. (4) Weakness: Code(s): R53.1 - Weakness Status: Acute Assessment and Plan: * See problem 1 (5) Brain mass: Code(s): G93.89 - Other specified disorders of brain Status: Chronic Assessment and Plan: * Patient currently being followed by neurosurgery and neurology team at [facility]. * She is due for MRI of the brain mid May. POA notes she will follow up with them. (6) Falls frequently: Code(s): R29.6 - Repeated falls Status: Acute Assessment and Plan: * Etiology secondary to brain masses versus acute dehydration versus weakness * PT and OT are consulted. * Patient placed on fall precautions. (7) Hypochloremia: Code(s): E87.8 - Other disorders of electrolyte and fluid balance, not elsewhere classified Status: Resolved Assessment and Plan: * See problem 5. * Suspect mild dehydration (8) Hypothyroidism: Code(s): E03.9 - Hypothyroidism, unspecified Status: Chronic Assessment and Plan: * Slowly improving as compared to to most recent lab checks TSH and T4. * Continue supplementation once home medications have been reviewed. Subjective Date/time seen: 04/18/23 11:50 Interval history: Patient denies any chest pain, shortness a breath, nausea, vomiting, dizziness, body aches or chills. She does appear to be a poor historian is alert and oriented to self and place. She was admitted for placement although sodium is very low. Care coordination consulted for placement. Exam Narrative: GENERAL: Comfortable, no acute distress HENMT: moist mucous membranes EYES: EOM intact b/l NECK: no lymphadenopathy RESPIRATORY: clear to auscultation CARDIO: RRR GI: soft, nontender, bowel sounds present SKIN: no rashes EXTREMITIES: no edema, redness or tenderness Objective Data Vital Signs Vital Signs: Vital Signs - 24 hr 04/17/23 12:00 04/17/23 12:
--- NOTE | 2023-04-18 11:50 | PM.IMPN ---
Progress Note: A&P Assessment and Plan (1) Abnormality of gait and mobility: Code(s): R26.9 - Unspecified abnormalities of gait and mobility Status: Acute Assessment and Plan: As evidenced by frequent falls in the setting of chronic weakness secondary to brain masses. Fall precautions Consult PT and OT Care coordination consult for placement (2) Hyponatremia: Code(s): E87.1 - Hypo-osmolality and hyponatremia Status: Acute Assessment and Plan: 04/18/2023 patient's sodium dropped to 124 and her IV fluids were discontinued. Repeat sodium of 126. Patient may have regular diet. Urine osmolalities and serum osmolality is ordered. Urine sodium and creatinine ordered Continue to trend sodium (3) ST segment changes on electrocardiogram: Code(s): R94.31 - Abnormal electrocardiogram [ECG] [EKG] Status: Acute Assessment and Plan: Suggestion of new ST changes on EKG from today as compared to EKG from 1 week ago. Patient asymptomatic of any chest pain or other signs or symptoms of ACS. Telemetry Troponin came back elevated although remained flat. Cardiology consulted . Patient was originally started on heparin but this has since been discontinued due to Cardiology recommendations. Echocardiogram ordered. (4) Weakness: Code(s): R53.1 - Weakness Status: Acute Assessment and Plan: See problem 1 (5) Brain mass: Code(s): G93.89 - Other specified disorders of brain Status: Chronic Assessment and Plan: Patient currently being followed by neurosurgery and neurology team at [facility]. She is due for MRI of the brain mid May. POA notes she will follow up with them. (6) Falls frequently: Code(s): R29.6 - Repeated falls Status: Acute Assessment and Plan: Etiology secondary to brain masses versus acute dehydration versus weakness PT and OT are consulted. Patient placed on fall precautions. (7) Hypochloremia: Code(s): E87.8 - Other disorders of electrolyte and fluid balance, not elsewhere classified Status: Resolved Assessment and Plan: See problem 5. Suspect mild dehydration (8) Hypothyroidism: Code(s): E03.9 - Hypothyroidism, unspecified Status: Chronic Assessment and Plan: Slowly improving as compared to to most recent lab checks TSH and T4. Continue supplementation once home medications have been reviewed. Subjective Date/time seen: 04/18/23 11:50 Interval history: Patient denies any chest pain, shortness a breath, nausea, vomiting, dizziness, body aches or chills. She does appear to be a poor historian is alert and oriented to self and place. She was admitted for placement although sodium is very low. Care coordination consulted for placement. Exam Narrative: GENERAL: Comfortable, no acute distress HENMT: moist mucous membranes EYES: EOM intact b/l NECK: no lymphadenopathy RESPIRATORY: clear to auscultation CARDIO: RRR GI: soft, nontender, bowel sounds present SKIN: no rashes EXTREMITIES: no edema, redness or tenderness Objective Data Vital Signs Vital Signs: Vital Signs - 24 hr 04/17/23 12:00 04/17/23 12:30 04/17/23 14:00 Temperature Pulse Rate 78 78 79 Respiratory Rate 17 18 12 Blood Pressure 124/70 114/65 129/71 Pulse Oximetry 97 98 97 Oxygen Delivery 04/17/23 17:41 04/17/23 18:37 04/17/23 21:11 Temperature 98.3 F Pulse Rate 80 89 Respiratory Rate 20 18 Blood Pressure 117/65 Pulse Oximetry 97 98 Oxygen Delivery Room Air 04/17/23 21:00 04/17/23 23:03 04/18/23 00:00 Temperature 97.7 F Pulse Rate 83 Respiratory Rate 18 Blood Pressure 123/72 Pulse Oximetry 100 Oxygen Delivery Room Air Room Air 04/17/23 20:00 04/18/23 00:00 04/17/23 22:00 Temperature Pulse Rate 86 80 81 Respiratory Rate
[2023-04-18 17:14] LABS: Partial Thromboplastin Time 136.9 SECONDS (22.3-36.8)
[2023-04-18 17:17] LABS: Anion Gap 6 mmol/L (8-16); Blood Urea Nitrogen 6 mg/dL (7-17); Calcium 8.3 mg/dL (8.4-10.2); Carbon Dioxide 22 mmol/L (22-30); Chloride 98 mmol/L (98-107); Estimated CRCL calculation 42 ml/min; Estimated Glomerular Filt Rate > 60; Glucose 78 mg/dL (65-110); Potassium 4.3 mmol/L (3.4-5.0); Sodium 126 mmol/L (137-145)
[2023-04-19] VITALS (10 sets, daily range): BP systolic 96–105; BP diastolic 50–62; PULSE 62–92; RESP 16–18; TEMP 35.9–36.6; O2SAT 97–99
[2023-04-19 05:22] LABS: Hematocrit 26.1 % (37.0-47.0); Hemoglobin 8.5 g/dL (12.0-15.0); Mean Corpuscular HGB Conc 32.6 g/dl (32-36); Mean Corpuscular Hemoglobin 31.1 pg (26-34); Mean Corpuscular Volume 95.6 fl (80-100); Mean Platelet Volume 12.3 fl (7.4-10.4); Platelet Count Result 193 k/mm3 (150-375); Red Blood Count 2.73 M/mm3 (4.2-5.4); Red Cell Distribution Width 14.9 % (11.5-14.5); White Blood Count 4.4 K/mm3 (4.5-10.0)
[2023-04-19 05:25] LABS: Alanine Aminotransferase 13 U/L (6-35); Albumin Level 2.7 g/dL (3.5-5.1); Alkaline Phosphatase 50 U/L (38-126); Anion Gap 6 mmol/L (8-16); Aspartate Amino Transferase 34 U/L (14-36); Bilirubin,Total 0.7 mg/dL (0.2-1.3); Blood Urea Nitrogen 6 mg/dL (7-17); Calcium 7.9 mg/dL (8.4-10.2); Carbon Dioxide 19 mmol/L (22-30); Chloride 100 mmol/L (98-107); Estimated CRCL calculation 42 ml/min; Estimated Glomerular Filt Rate > 60; Potassium 4.2 mmol/L (3.4-5.0); Sodium 125 mmol/L (137-145)
[2023-04-19 05:33] LABS: Glucose 58 mg/dL (65-110)
[2023-04-19] MEDS: DEXTROSE 50% 25 GM/50 ML SYRINGE IV PUSH (05:45)
[2023-04-19 06:14] LABS: Glucose Point of Care 197 mg/dl (65-105)
[2023-04-19 06:14] LABS: Glucose Point of Care 57 mg/dl (65-105)
--- NOTE | 2023-04-19 09:04 | PC.NURSE ---
Updated Cathy EDGE, with plan of care.
--- NOTE | 2023-04-19 09:21 | P.PNIM_ITS ---
Progress Note: A&P Assessment and Plan (1) Abnormality of gait and mobility: Code(s): R26.9 - Unspecified abnormalities of gait and mobility Status: Acute Assessment and Plan: * As evidenced by frequent falls in the setting of chronic weakness secondary to brain masses. * Fall precautions * Appreciate PT and OT eval * Care coordination consult for placement (2) Hyponatremia: Code(s): E87.1 - Hypo-osmolality and hyponatremia Status: Acute Assessment and Plan: * Sodium is chronically low, likely related to brain tumors * Na is 125 today; remaining stable. Continue to trend - will recheck this afternoon. * Continue regular diet. * Patient is asymptomatic at this time. (3) ST segment changes on electrocardiogram: Code(s): R94.31 - Abnormal electrocardiogram [ECG] [EKG] Status: Acute Assessment and Plan: * Suggestion of new ST changes on EKG from admission as compared to EKG from 1 week ago. Patient asymptomatic of any chest pain or other signs or symptoms of ACS. * Continue to monitor on telemetry; noted to be in normal sinus rhythm today * Troponins elevated with flat trend * Appreciate cardiology consultation: heparin has been discontinued based on recommendations * Echocardiogram completed with no evidence of wall motion abnormalities or any significant change from prior Echo in 08/22. Will await further recs from cardiology pending their assessment of echo * Not a candidate for cardiac catheterization given her comorbidities, therefore can advance diet (4) Weakness: Code(s): R53.1 - Weakness Status: Acute Assessment and Plan: * Likely related to brain mass. Appreciate PT/OT as above. Planning for placement. (5) Brain mass: Code(s): G93.89 - Other specified disorders of brain Status: Chronic Assessment and Plan: * Patient currently being followed by neurosurgery and neurology team at [facility]. * She is due for MRI of the brain mid May. POA notes she will follow up with them. (6) Falls frequently: Code(s): R29.6 - Repeated falls Status: Acute Assessment and Plan: * Etiology secondary to brain masses versus acute dehydration versus weakness * PT and OT are consulted. * Patient placed on fall precautions. (7) Hypothyroidism: Code(s): E03.9 - Hypothyroidism, unspecified Status: Chronic Assessment and Plan: * TSH is elevated at 8.8 * Will need repeat labs as outpatient in several weeks * Continue home levothyroxine at current dose for now (8) Hypoglycemia: Code(s): E16.2 - Hypoglycemia, unspecified Status: Acute Assessment and Plan: * Suspect due to prolonged NPO diet * No history of diabetes and not receiving insulin or other hypoglycemic agents * Blood sugar improved with implementation of hypoglycemic protocol * Diet has been advanced. * Continue to monitor glucose closely Subjective Date/time seen: 04/19/23 09:21 Interval history: Date of service: 04/19/2023 Patient is feeling well today. She offers no complaints. She is only a fair historian. Denies chest pain or palpitations. No nausea, vomiting, fever, chills. No shortness of breath, cough, chest pain. Denies urinary symptoms. She has been NPO, will advance her diet and ensure she is tolerating. Review of Systems Revi
--- NOTE | 2023-04-19 09:21 | PM.IMPN ---
Progress Note: A&P Assessment and Plan (1) Abnormality of gait and mobility: Code(s): R26.9 - Unspecified abnormalities of gait and mobility Status: Acute Assessment and Plan: As evidenced by frequent falls in the setting of chronic weakness secondary to brain masses. Fall precautions Appreciate PT and OT eval Care coordination consult for placement (2) Hyponatremia: Code(s): E87.1 - Hypo-osmolality and hyponatremia Status: Acute Assessment and Plan: Sodium is chronically low, likely related to brain tumors Na is 125 today; remaining stable. Continue to trend - will recheck this afternoon. Continue regular diet. Patient is asymptomatic at this time. (3) ST segment changes on electrocardiogram: Code(s): R94.31 - Abnormal electrocardiogram [ECG] [EKG] Status: Acute Assessment and Plan: Suggestion of new ST changes on EKG from admission as compared to EKG from 1 week ago. Patient asymptomatic of any chest pain or other signs or symptoms of ACS. Continue to monitor on telemetry; noted to be in normal sinus rhythm today Troponins elevated with flat trend Appreciate cardiology consultation: heparin has been discontinued based on recommendations Echocardiogram completed with no evidence of wall motion abnormalities or any significant change from prior Echo in 08/22. Will await further recs from cardiology pending their assessment of echo Not a candidate for cardiac catheterization given her comorbidities, therefore can advance diet (4) Weakness: Code(s): R53.1 - Weakness Status: Acute Assessment and Plan: Likely related to brain mass. Appreciate PT/OT as above. Planning for placement. (5) Brain mass: Code(s): G93.89 - Other specified disorders of brain Status: Chronic Assessment and Plan: Patient currently being followed by neurosurgery and neurology team at [facility]. She is due for MRI of the brain mid May. POA notes she will follow up with them. (6) Falls frequently: Code(s): R29.6 - Repeated falls Status: Acute Assessment and Plan: Etiology secondary to brain masses versus acute dehydration versus weakness PT and OT are consulted. Patient placed on fall precautions. (7) Hypothyroidism: Code(s): E03.9 - Hypothyroidism, unspecified Status: Chronic Assessment and Plan: TSH is elevated at 8.8 Will need repeat labs as outpatient in several weeks Continue home levothyroxine at current dose for now (8) Hypoglycemia: Code(s): E16.2 - Hypoglycemia, unspecified Status: Acute Assessment and Plan: Suspect due to prolonged NPO diet No history of diabetes and not receiving insulin or other hypoglycemic agents Blood sugar improved with implementation of hypoglycemic protocol Diet has been advanced. Continue to monitor glucose closely Subjective Date/time seen: 04/19/23 09:21 Interval history: Date of service: 04/19/2023 Patient is feeling well today. She offers no complaints. She is only a fair historian. Denies chest pain or palpitations. No nausea, vomiting, fever, chills. No shortness of breath, cough, chest pain. Denies urinary symptoms. She has been NPO, will advance her diet and ensure she is tolerating. Review of Systems Review of Systems: All systems reviewed & are unremarkable except as noted in HPI and below Exam Narrative: General: Then, well-appearing 77-year-old female, supine in bed, comfortable, NARD Neuro: awake, alert and oriented x3, speech clear, no focal neuro deficits noted HEENMT: normocephalic, atraumatic, EOMI, sclerae anicteric Respiratory: clear to auscultation bilaterally, nonlabored breathing Cardio: regular rate, regular rhythm with S1-S2 Abdomen: nondistended, normoactive bowel sounds, soft, nontender to palpation Extremities: no
[2023-04-19 11:15] LABS: Sodium 126 mmol/L (137-145)
--- NOTE | 2023-04-19 13:56 | PM.PNCARD ---
Progress Note: A&P Assessment and Plan (1) Abnormal EKG: Code(s): R94.31 - Abnormal electrocardiogram [ECG] [EKG] Status: Acute Assessment and Plan: Patient was admitted with falls and weakness and found to have an abnormal EKG as well as elevated troponins up to 0.2. There was no chest pain or other symptomatology to suggest an acute coronary event. She has had anterior lateral T-wave inversion previously although these changes are low bit more pronounced. Thought to be nonspecific, perhaps due to her central nervous system problems. No further cardiac DANIELS recommended. (2) Elevated troponin: Code(s): R79.89 - Other specified abnormal findings of blood chemistry Status: Acute Assessment and Plan: As above, peak 0.2, no ACS clinically. (3) Cardiomyopathy: Code(s): I42.9 - Cardiomyopathy, unspecified Status: Acute Assessment and Plan: EF has run 45-50% on past Echos, now down to 40%. No CHF. BP too low for any tx directed at her cardiomyopathy at this time. (4) Brain mass: Code(s): G93.89 - Other specified disorders of brain Status: Chronic (5) Falls frequently: Code(s): R29.6 - Repeated falls Status: Acute (6) Chronic anemia: Code(s): D64.9 - Anemia, unspecified Status: Acute (7) Hyponatremia: Code(s): E87.1 - Hypo-osmolality and hyponatremia Status: Acute Plan Cardiology will sign off; please call if we can be of any assistance. Subjective Date/time seen: 04/19/23 13:56 Interval history: Follow-up for elevated troponins and EKG changes. Admitted with generalized weakness and frequent falls. History of brain masses and hypokalemia. 04/18/2023: Recommended discontinuing heparin. No aggressive cardiac intervention. Check echo. Date of service 04/19/2023: Pt w/o complaints. Ph Therapy thought patient did fairly well but has some left-sided neglect. Systolic blood pressure occasionally in the 90s. Hematocrit declined a little to 26. Nothing in Epic or Care Everywhere relevant or recent. Telemetry: NSR 04/2023 echo: EF 40%, LVH, diastolic dysfunction, modest aortic insufficiency. 07/2022 Echo: Mild LV dysfunction EF 45-50% Review of Systems Review of Systems: No CP, SOB, abdom pain, dizziness. Fatigues easily. Exam Const: General: cooperative, healthy appearing and comfortable; No confusion Orientation/consciousness: oriented to person, patient oriented x3 and No confusion Other: Elderly lady curled up in a ball in bed, cooperative and pleasant HENMT: Mouth: Yes moist mucous membranes Eyes: General: appearance normal, both eyes and all related structures Neck: Neck: supple Resp: Effort & Inspection: normal respiratory effort Auscultation: clear to auscultation bilaterally Cardio: Rate: regular rate Rhythm: regular rhythm GI: Inspection: normal to inspection GI Palp: No abdominal tenderness Skin: General skin exam: normal color Neuro: General: oriented to person, patient oriented x3 and No confusion Extrem: Right lower extremity: no edema Left lower extremity: no edema Psych: Appearance: grossly normal Mental Status: mental status grossly normal Objective Data Vital Signs Vital Signs: Vital Signs - 24 hr 04/18/23 15:22 04/18/23 16:00 04/18/23 20:00 Temperature 97.1 F L Pulse Rate 80 80 Respiratory Rate 16 Blood Pressure 112/61 Pulse Oximetry 98 Oxygen Delivery Room Air 04/18/23 20:53 04/19/23 00:01 04/18/23 20:00 Temperature 96.7 F L 96.7 F L Pulse Rate 72 71 71 Respiratory Rate 18 18 Blood Pressure 98/64 L 104/62 Pulse Oximetry 98 98 Oxygen Delivery 04/19/23 00:00 04/19/23 04:00 04/19/23 07:15 Temperature 97.8 F Pulse Rate 92 63 70 Respiratory Rate 18 Blood Pressure 96/52 L Pulse Oximetry 99 Oxygen Delivery 04/19/23 08:00 04/19/23 08:00 04/19/23 10:21 Temperature Pulse Rate 62
[2023-04-19] MEDS: HYDROcodone/acetaminophen (*CRX) 5-325 MG TABLET 1 TAB PO (16:55)
[2023-04-19 19:30] LABS: Sodium 124 mmol/L (137-145)
[2023-04-20] VITALS (8 sets, daily range): BP systolic 105–115; BP diastolic 52–82; PULSE 63–84; RESP 14–18; TEMP 36.2–36.8; O2SAT 95–100
--- NOTE | 2023-04-20 00:43 | PC.NURSE ---
This patient, Renay Collado, was transferred to [facility] on 04/20/23 at 0044. Personal belongings sent with patient. Report given to JESUS Reese. Appropriate documentation sent with patient.
[2023-04-20 06:17] LABS: Anion Gap 4 mmol/L (8-16); Blood Urea Nitrogen 4 mg/dL (7-17); Calcium 8.1 mg/dL (8.4-10.2); Carbon Dioxide 23 mmol/L (22-30); Chloride 99 mmol/L (98-107); Estimated CRCL calculation 37 ml/min; Estimated Glomerular Filt Rate > 60; Glucose 66 mg/dL (65-110); Potassium 4.5 mmol/L (3.4-5.0); Sodium 126 mmol/L (137-145)
[2023-04-20 06:19] LABS: Hemoglobin 8.8 g/dL (12.0-15.0); Mean Corpuscular HGB Conc 31.4 g/dl (32-36); Mean Corpuscular Hemoglobin 31.3 pg (26-34); Mean Corpuscular Volume 99.6 fl (80-100); Mean Platelet Volume 12.2 fl (7.4-10.4); Platelet Count Result 205 k/mm3 (150-375); Red Blood Count 2.81 M/mm3 (4.2-5.4); White Blood Count 3.7 K/mm3 (4.5-10.0)
[2023-04-20 06:52] LABS: Glucose Point of Care 77 mg/dl (65-105)
[2023-04-20] MEDS: ENOXAPARIN 40 MG/0.4 ML SYRINGE SUB-Q (08:52)
--- NOTE | 2023-04-20 14:36 | PM.IMPN ---
Progress Note: A&P Assessment and Plan (1) Abnormality of gait and mobility: Code(s): R26.9 - Unspecified abnormalities of gait and mobility Status: Acute (2) Hyponatremia: Code(s): E87.1 - Hypo-osmolality and hyponatremia Status: Acute (3) ST segment changes on electrocardiogram: Code(s): R94.31 - Abnormal electrocardiogram [ECG] [EKG] Status: Acute (4) Weakness: Code(s): R53.1 - Weakness Status: Acute (5) Brain mass: Code(s): G93.89 - Other specified disorders of brain Status: Chronic (6) Falls frequently: Code(s): R29.6 - Repeated falls Status: Acute (7) Hypothyroidism: Code(s): E03.9 - Hypothyroidism, unspecified Status: Chronic (8) Hypoglycemia: Code(s): E16.2 - Hypoglycemia, unspecified Status: Acute Plan 77-year-old female presented with generalized weakness loss of appetite and inability to perform her activities of daily living. Patient was diagnosed with brain tumors July 2022 after which she has declined patient had a transsphenoidal removal of the frontal tumor at [facility]. She is scheduled to get an MRI repeat on May 17. Patient has 247 care at home. The ED evaluation revealed some EKG abnormalities. Hemoglobin of 9.8 which is around baseline. Sodium of 129 TSH of 8.6 UA revealed no evidence of UTI. Chest x-ray was negative. Initially was admitted for placement and PT OT evaluation. Recent admission with recurrent falls RONA and dehydration. 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 CT chest negative for any acute process or malignancy. CT abdomen pelvis also showed no evidence of malignancy other than left inguinal hernia and cholelithiasis without acute cholecystitis. Upon admission she was noted to have elevated troponin of 0.184 patient was started on heparin drip. Cardiology was consulted. Serial troponin 0.184-0.21 0-0.21 flat trend Echo EF 40% LVH diastolic dysfunction modest aortic insufficiency. In July 2022 her EF was 45-50%. Chronic anemia stable no signs of bleeding Hyponatremia acute on chronic baseline around 1 30s presented with 129 dip down to 124 and started to come up. Could be related to her poor p.o. intake. Looks euvolemic on examination today. Hypoglycemia intermittently likely related to poor p.o. intake as well patient is not a diabetic and not on any hypoglycemic agents. With her suprasellar/sellar mass possible adrenal insufficiency is there. Will check her cortisol level Subjective Date/time seen: 04/20/23 14:36 Interval history: 77-year-old female presented with generalized weakness loss of appetite and inability to perform her activities of daily living. Patient was diagnosed with brain tumors July 2022 after which she has declined patient had a transsphenoidal removal of the frontal tumor at [facility]. She is scheduled to get an MRI repeat on May 17. Patient has 247 care at home. The ED evaluation revealed some EKG abnormalities. Hemoglobin of 9.8 which is around baseline. Sodium of 129 TSH of 8.6 UA revealed no evidence of UTI. Chest x-ray was negative. Initially was admitted for placement and PT OT evaluation. Recent admission with recurrent falls RONA and dehydration. 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 CT chest negative for any acute process or malignancy. CT abdomen pelvis also showed no evidence of malignancy other than left inguinal hernia and cholelithiasis without acute cholecystitis. Upon admission she was no
[2023-04-20 15:41] LABS: Osmolality, Urine 414 mOsm/kg (50-1200)
[2023-04-20] MEDS: SODIUM CHLORIDE 500 MG TABLET PO (16:32)
[2023-04-20] MEDS: CYPROHEPTADINE HCL 4 MG TABLET PO (16:32)
--- NOTE | 2023-04-20 17:39 | PC.NURSE ---
pt pulled out IV 3 different times
[2023-04-20 18:03] LABS: Glucose Point of Care 103 mg/dl (65-105)
[2023-04-21] VITALS (9 sets, daily range): BP systolic 105–135; BP diastolic 52–64; PULSE 57–81; RESP 14–17; TEMP 36.5–36.6; O2SAT 94–100
[2023-04-21] MEDS: LEVOTHYROXINE SODIUM 50 MCG TABLET PO (05:08)
[2023-04-21] MEDS: CYPROHEPTADINE HCL 4 MG TABLET PO (05:08)
[2023-04-21 05:54] LABS: Basophils Percent Auto 0.4 % (0.2-1.2); Eosinophils Absolute Auto 0.3 K/mm3 (0-0.3); Eosinophils Percent Auto 6.9 % (0-4.4); Hemoglobin 9.6 g/dL (12.0-15.0); Immature Granulocyte Absolute 0.01 K/mm3 (0.00-0.031); Immature Granulocyte Percent A 0.2 % (0-0.5); Lymphocytes Absolute Auto 2.25 K/mm3 (0.9-3.2); Lymphocytes Percent Auto 48.6 % (18.3-44.2); Mean Corpuscular Hemoglobin 31.1 pg (26-34); Mean Corpuscular Volume 97.1 fl (80-100); Mean Platelet Volume 12.1 fl (7.4-10.4); Monocytes Absolute Auto 0.3 K/mm3 (0.1-0.6); Monocytes Percent Auto 6.3 % (2.6-8.5); Neutrophils Absolute Auto 1.7 K/mm3 (1.3-6.7); Neutrophils Percent Auto 37.6 % (45.5-73.1); Platelet Count Result 258 k/mm3 (150-375); Red Blood Count 3.09 M/mm3 (4.2-5.4); Red Cell Distribution Width 15.4 % (11.5-14.5); White Blood Count 4.6 K/mm3 (4.5-10.0)
[2023-04-21 06:08] LABS: Alanine Aminotransferase 18 U/L (6-35); Albumin Level 3.5 g/dL (3.5-5.1); Alkaline Phosphatase 60 U/L (38-126); Anion Gap 8 mmol/L (8-16); Aspartate Amino Transferase 40 U/L (14-36); Bilirubin,Total 0.6 mg/dL (0.2-1.3); Blood Urea Nitrogen 3 mg/dL (7-17); Calcium 8.9 mg/dL (8.4-10.2); Carbon Dioxide 23 mmol/L (22-30); Chloride 102 mmol/L (98-107); Estimated CRCL calculation 37 ml/min; Estimated Glomerular Filt Rate > 60; Glucose 68 mg/dL (65-110); Magnesium 1.9 mg/dL (1.6-2.3); Potassium 3.9 mmol/L (3.4-5.0); Sodium 133 mmol/L (137-145)
[2023-04-21] MEDS: SODIUM CHLORIDE 500 MG TABLET PO (09:50)
[2023-04-21] MEDS: MULTIVITAMINS THERAPEUTIC TAB (*BKC) 1 TABLET PO (09:50)
[2023-04-21] MEDS: FOLIC ACID 1 MG TABLET PO (09:50)
[2023-04-21] MEDS: OMEGA 3 POLYUNSAT FATTY ACIDS 1 GM CAP PO (09:51)
[2023-04-21] MEDS: ENOXAPARIN 40 MG/0.4 ML SYRINGE SUB-Q (09:51)
[2023-04-21 11:57] LABS: Anion Gap 6 mmol/L (8-16); Blood Urea Nitrogen 3 mg/dL (7-17); Calcium 8.9 mg/dL (8.4-10.2); Carbon Dioxide 27 mmol/L (22-30); Chloride 100 mmol/L (98-107); Estimated CRCL calculation 37 ml/min; Estimated Glomerular Filt Rate > 60; Glucose 85 mg/dL (65-110); Potassium 3.8 mmol/L (3.4-5.0); Sodium 133 mmol/L (137-145)
--- NOTE | 2023-04-21 12:47 | PCDIET ---
Nutrition consult for possible supplement addition. Pt was previously on ensure compact BID, will order that this admission.
--- NOTE | 2023-04-21 13:25 | PM.IMPN ---
Progress Note: A&P Assessment and Plan (1) Brain mass: Code(s): G93.89 - Other specified disorders of brain Status: Acute (2) Frequent falls: Code(s): R29.6 - Repeated falls Status: Acute (3) Generalized weakness: Code(s): R53.1 - Weakness Status: Acute (4) Hypothyroidism: Code(s): E03.9 - Hypothyroidism, unspecified Status: Chronic (5) Hyponatremia: Code(s): E87.1 - Hypo-osmolality and hyponatremia Status: Acute Plan Plan 77-year-old female presented with generalized weakness loss of appetite and inability to perform her activities of daily living.? 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 She is scheduled to get an MRI repeat on May 17.? Patient has 247 care at home.? The ED evaluation revealed some EKG abnormalities.? Hemoglobin of 9.8 which is around baseline.? Sodium of 129 TSH of 8.6 UA revealed no evidence of UTI.? Chest x-ray was negative.? Initially was admitted for placement and PT OT evaluation.? Recent admission with recurrent falls RONA and dehydration.? 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 Mass involves sella suprasellar cistern and prepontine cistern with differential of metastatic disease meningioma in pituitary macroadenoma.? CT chest negative for any acute process or malignancy.? CT abdomen pelvis also showed no evidence of malignancy other than left inguinal hernia and cholelithiasis without acute cholecystitis. Upon admission she was noted to have elevated troponin of 0.184 patient was started on heparin drip.? Cardiology was consulted.? Serial troponin 0.184-0.21 0-0.21 flat trend Echo EF 40% LVH diastolic dysfunction modest aortic insufficiency.? In July 2022 her EF was 45-50%. Chronic anemia stable no signs of bleeding Hyponatremia acute on chronic baseline around 1 30s presented with 129 dip down to 124 and started to come up.? Could be related to her poor p.o. intake.? Looks euvolemic on examination today. Hypoglycemia intermittently likely related to poor p.o. intake as well patient is not a diabetic and not on any hypoglycemic agents.? With her suprasellar/sellar mass possible adrenal insufficiency is there.? Will check her cortisol level 04/21 interim updated: The patient has neurocognitive dysfunction, she is at her reported baseline which is A&Ox1. The POA is Cathy. Cathy would like the patient to leave today and I let her know we'd need more time to monitor sodium. Cathy is apprehensive that the patient should leave tomorrow as well. I let he know we would do our best. The patient has 24/7 care at home and home health, that should be continued on discharge. the pt would receive better continuity of care at [facility], where she had her transsphenoidal mass resection. It is unclear the status of her hypopituitary axis. I have requested record from [facility]. Her hyponatremia being the worst abnormality currently, and unclear if this is from dehydration, adrenal insufficiency or hypothyroidism, consider nephrology consult. Yesterday she was started on salt tablets and her sodium increased from 127 - 133. stopping salt tablets to prevent overcorrection and rechecking sodium now and again in the AM. consider d/c in AM if her sodium is stabilized. Subjective Date/time seen: 04/21/23 13:25 Interval history: NAOE. the patient's POA, Cathy who is a friend, is in the room and discussion is held with her. The patient herself is chronically confused and did not have any complaints to report. She was pleasant. Over 20 minutes discussion held with Cathy, see plan. Review of Systems Review of Systems: All systems reviewed & are unremarkable except as noted in HPI and below Exam Const: General: comfortable and no acute distress Other: A&O1, this is reported
[2023-04-21] MEDS: ACETAMINOPHEN 325 MG TABLET 650 MG PO (20:44)
[2023-04-22] VITALS: PULSE 81
[2023-04-22 04:00] VITALS: PULSE 73
[2023-04-22 05:00] VITALS: BP 108/42; PULSE 73; RESP 17; TEMP 37.1; O2SAT 100
[2023-04-22] MEDS: ACETAMINOPHEN 325 MG TABLET 650 MG PO ×2 (05:03→09:23)
[2023-04-22] MEDS: CYPROHEPTADINE HCL 4 MG TABLET PO (05:04)
[2023-04-22] MEDS: LEVOTHYROXINE SODIUM 50 MCG TABLET PO (05:04)
[2023-04-22 06:10] LABS: Hematocrit 30.7 % (37.0-47.0); Hemoglobin 9.7 g/dL (12.0-15.0); Mean Corpuscular HGB Conc 31.6 g/dl (32-36); Mean Corpuscular Hemoglobin 31.1 pg (26-34); Mean Corpuscular Volume 98.4 fl (80-100); Mean Platelet Volume 11.9 fl (7.4-10.4); Platelet Count Result 257 k/mm3 (150-375); Red Blood Count 3.12 M/mm3 (4.2-5.4); Red Cell Distribution Width 15.5 % (11.5-14.5); White Blood Count 4.7 K/mm3 (4.5-10.0)
[2023-04-22 06:52] LABS: Anion Gap 8 mmol/L (8-16); Blood Urea Nitrogen 4 mg/dL (7-17); Calcium 8.6 mg/dL (8.4-10.2); Carbon Dioxide 24 mmol/L (22-30); Chloride 101 mmol/L (98-107); Estimated CRCL calculation 37 ml/min; Estimated Glomerular Filt Rate > 60; Glucose 73 mg/dL (65-110); Potassium 4.5 mmol/L (3.4-5.0); Sodium 133 mmol/L (137-145)
[2023-04-22 08:00] VITALS: PULSE 71
[2023-04-22] MEDS: MULTIVITAMINS THERAPEUTIC TAB (*BKC) 1 TABLET PO (09:23)
[2023-04-22] MEDS: FOLIC ACID 1 MG TABLET PO (09:23)
[2023-04-22] MEDS: OMEGA 3 POLYUNSAT FATTY ACIDS 1 GM CAP PO (09:24)
[2023-04-22] MEDS: ENOXAPARIN 40 MG/0.4 ML SYRINGE SUB-Q (09:24)
[2023-04-22 12:00] VITALS: PULSE 75
--- NOTE | 2023-04-22 12:50 | PM.DS ---
DS: Admitting Diagnosis Discharge Date 04/22/2023: Admitting Diagnosis Inability to ambulate hyponatremia DS: Discharge Diagnosis Discharge Diagnosis (1) Cardiomyopathy: Code(s): I42.9 - Cardiomyopathy, unspecified Status: Acute (2) Abnormality of gait and mobility: Code(s): R26.9 - Unspecified abnormalities of gait and mobility Status: Acute (3) Weakness: Code(s): R53.1 - Weakness Status: Acute (4) Brain mass: Code(s): G93.89 - Other specified disorders of brain Status: Chronic (5) Falls frequently: Code(s): R29.6 - Repeated falls Status: Acute (6) Weakness: Code(s): R53.1 - Weakness Status: Acute (7) Generalized weakness: Code(s): R53.1 - Weakness Status: Acute (8) Frequent falls: Code(s): R29.6 - Repeated falls Status: Acute (9) Chronic kidney disease: Code(s): N18.9 - Chronic kidney disease, unspecified Status: Acute (10) Chronic anemia: Code(s): D64.9 - Anemia, unspecified Status: Acute (11) Hypothyroidism: Code(s): E03.9 - Hypothyroidism, unspecified Status: Chronic (12) Gastroesophageal reflux disease: Code(s): K21.9 - Gastro-esophageal reflux disease without esophagitis Status: Acute (13) Hyponatremia: Code(s): E87.1 - Hypo-osmolality and hyponatremia Status: Acute DS: Summary Hospital Course Reason for hospitalization: Patient admitted with weakness, decreased appetite, fatigue and hyponatremia Hospital Course: H&P: HPI History of Present Illness Date/Time: 04/17/23? 16:58 Chief Complaint: Weakness, decreased appetite and fatigue Narrative: This is a very pleasant 77-year-old female patient with significant past medical history of hypertension, hyperlipidemia, hypothyroidism, brain masses status post transsphenoidal removal of the frontal mass in due for next MRI May 17, 2023 at [facility] where she is followed by Neurology and Neurosurgery, that is brought to the emergency room for evaluation by her family.? Patient's family is at the bedside and endorses that since her diagnosis of her brain masses in July of this year she has been gradually declining and has been unable to care for herself anymore, requiring 24 hour care.? Patient was recently hospitalized here from April 07 to April 10 with acute kidney injury, weakness, chronic anemia and repeated falls as well as hypotension.? She required IV hydration and was evaluated by PT and OT and did quite well according to the POA who is at the bedside.? Patient had favorable hospitalization and was discharged home now 1 week ago.? Since being home her POA notes that she has once again declined, has become very weak, sleeps a lot and has been unable to participate in her own daily care.? Workup was performed in the emergency room and is notable for hemoglobin of 9.8 which is indirect correlation with her anemia.? She is noted to have a sodium level of 129.? Chloride is also low at 95.? Otherwise renal function is preserved with a creatinine of 1.0 and BUN of 8.? Her albumin remains low at 3.3, however it is increased as compared to albumin of April 10 that was 2.8.? White blood cell count is normal.? Her TSH is noted to be elevated at 8.690.? This is however lower than it was 8 days ago at 9.30 and yet lower than it was in September of this year when it was 10.7.? Her T4 is correlating low at 1.92.? Her urine does not reflect any acute infection nor is she positive for COVID and/or influenza.? Her chest x-ray demonstrated mild atelectasis in lower lung zones.? The emergency room physician has discussed with POA the desire for possible placement as patient has become a 24 hour need for chronic caregiving.? She is agreeable to this at this time.? The emergency room physician has spoken with care coordination who acknowledges patient will need to be admitted at this time.? We will admit her and
== END 2023-04-22 14:10 | disposition home health service (06) | DRG 641 ==
LOC: ANHED 18:03 → ANH3MEDSUR 18:06 → ANHIMU 20:50 → ANH2MED 04-21 14:55 → ANHIMU 04-23 13:51
PROVIDERS: General Practice; Internal Medicine; Internal Medicine Critical Care Medicine; Nurse Practitioner Adult Health; Physician Assistant; Student in an Organized Health Care Education/Training Program; Admitting Provider Student in an Organized Health Care Education/Training Program; Emergency Provider Emergency Medicine; PCP Internal Medicine; Visit Provider Family Medicine
DX: E87.1 Hypo-osmolality and hyponatremia (principal); I43 Cardiomyopathy in diseases classified elsewhere; D49.6 Neoplasm of unspecified behavior of brain; D50.9 Iron deficiency anemia, unspecified; E03.9 Hypothyroidism, unspecified; E78.5 Hyperlipidemia, unspecified; E16.2 Hypoglycemia, unspecified; I13.10 Hypertensive heart and chronic kidney disease without heart failure, with stage 1 through stage 4 chronic kidney disease, or unspecified chronic kidney disease; K21.9 Gastro-esophageal reflux disease without esophagitis; R29.6 Repeated falls; M19.90 Unspecified osteoarthritis, unspecified site; N18.9 Chronic kidney disease, unspecified; R26.9 Unspecified abnormalities of gait and mobility; R94.31 Abnormal electrocardiogram [ECG] [EKG]; Z20.822 Contact with and (suspected) exposure to COVID-19
CPT/HCPCS: 36415; 71046; 80048; 80053; 81003; 82533; 82948; 83735; 83930; 83935; 84295; 84300; 84436; 84443; 84484; 85025; 85027; 85610; 85730; 87636; 93005; 93306; 97161; 97165; 99285; A9270; J1644; J1650; J7030

== ENCOUNTER 2023-04-29 11:15 | Outpatient (CLI) | payer OTHER, SELFPAY ==
[2023-04-29 12:12] LABS: Alanine Aminotransferase 19 U/L (6-35); Alkaline Phosphatase 63 U/L (38-126); Anion Gap 9 mmol/L (8-16); Aspartate Amino Transferase 48 U/L (14-36); Bilirubin,Total 0.7 mg/dL (0.2-1.3); Blood Urea Nitrogen 20 mg/dL (7-17); Calcium 9.4 mg/dL (8.4-10.2); Carbon Dioxide 26 mmol/L (22-30); Chloride 99 mmol/L (98-107); Estimated Glomerular Filt Rate 54; Glucose 123 mg/dL (65-110); Potassium 4.2 mmol/L (3.4-5.0); Sodium 134 mmol/L (137-145)
[2023-04-29 12:50] LABS: Free T4 Free Thyroxine 0.63 ng/mL (0.78-2.19)
== END 2023-04-29 11:16 | disposition home or self-care (01) ==
PROVIDERS: PCP Internal Medicine; Visit Provider Internal Medicine
DX: E03.9 Hypothyroidism, unspecified (principal); R63.4 Abnormal weight loss; I10 Essential (primary) hypertension
CPT/HCPCS: 36415; 80053; 84134; 84439; 84443

== ENCOUNTER 2023-05-08 10:38 | Emergency (ER) | payer OTHER, SELFPAY ==
[2023-05-08] VITALS (58 sets, daily range): BP systolic 92–142; BP diastolic 55–81; PULSE 73–99; RESP 12–26; TEMP 36.4; O2SAT 98–100
--- NOTE | ~2023-05-08 | XR_ITS ---
XR chest 1V portable 05/08/2023 11:44 Indication: Alternative mental status Procedure: AP portable chest Comparison: Comparison to multiple prior studies sequentially, with oldest reviewed study dated 04/02. Findings: Heart size normal. No focal air space disease, pulmonary edema, pleural effusion or suspect ed pneumothorax. Impression: 1: No acute cardiopulmonary disease. Reviewed, dictated and finalized at location L. M EXAMINER Impression: 1: No acute cardiopulmonary disease.
--- NOTE | ~2023-05-08 | CT_ITS ---
EXAMINATION: CTA BRAIN/CAROTID DATE: 05/08/2023 11:56 INDICATION: Altered mental status TECHNIQUE: Computed tomographic angiography (CTA) of the head and neck was performed with 100 mL Omni paque-350 intravenous contrast. Multiplanar reconstructions and maximum intensity projection 3D-recon structions of the carotid arteries and of the intracranial arteries were created by the technologist on a separate workstation. Precontrast CT of the head was also obtained. Automated exposure control and iterative reconstruction technique were employed.The dose-length product was 2188.30 mGy-cm. COMPARISON: CT dated 08/02/2022 and 04/07/2023 and MRI dated 08/04/2022 FINDINGS: Carotid arteries: There is atherosclerotic calcification without hemodynamically significant stenosis at the normal dedra iber aortic arch and the great vessels arising from the arch. No dissection. There is atherosclerotic plaque in the distal bilateral common carotid arteries near the bifurcation without hemodynamic sign ificant stenosis. There is 0% stenosis of the right carotid bulb relative to normal distal artery lum en diameter (NASCET criteria). There is 0% stenosis of the left carotid bulb relative to normal dista l artery lumen diameter. The vertebral arteries are codominant with 50% stenosis at the origin of the left vertebral artery. No evident atherosclerotic plaque along the remainder of the cervical portion s of the vertebral arteries. The visualized upper lungs are clear. The superior mediastinum and cervi dedar soft tissues are unremarkable. Severe cervical spondylosis with anterior fusion at C4-C5 and at C 6-T1. Head: There is a bilobed peripherally enhancing mass likely originating in the fourth ventricle and one com ponent measures 12 x 10 x 9 mm which extends through the left foramen with the second component of th e mass situated between the anterior left cerebellar hemisphere and the posterolateral lola which katherin sures 12 x 8 x 9 mm. The mass does not appear appreciably changed accounting for differences in techn ique since MRI dated 08/04/2022. There is a second peripherally enhancing mass involving the sella, sup rasellar cistern and prepontine cistern which measures 2.5 similar craniocaudally, 2.6 cm left to rig ht and 1 cm in AP thickness which is similarly without significant interval change since the prior MR I. No acute infarction, acute intracranial hemorrhage or abnormal extra axial fluid collection. Chron ic mild dystrophic calcifications at the bilateral lentiform nuclei. There is mild scattered white ma tter hypoattenuation consistent with chronic small vessel ischemic disease. Symmetric prominence of t he sulci and ventricles consistent with mild age-appropriate diffuse cerebral volume loss which is un changed since 08/02/2022. No evident obstructive hydrocephalus. There is mucosal thickening the bilater al ethmoid sinuses, right greater than left. The orbits and mastoid air cells are normal. Intracranial arteries Bilateral vertebral arteries are codominant. There is a small amount of atherosclerotic calcification at the bilateral carotid siphons and at the bilateral vertebral arteries. There is no hemodynamicall y significant stenosis in the vertebral, basilar and internal carotid arteries. There are no aneurysm s identified. Both A1 and P1 segments are patent. Cerebral arterial arborization appears symmetric. IMPRESSION: 1. 0% stenosis of the right and left carotid bulbs relative to normal distal artery lumen diameter (N ASCET criteria). 2. No acute intracranial process. 3. Enhancing mass lesion at the fourth ventricle extending into the left cerebral pontine angle throu gh the left foramen of Luschka with differential including metastatic disease and hemangioblastoma wh ich is unchanged since 08/04/2022. 4. Enhancing mass involving the sella, suprasellar cistern and prepontine cistern with differential i ncluding metastatic disease, meningioma an
--- NOTE | 2023-05-08 10:49 | ECG_ITS ---
Measurements Intervals [place] Rate: 80 P: 15 [place]: 161 QRS: -33 QRSD: 120 T: 151 QT: 415 QTc: 479 Interpretive Statements SINUS RHYTHM MARKED LEFT AXIS DEVIATION [QRS AXIS < -30] RIGHT BUNDLE BRANCH BLOCK [120+ ms QRS DURATION, UPRIGHT V1, 40+ ms S IN I/aVL/V4/V5/V6] POOR R-WAVE PROGRESSION, CANNOT RULE OUT OLD ANTERIOR ME LOW VOLTAGE EKG NONSPECIFIC ST-T CHANGES COMPARED TO ECG 04/18/2023 11:41:35 THE DIFFUSE T-WAVE INVERSION HAS APPROVED Electronically Signed On 05-08-2023 19:12:55 TRUCKING CONTRACTOR by Alcira Torres M.D.
--- NOTE | 2023-05-08 10:53 | ED.AMS ---
HPI - Altered Mental Status General Chief Complaint: Altered Mental Status <Aissatou Mart APRN - Last Filed: 05/08/23 18:54> Stated Complaint: ams <Aissatou Mart APRN - Last Filed: 05/08/23 18:54> Time Seen by Provider: 05/08/23 10:50 <Aissatou Mart APRN - Last Filed: 05/08/23 18:54> Source: patient, EMS and other (KELY Cathy [phone]) <Aissatou Mart APRN - Last Filed: 05/08/23 18:54> Mode of arrival: EMS <Aissatou Mart APRN - Last Filed: 05/08/23 18:54> Limitations: altered mental status, physical limitation and clinical condition <Aissatou Mart APRN - Last Filed: 05/08/23 18:54> History of Present Illness HPI narrative: Patient is a 77-year-old female with past medical history is noted below who presents emergency department today via EMS for evaluation of altered mental status. Per report the patient had laid down around 9:00 a.m. in the morning to take a nap and they had difficulty getting her awake. Physical therapist was there as well as her POA.- POA states she has been declining since being diagnosed with the brain tumor. The patient was unresponsive. Per EMS they had difficulty finding a pulse and her blood pressure was extremely low. Patient was diagnosed with a brain tumor and is being seen at [facility] for that. Typically the patient is alert oriented x4 per report. upon arrival to the ED she is alert and awake with stable vitals. she denies any current symptoms. she states her name, birthdate and states she is at [facility] but is also having confusion and disoriented to situation/place. <Aissatou Mart APRN - Last Filed: 05/08/23 18:54> Related Data Home Medications: Home Medications Medication Instructions Recorded Confirmed qjgijcprxoh-vbbmnzlsn-D-Mn-boron 1 tablet PO BID 03/19/19 04/29/23 750 mg-600 mg-30 mg-1mg-1.5mg tablet multivitamin 1 tablet PO DAILY 03/19/19 04/29/23 omega-3 fatty acids 1,000 mg 1,000 mg PO DAILY 03/08/20 04/29/23 capsule (Fish Oil Concentrate) folic acid 1 mg tablet 1 mg PO DAILY 04/17/23 04/29/23 <Aissatou Mart APRN - Last Filed: 05/08/23 18:54> Allergies/Adverse Reactions: Allergies Allergy/AdvReac Type Severity Reaction Status Date / Time Sulfa (Sulfonamide Allergy Unknown Unknown Verified 04/29/23 10:15 Antibiotics) <Aissatou Mart APRN - Last Filed: 05/08/23 18:54> Review of Systems Review of Systems: ROS unobtainable: Yes unobtainable due to medical condition and unobtainable due to mental status (confusion) <Aissatou Mart APRN - Last Filed: 05/08/23 18:54> [facility] Past Medical History Medical History: Medical History Abnormality of gait and mobility Adult BMI <19 kg/sq m Benign essential hypertension Chronic anemia Chronic kidney disease Chronic sinusitis Gastroesophageal reflux disease Hearing loss Hyperlipidemia Hypertension Hypothyroidism Impaired glucose tolerance (oral) Iron deficiency anemia Osteoarthritis Reactive airway disease Seasonal allergies <Aissatou Mart APRN - Last Filed: 05/08/23 18:54> Surgical History Surgical History: Surgical History History of colonoscopy with polypectomy History of hysteroscopy (05/2003) With D&C and polypectomy for postmenopausal bleeding, pathology benign. History of ovarian cystectomy (1991) History of tonsillectomy (1974) Status post anal fissurectomy (1972) <Aissatou Mart APRN - Last Filed: 05/08/23 18:54> Family History Family History: Family History Father Diabetes mellitus Family history of cardiovascular disease Family history of diabetes mellitus in first degree relative Family history of heart disease in male family member before age 55 Cancer Hypertension Cerebrovascular accident Mother Family history of A
[2023-05-08 11:19] LABS: Basophils Percent Auto 0.5 % (0.2-1.2); Eosinophils Absolute Auto 0.3 K/mm3 (0-0.3); Eosinophils Percent Auto 5.1 % (0-4.4); Hematocrit 30.4 % (37.0-47.0); Hemoglobin 9.5 g/dL (12.0-15.0); Immature Granulocyte Absolute 0.01 K/mm3 (0.00-0.031); Immature Granulocyte Percent A 0.2 % (0-0.5); Lymphocytes Absolute Auto 1.88 K/mm3 (0.9-3.2); Lymphocytes Percent Auto 31.7 % (18.3-44.2); Mean Corpuscular HGB Conc 31.3 g/dl (32-36); Mean Corpuscular Hemoglobin 31.1 pg (26-34); Mean Corpuscular Volume 99.7 fl (80-100); Mean Platelet Volume 11.1 fl (7.4-10.4); Monocytes Absolute Auto 0.4 K/mm3 (0.1-0.6); Monocytes Percent Auto 6.9 % (2.6-8.5); Neutrophils Absolute Auto 3.3 K/mm3 (1.3-6.7); Neutrophils Percent Auto 55.6 % (45.5-73.1); Platelet Count Result 264 k/mm3 (150-375); Red Blood Count 3.05 M/mm3 (4.2-5.4); Red Cell Distribution Width 14.1 % (11.5-14.5); White Blood Count 5.9 K/mm3 (4.5-10.0)
[2023-05-08 11:30] LABS: Prothrombin Time 13.3 Seconds (11.1-14.7)
[2023-05-08 11:31] LABS: Partial Thromboplastin Time 28.7 SECONDS (22.3-36.8)
[2023-05-08 11:32] LABS: Ammonia < 9 umol/L (9-30)
[2023-05-08 11:32] LABS: Alanine Aminotransferase 13 U/L (6-35); Albumin Level 3.8 g/dL (3.5-5.1); Alkaline Phosphatase 68 U/L (38-126); Anion Gap 7 mmol/L (8-16); Aspartate Amino Transferase 32 U/L (14-36); Bilirubin,Total 0.9 mg/dL (0.2-1.3); Blood Urea Nitrogen 14 mg/dL (7-17); Calcium 9.1 mg/dL (8.4-10.2); Carbon Dioxide 24 mmol/L (22-30); Chloride 99 mmol/L (98-107); Estimated CRCL calculation 32 ml/min; Estimated Glomerular Filt Rate 54; Glucose 102 mg/dL (65-110); Magnesium 1.8 mg/dL (1.6-2.3); Potassium 4.3 mmol/L (3.4-5.0); Sodium 130 mmol/L (137-145)
[2023-05-08 12:09] LABS: Lactic Acid Reflex 1.4 mmol/L (0.7-2.0)
[2023-05-08 12:56] LABS: Appearance Urine Cloudy (Clear); Bacteria Urine None Seen /hpf; Bilirubin Urine Negative (Negative); Blood Urine Negative (Negative); Color Urine Yellow (Yellow); Glucose Urine UA Negative (Negative); Ketones Urine Negative (Negative); Leukocyte Esterase Ur Negative LEU/UL (Negative); Nitrate Urine Negative (Negative); Non Pathogenic Casts 0-2; Protein Urine Negative (Negative); RBC Urine 0-2 /hpf (0-2); Squamous Epithelial Cell Urine None seen /hpf (Few); Urobilinogen Urine 0.2 mg/dL (<2.0); WBC Urine 0-5 /hpf; pH Urine 7.5 (5.0-9.0)
[2023-05-08 13:10] LABS: Add Urine Microscopic? YES
[2023-05-08 14:58] LABS: Troponin I 0.092 ng/mL (0.000-0.034)
[2023-05-08 17:46] LABS: Cortisol Random 3.68 ug/dL
== END 2023-05-08 21:13 | disposition short-term general hospital (02) ==
PROVIDERS: Emergency Medicine; Emergency Provider Nurse Practitioner; PCP Internal Medicine
DX: R41.82 Altered mental status, unspecified (principal); E87.1 Hypo-osmolality and hyponatremia; R53.1 Weakness; D64.9 Anemia, unspecified; G93.89 Other specified disorders of brain; I12.9 Hypertensive chronic kidney disease with stage 1 through stage 4 chronic kidney disease, or unspecified chronic kidney disease; N18.9 Chronic kidney disease, unspecified; J45.909 Unspecified asthma, uncomplicated; E78.5 Hyperlipidemia, unspecified; E03.9 Hypothyroidism, unspecified; M19.90 Unspecified osteoarthritis, unspecified site; K21.9 Gastro-esophageal reflux disease without esophagitis; I45.10 Unspecified right bundle-branch block; R94.31 Abnormal electrocardiogram [ECG] [EKG]
CPT/HCPCS: 36415; 70496; 70498; 71045; 80053; 81001; 82140; 82533; 83605; 83735; 84443; 84484; 85025; 85610; 85730; 87040; 87147; 87181; 87186; 93005; 99285; Q9967

== ENCOUNTER 2023-05-23 02:42 | Emergency (ER) | payer OTHER, SELFPAY ==
--- NOTE | ~2023-05-23 | CT_ITS ---
Noncontrast CT scan of the cervical spine Technique: Multiple contiguous axial [address] images of the cervical spine were obtained and rec onstructed in 2D sagittal and coronal planes on the acquisition scanner. Dose reduction technique was used on this scan by utilizing automated exposure control, adjustment of the mA and/or kV according to patient size. The dose-length product (DLP) was 125.49 mGy-cm. Clinical History: Pain Findings: No acute fracture identified in the cervical spine. There is 2-3 mm retrolisthesis of C3 ov er C4. There is minimal grade 1 retrolisthesis of C5 over C6. There is fusion across the C4-C5 and th e C6-C7 disc spaces. There is severe degenerative disc narrowing at C5-C6. There is moderate to sever e degenerative disc narrowing at C3-C4. There is fusion of the right C2-C3 facet joint. There is left neural foraminal narrowing at C3-C4 with probable left facet arthropathy. There is bila teral neural foraminal narrowing, severe in the right side, at C5-C6, disc ossify complex and facet a rthropathy present. No prevertebral soft tissue swelling. Impression: No acute fracture. 2-3 mm retrolisthesis of C3 over C4. Minimal grade 1 retrolisthesis of C5 over C6. Degenerative spondylosis, as above. Reviewed, dictated and finalized at [facility]. INE APPLICATOR CEMENTER Impression: No acute fracture. 2-3 mm retrolisthesis of C3 over C4. Minimal grade 1 retrolisthesis of C5 over C6. Degenerative spondylosis, as above.
--- NOTE | ~2023-05-23 | CT_ITS ---
CT head without contrast Indication: Head injury COMPARISON: 05/08/2023 Technique: Serial scans were obtained through the brain without the administration of contrast. Dose reduction technique was used on this scan by utilizing automated exposure control and iterative recon struction technique. The dose-length product (DLP) was 681.00 mGy-cm. Findings: Again present is fourth ventricular mass extending through the left foramen of Luschka into the left CP angle region, unchanged from prior exam. No intracranial hemorrhage or acute infarct jay ntified. The ventricles and subarachnoid spaces are dilated, consistent with mild atrophy. Low atten uation regions are seen within the periventricular white matter bilaterally, likely representing rosales ges from chronic microvascular ischemic disease. There is no evidence of edema, mass effect or midli ne shift. The visualized paranasal sinuses and mastoid air cells are clear. 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 No intracranial hemorrhage or acute infarct seen. Atrophy and chronic white matter changes, as above. Reviewed, dictated and finalized at location M. AL AND COMMUNICATIONS MAINTAINER Impression: Stable fourth ventricular mass extending through the foramen of Luschka into th e left CP angle region. No intracranial hemorrhage or acute infarct seen. Atrophy and chronic white matter changes, as above.
--- NOTE | ~2023-05-23 | XR_ITS ---
Portable chest x-ray Comparison: 05/08/2023 Clinical History: Chest pain Findings: Minimal haziness retrocardiac region. Right lung clear. Cardiomediastinal silhouette is s table. Bones and soft tissues are unremarkable. Impression: Minimal haziness retrocardiac region. Correlate for left lower lobe pneumonia or atelectasis. Reviewed, dictated and finalized at location . E FERRY OPERATOR Impression: Minimal haziness retrocardiac region. Correlate for left lower lobe pneumonia o r atelectasis.
[2023-05-23 02:41] VITALS: BP 105/85; PULSE 65; RESP 16; TEMP 36.3; O2SAT 96
--- NOTE | 2023-05-23 02:51 | ECG_ITS ---
Measurements Intervals [place] Rate: 63 P: -4 DC: 160 QRS: -24 QRSD: 134 T: 130 QT: 448 QTc: 459 Interpretive Statements SINUS RHYTHM BORDERLINE LEFT AXIS DEVIATION [QRS AXIS < -20] RIGHT BUNDLE BRANCH BLOCK [120+ ms QRS DURATION, UPRIGHT V1, 40+ ms S IN I/aVL/V4/V5/V6] LOW-VOLTAGE QRS ABNORMAL ECG COMPARED TO ECG 05/08/2023 10:57:25 NO SIGNIFICANT CHANGES Electronically Signed On 05-23-2023 15:09:07 SANDER OPERATOR by Rodrigo Warrne M.D.
--- NOTE | 2023-05-23 02:54 | ED.FALL ---
HPI - Fall General Chief Complaint: Fall Stated Complaint: fall Time Seen by Provider: 05/23/23 02:43 History of Present Illness HPI Narrative: 77-year-old female presenting to the emergency department for evaluation after having a ground level fall. Patient initially denies any pain or injury. Patient did have an abrasion to the left side of her forehead and patient had some left-sided chest wall tenderness to palpation. patient states he just started at this residential a few days ago. Related Data Home Medications Medication Instructions Recorded Confirmed lrrmuxbsmvl-wylxtcvva-S-Mn-boron 1 tablet PO BID 03/19/19 04/29/23 750 mg-600 mg-30 mg-1mg-1.5mg tablet multivitamin 1 tablet PO DAILY 03/19/19 04/29/23 omega-3 fatty acids 1,000 mg 1,000 mg PO DAILY 03/08/20 04/29/23 capsule (Fish Oil Concentrate) folic acid 1 mg tablet 1 mg PO DAILY 04/17/23 04/29/23 Allergies Allergy/AdvReac Type Severity Reaction Status Date / Time Sulfa (Sulfonamide Allergy Unknown Unknown Verified 05/23/23 06:11 Antibiotics) Review of Systems Review of Systems: All systems reviewed & are unremarkable except as noted in HPI and below PMFSH Past Medical History Medical History Abnormality of gait and mobility Adult BMI <19 kg/sq m Benign essential hypertension Chronic anemia Chronic kidney disease Chronic sinusitis Gastroesophageal reflux disease Hearing loss Hyperlipidemia Hypertension Hypothyroidism Impaired glucose tolerance (oral) Iron deficiency anemia Osteoarthritis Reactive airway disease Seasonal allergies Surgical History Surgical History History of colonoscopy with polypectomy History of hysteroscopy (05/2003) With D&C and polypectomy for postmenopausal bleeding, pathology benign. 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 Code status: Full code. Smoking status: Never smoker Second hand tobacco smoke exposure: No Alcohol intake: never Substance use: never Substance use type: does not use Lack of Transportation: No Lack of Food: Never True Current Housing: I Have Housing Concerned About Future Housing: No Difficulty Paying Gas/Electric Bills: No Difficulty Paying for Meds: No Currently Unemployed: No Education: Bachelor's Degree Difficulty w/ Childcare or Family Care: No Living arrangements: alone Additional living arrangements comments: Single, never with no children. Lives alone in [place]. 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 Spiritual care concerns: No Exam Narrative: APPEARANCE: Well appearing, no pain, no distress, well-nourished. HEAD: normocephalic, atraumatic. EYES: PERRLA/EOMI, conjunctivae clear. NOSE: Normal no drainage EARS:TMS clear with good light reflex. THROAT: Pharynx clear, no exudate. NECK: Supple. No adenopathy, no masses. RESPIRATORY: Airway patent, respirations nonlabored. Clear to auscultation bilaterally, no rales, rhonchi, wheezing. CARDIOVASCULAR: Regular rate and rhythm without murmurs rubs or gallops. ABDOMINAL: Soft, nontender, nondistended, normal bowel sounds MUSCULOSKELETAL: left-sided chest wall tenderness
[2023-05-23 05:21] VITALS: BP 108/67; PULSE 63; RESP 15; O2SAT 96
[2023-05-23] MEDS: ACETAMINOPHEN 500 MG TABLET 1000 MG PO (06:24)
[2023-05-23] MEDS: CYCLOBENZAPRINE HCL 10 MG TABLET PO (06:24)
[2023-05-23 06:47] VITALS: BP 115/62; PULSE 62; RESP 16; O2SAT 98
== END 2023-05-23 07:30 ==
PROVIDERS: Emergency Provider Emergency Medicine; PCP Internal Medicine
DX: S09.90XA Unspecified injury of head, initial encounter (principal); S20.212A Contusion of left front wall of thorax, initial encounter; W18.30XA Fall on same level, unspecified, initial encounter; N18.9 Chronic kidney disease, unspecified; E78.5 Hyperlipidemia, unspecified; E03.9 Hypothyroidism, unspecified; I12.9 Hypertensive chronic kidney disease with stage 1 through stage 4 chronic kidney disease, or unspecified chronic kidney disease
CPT/HCPCS: 70450; 71045; 72125; 93005; 99284; A9270

== ENCOUNTER 2023-06-01 09:26 | Emergency (ER) | payer OTHER, SELFPAY ==
--- NOTE | ~2023-06-01 | CT_ITS ---
EXAMINATION: CT brain wo con DATE: 06/01/2023 10:28 INDICATION: Head injury. TECHNIQUE: Computed tomography (CT) of the head was performed without intravenous contrast. The mA wa s adjusted according to patient size. Iterative reconstruction technique was employed. The dose-lengt h product was 605.33 mGy-cm. COMPARISON: Head CT 05/23/2023 FINDINGS: There are scattered areas of low attenuation in the cerebral white matter, which is within normal limits for the patient's age. There is no intracranial hemorrhage, acute infarction, or abnorm al intracranial mass lesion. Again seen is normal choroid plexus in the fourth ventricle and left for amen of Luschka. The ventricles are normal in size. There is mucosal thickening in the paranasal sinu ses. There is thickening and sclerosis of the lucero of right sphenoid sinus, consistent with chronic sinusitis. The mastoid air cells are normal. The orbits are normal. There is right posterior superior scalp soft tissue swelling. IMPRESSION: 1. Normal aging brain. Reviewed, dictated and finalized at location A. INE CAGE MAKER IMPRESSION: 1. Normal aging brain.
--- NOTE | ~2023-06-01 | CT_ITS ---
EXAMINATION: CT cervical spine wo con DATE: 06/01/2023 10:28 INDICATION: Head injury. TECHNIQUE: Computed tomography (CT) of the cervical spine was performed without intravenous contrast. Automated exposure control and iterative reconstruction technique were employed. The dose-length pro duct was 85.06 mGy-cm. COMPARISON: CT cervical spine 05/23/2023 FINDINGS: There is 2 mm retrolisthesis of C5 on C6. There is 6 degrees levocurvature of cervical spin e. Vertebral body heights are normal. There is mildly decreased disc height at C2-C3 and severely dec reased disc height at C3-C4 and C5-C6 with endplate remodeling. There is interbody fusion at C4-C5, C 6-C7, and C7-T1, likely developmental. The following disc levels are specifically discussed: C2-C3: There is mild bilateral uncovertebral joint osteoarthritis. There is severe left facet joint o steoarthritis. There is ankylosis of right facet joint with mild hypertrophy. There is mild right jacqueline ral foraminal stenosis. There is no central canal stenosis. C3-C4: There is moderate right and severe left uncovertebral joint osteoarthritis. There is severe bi lateral facet joint osteoarthritis. There is mild right and moderate left neural foraminal stenosis. There is mild central canal stenosis. C4-C5: There is no uncovertebral joint hypertrophy. There is ankylosis of the facet joints without hy pertrophy. There is no neural foraminal stenosis. There is no central canal stenosis. C5-C6: There is severe bilateral uncovertebral joint osteoarthritis. There is severe bilateral facet joint osteoarthritis. There is moderate right and mild left neural foraminal stenosis. There is mild central canal stenosis. C6-C7: There is no uncovertebral joint hypertrophy. There is ankylosis of the facet joints without hy pertrophy. There is no neural foraminal stenosis. There is no central canal stenosis. C7-T1: There is no uncovertebral joint hypertrophy. There is ankylosis of the facet joints with mild left hypertrophy. There is mild left neural foraminal stenosis. There is no central canal stenosis. IMPRESSION: 1. No fracture. 2. Severe cervical spondylosis. Reviewed, dictated and finalized at location A. H HAND
[2023-06-01 09:27] VITALS: BP 100/49; PULSE 83; RESP 18; TEMP 36.2; O2SAT 100
[2023-06-01 09:46] VITALS: BP 96/47; PULSE 75; RESP 18; O2SAT 100
--- NOTE | 2023-06-01 09:52 | ED.FALL ---
HPI - Fall General Chief Complaint: Fall Stated Complaint: glf Time Seen by Provider: 06/01/23 09:51 Source: patient, EMS and other (caregiver/friend ) Mode of arrival: ambulatory Limitations: other (mental status/confusion baseline) History of Present Illness HPI Narrative: patient is a 77 year old female with past medical hx as noted below who presents to the ED today from nursing facility for evaluation after a ground level fall where she fell backwards. she has been falling recently. Patient currently denies any pain. she has been dealing with frequent falls and seen here before. she did not have a syncope episode. she has not had any reported fever. no numbness/tingling to lower extremities. Related Data Home Medications Medication Instructions Recorded Confirmed [id number] 1 tablet PO BID 03/19/19 04/29/23 750 mg-600 mg-30 mg-1mg-1.5mg tablet multivitamin 1 tablet PO DAILY 03/19/19 04/29/23 omega-3 fatty acids 1,000 mg 1,000 mg PO DAILY 03/08/20 04/29/23 capsule (Fish Oil Concentrate) folic acid 1 mg tablet 1 mg PO DAILY 04/17/23 04/29/23 lisinopril 20 mg tablet mg 06/01/23 06/01/23 Allergies Allergy/AdvReac Type Severity Reaction Status Date / Time Sulfa (Sulfonamide Allergy Unknown Unknown Verified 05/23/23 06:11 Antibiotics) Review of Systems Review of Systems: ROS unobtainable: Yes other (cognition/baseline mental status with confusion ) [facility] Past Medical History Medical History Abnormality of gait and mobility Adult BMI <19 kg/sq m Benign essential hypertension Chronic anemia Chronic kidney disease Chronic sinusitis Gastroesophageal reflux disease Hearing loss Hyperlipidemia Hypertension Hypothyroidism Impaired glucose tolerance (oral) Iron deficiency anemia Osteoarthritis Reactive airway disease Seasonal allergies Surgical History Surgical History History of colonoscopy with polypectomy History of hysteroscopy (05/2003) With D&C and polypectomy for postmenopausal bleeding, pathology benign. History of ovarian cystectomy (1991) History of tonsillectomy (1974) Status post anal fissurectomy (1972) Family History Family History Father Diabetes mellitus Family history of cardiovascular disease Family history of diabetes mellitus in first degree relative Family history of heart disease in male family member before age 55 Cancer Hypertension Cerebrovascular accident Mother Family history of Alzheimer's disease Diabetes mellitus Hypertension Social History Social History Social History: Healthcare power of outdoor emergency care technician: Cathy Gray, friend. Code status: Full code. Smoking status: Never smoker Second hand tobacco smoke exposure: No Alcohol intake: never Substance use: never Substance use type: does not use Lack of Transportation: No Lack of Food: Never True Current Housing: I Have Housing Concerned About Future Housing: No Difficulty Paying Gas/Electric Bills: No Difficulty Paying for Meds: No Currently Unemployed: No Education: Bachelor's Degree Difficulty w/ Childcare or Family Care: No Living arrangements: alone Additional living arrangements comments: Single, never with no children. Lives alone in [place]. 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 Spiritual care concerns: No Exam Narrative: GENERAL: thin, elderly female resting on exam stretcher, awake and alert, and in no acute distress. HEAD: large yellow bruise noted to right forehead from prior fall. no acute laceration/hematoma to head. no facial drooping. EYES: PERRLA. ENT: Nares clear, no rhinorrhea or epistaxis.? Mucous membranes moist. NECK: Supple. no
[2023-06-01 10:26] LABS: Basophils Percent Auto 0.2 % (0.2-1.2); Eosinophils Percent Auto 0.4 % (0-4.4); Hematocrit 28.8 % (37.0-47.0); Hemoglobin 8.8 g/dL (12.0-15.0); Immature Granulocyte Absolute 0.08 K/mm3 (0.00-0.031); Lymphocytes Absolute Auto 0.97 K/mm3 (0.9-3.2); Lymphocytes Percent Auto 12.1 % (18.3-44.2); Mean Corpuscular HGB Conc 30.6 g/dl (32-36); Mean Corpuscular Hemoglobin 31.9 pg (26-34); Mean Corpuscular Volume 104.3 fl (80-100); Monocytes Absolute Auto 0.5 K/mm3 (0.1-0.6); Monocytes Percent Auto 5.7 % (2.6-8.5); Neutrophils Absolute Auto 6.5 K/mm3 (1.3-6.7); Neutrophils Percent Auto 80.6 % (45.5-73.1); Platelet Count Result 193 k/mm3 (150-375); Red Blood Count 2.76 M/mm3 (4.2-5.4); Red Cell Distribution Width 14.7 % (11.5-14.5)
[2023-06-01 10:37] LABS: Prothrombin Time 13.3 Seconds (11.1-14.7)
[2023-06-01 10:38] LABS: Alanine Aminotransferase 18 U/L (6-35); Albumin Level 3.6 g/dL (3.5-5.1); Alkaline Phosphatase 74 U/L (38-126); Anion Gap 9 mmol/L (8-16); Aspartate Amino Transferase 30 U/L (14-36); Blood Urea Nitrogen 21 mg/dL (7-17); Calcium 8.7 mg/dL (8.4-10.2); Carbon Dioxide 21 mmol/L (22-30); Chloride 99 mmol/L (98-107); Estimated Glomerular Filt Rate 44; Glucose 112 mg/dL (65-110); Potassium 4.7 mmol/L (3.4-5.0); Sodium 129 mmol/L (137-145)
[2023-06-01] MEDS: SODIUM CHLORIDE 0.9% IV 1,000 ML 999 ML IV CONT (12:26)
[2023-06-01 12:42] VITALS: BP 109/73; PULSE 79; RESP 22; O2SAT 98
[2023-06-01 13:39] VITALS: BP 109/66; PULSE 81; RESP 20; O2SAT 100
--- NOTE | 2023-06-01 14:39 | PC.NURSE ---
Pt family called out requesting for Rn to come assess IV. Upon entering, pt had pulled out IV catheter with approx, 200 mL left in bag. PA made aware, states patient can be discharged.
[2023-06-01 15:11] VITALS: BP 114/97; PULSE 86; RESP 20; O2SAT 97
[2023-06-01 16:00] VITALS: BP 125/55; PULSE 80; RESP 18; O2SAT 96
== END 2023-06-01 16:00 ==
PROVIDERS: Emergency Provider Nurse Practitioner; PCP Internal Medicine
DX: S09.90XA Unspecified injury of head, initial encounter (principal); I12.9 Hypertensive chronic kidney disease with stage 1 through stage 4 chronic kidney disease, or unspecified chronic kidney disease; N18.9 Chronic kidney disease, unspecified; D64.9 Anemia, unspecified; K21.9 Gastro-esophageal reflux disease without esophagitis; E03.9 Hypothyroidism, unspecified; M19.90 Unspecified osteoarthritis, unspecified site; W19.XXXA Unspecified fall, initial encounter
CPT/HCPCS: 36415; 70450; 72125; 80053; 85025; 85610; 96360; 96361; 99284; J7030

== ENCOUNTER 2023-06-27 08:13 | Emergency (ER) | payer OTHER, SELFPAY ==
[2023-06-27] VITALS (7 sets, daily range): BP systolic 88–100; BP diastolic 36–62; PULSE 73–86; RESP 14–20; TEMP 36.3–36.4; O2SAT 98–100
--- NOTE | 2023-06-27 08:35 | PC.NURSE ---
care coordination called for hospice consult
--- NOTE | 2023-06-27 08:53 | ED.GENADULT ---
HPI - General Adult General Chief complaint: Altered Mental Status Stated complaint: altered LOC Time Seen by Provider: 06/27/23 08:25 History of Present Illness HPI narrative: Patient is a 77-year-old female who presents ER with depressed mental status. Patient was found during room checked today and is only responsive to pain. Blood pressure in the 80s for EMS. Patient unable to provide any history. She is responsive to pain and localizes but will not speak. Paperwork provided shows patient wants only comfort treatment in no additional aggressive interventions. Related Data Home Medications Medication Instructions Recorded Confirmed [id number] 1 tablet PO BID 03/19/19 04/29/23 750 mg-600 mg-30 mg-1mg-1.5mg tablet multivitamin 1 tablet PO DAILY 03/19/19 04/29/23 omega-3 fatty acids 1,000 mg 1,000 mg PO DAILY 03/08/20 04/29/23 capsule (Fish Oil Concentrate) folic acid 1 mg tablet 1 mg PO DAILY 04/17/23 04/29/23 lisinopril 20 mg tablet mg 06/01/23 06/01/23 Allergies Allergy/AdvReac Type Severity Reaction Status Date / Time Sulfa (Sulfonamide Allergy Unknown Unknown Verified 05/23/23 06:11 Antibiotics) Review of Systems Review of Systems: ROS unobtainable: Yes unobtainable due to medical condition PMFSH Past Medical History Medical History Abnormality of gait and mobility Adult BMI <19 kg/sq m Benign essential hypertension Chronic anemia Chronic kidney disease Chronic sinusitis Gastroesophageal reflux disease Hearing loss Hyperlipidemia Hypertension Hypothyroidism Impaired glucose tolerance (oral) Iron deficiency anemia Osteoarthritis Reactive airway disease Seasonal allergies Surgical History Surgical History History of colonoscopy with polypectomy History of hysteroscopy (05/2003) With D&C and polypectomy for postmenopausal bleeding, pathology benign. History of ovarian cystectomy (1991) History of tonsillectomy (1974) Status post anal fissurectomy (1972) Family History Family History Father Diabetes mellitus Family history of cardiovascular disease Family history of diabetes mellitus in first degree relative Family history of heart disease in male family member before age 55 Cancer Hypertension Cerebrovascular accident Mother Family history of Alzheimer's disease Diabetes mellitus Hypertension Social History Social History Social History: Healthcare power of civil attorney: Cathy Gray, friend. Code status: Full code. Smoking status: Never smoker Second hand tobacco smoke exposure: No Alcohol intake: never Substance use: never Substance use type: does not use Lack of Transportation: No Lack of Food: Never True Current Housing: I Have Housing Concerned About Future Housing: No Difficulty Paying Gas/Electric Bills: No Difficulty Paying for Meds: No Currently Unemployed: No Education: Bachelor's Degree Difficulty w/ Childcare or Family Care: No Living arrangements: alone Additional living arrangements comments: Single, never with no children. Lives alone in [place]. 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 Spiritual care concerns: No Exam Narrative: GENERAL: chronically ill-appearing, thin, and in no acute distress. HEAD: Normocephalic, atraumatic. EYES: PERRL ENT: Mucous membranes moist. CHEST: Clear to auscultation. No respiratory distress. HEART: Regular rate and rhythm. Normal peripheral pulses. ABDOMEN: Soft, nontender, nondistended. EXTREMITIES: Normal range of motion. No edema. SKIN: Warm, dry, no rash. NEURO: patient lying in bed, she localizes to sternal rub but follows no commands and only groans
--- NOTE | 2023-06-27 12:36 | PCCCNOTE ---
[id number] CC called to the ED for Hospice placement for this patient. Patient is only responsive to stimuli, unable to speak. Pt friend and POA, Cathy Gray ([phone]), was called to get her preference of [facility]. She chose [facility], information was faxed to them, called and spoke to Tiffany regarding coming to the hospital to evaluate patient for GIP. [facility] sent the consents to Cathy, awaiting for the POA papers and consents to get back to the office. [id number] that they received all necessary documents and a nurse will be here shortly. ER updated.
== END 2023-06-27 15:54 ==
PROVIDERS: Emergency Provider Emergency Medicine; PCP Internal Medicine
DX: R62.7 Adult failure to thrive (principal); I12.9 Hypertensive chronic kidney disease with stage 1 through stage 4 chronic kidney disease, or unspecified chronic kidney disease; N18.9 Chronic kidney disease, unspecified; J32.9 Chronic sinusitis, unspecified; J45.909 Unspecified asthma, uncomplicated; E78.5 Hyperlipidemia, unspecified; E03.9 Hypothyroidism, unspecified; K21.9 Gastro-esophageal reflux disease without esophagitis; D50.9 Iron deficiency anemia, unspecified; M19.90 Unspecified osteoarthritis, unspecified site
CPT/HCPCS: 99283